=== PATIENT | female | born 1990 | race Caucasian/White ===

== ENCOUNTER → 2017-12-16 | Outpatient (CLI) | payer OTHER | LOC: M SMT 08:59 | DX: M50.323 Other cervical disc degeneration at C6-C7 level (principal) | CPT/HCPCS: 72052 ==

== ENCOUNTER → 2018-04-27 | Outpatient (CLI) | payer OTHER ==
--- NOTE | 2018-04-29 13:02 | REP ---
MR CERVICAL SPINE WITHOUT CONTRAST: HISTORY: Cervicalgia. A small central disc protrusion is present at the C4-5 level. There is minimal effacement of the thecal sac without spinal cord compression. The C4 neural foramina are patent. A disc bulge is present at the C5-6 level. There is minimal effacement of the thecal sac without spinal cord compression. The C5 neural foramina are patent. A disc bulge and small central disc extrusion are present at the C6-7 level. There is minimal spinal cord compression. Uncinate process hypertrophy is present on the left. This produces minimal narrowing of the left C6 neural foramen. The right C6 neural foramen is patent. There is no other disc bulge or herniation. The remaining neural foramina are patent. The spinal cord is normal in signal intensity. Increased signal intensity on T2 weighted images is present in the superior endplate of the C7 vertebral body. This represents degenerative change. IMPRESSION: There is cervical spondylosis at the C4-5 through C6-7 levels most significant at the C6-7 level where there is minimal spinal cord compression. Electronically Signed by Mamadou Cornelius MD 04/29/2018 01:28 P
== END ==
LOC: M RAD 15:52
PROVIDERS: ATTEND Physician Assistant Medical
DX: M47.12 Other spondylosis with myelopathy, cervical region (principal)

== ENCOUNTER → 2018-05-19 | Outpatient (REF) | payer OTHER | LOC: M SFHCPLAZ 15:38 | PROVIDERS: ATTEND Physician Assistant Medical | DX: Z12.4 Encounter for screening for malignant neoplasm of cervix (principal); Z78.9 Other specified health status | CPT/HCPCS: G0123; G0463 ==

== ENCOUNTER → 2018-07-21 | Outpatient (CLI) | payer OTHER ==
--- NOTE | 2018-07-21 14:21 | REP ---
REASON FOR EXAM: Dyspnea. PRIORS: None. FINDINGS: The superior mediastinal structures are midline. The cardiac silhouette is unremarkable in size, shape, and position. The diaphragmatic surfaces of the lungs are regular, and the costophrenic angles are clear. The pulmonary wang are clear. The imaged osseous structures are intact. IMPRESSION: There is no acute cardiopulmonary disease. Electronically Signed by Manuel Ortiz DO 07/21/2018 03:37 P
== END ==
LOC: M SMT 12:58
PROVIDERS: ATTEND Physician Assistant Medical
DX: R06.02 Shortness of breath (principal)
CPT/HCPCS: 71046; 87804; G0463

== ENCOUNTER 2018-11-03 08:45 | Outpatient (RCR) | payer OTHER | END 2018-11-04 | LOC: M PT 08:45 | PROVIDERS: ATTEND Physician Assistant Medical | DX: Z51.89 Encounter for other specified aftercare (principal); G95.20 Unspecified cord compression ==

== ENCOUNTER → 2018-11-26 | Outpatient (CLI) | payer OTHER ==
[2018-11-26 13:29] LABS: HCG, SERUM QUALITATIVE POSITIVE (NEGATIVE)
[2018-11-26 13:58] LABS: HCG, SERUM QUANTITATIVE 18192 MIU/ML
== END ==
LOC: M LAB 12:01
PROVIDERS: ATTEND Physician Assistant Medical
DX: Z34.91 Encounter for supervision of normal pregnancy, unspecified, first trimester (principal); Z3A.00 Weeks of gestation of pregnancy not specified

== ENCOUNTER → 2018-11-27 | Outpatient (CLI) | payer OTHER ==
--- NOTE | 2018-11-27 13:29 | REP ---
First trimester pelvic ultrasound for vaginal bleeding, stat request: The study is performed with transabdominal, endovaginal and Doppler ultrasound assessment: There are two intrauterine gestational sacs. There is a normal size yolk sac within each gestational sac, one yolk sac measuring 4 mm and the other 3 mm in diameter. The findings are compatible with a dichorionic, diamniotic gestation. The mean gestational sac diameter of twin A is 11.3 ml corresponding to a gestational age of 6 weeks 1 day. The mean gestational sac diameter of twin B is 14.3 mm corresponding to a gestational age of 6 weeks 5 days. No subchorionic hematoma is identified. The ovaries are normal size. The right ovary measuring 3.421 x 2.1 cm in left ovary measuring 2.6 x 1.5 x 1.6 cm. The There is a right ovarian 2.1 cm cyst, possibly a corpus luteum. No free fluid in the pelvis. Impression: There is a diamniotic, dichorionic intrauterine gestation. Electronically Signed by Hema Smith MD 11/27/2018 01:21 P
== END ==
LOC: M RAD 12:11
PROVIDERS: ATTEND Physician Assistant Medical
DX: O46.90 Antepartum hemorrhage, unspecified, unspecified trimester (principal); Z3A.01 Less than 8 weeks gestation of pregnancy

== ENCOUNTER 2018-12-03 08:00 | Outpatient (RCR) | payer OTHER | END 2018-12-05 | LOC: M PT 08:00 | PROVIDERS: ATTEND Physician Assistant Medical | DX: G95.20 Unspecified cord compression (principal) ==

== ENCOUNTER → 2018-12-08 | Outpatient (CLI) | payer OTHER ==
[2018-12-08 13:56] LABS: BASO % 0.7 % (0.0-1.0); EOS % 0.5 % (0.0-3.0); HEMATOCRIT 34.2 % (36.0-47.0); HEMOGLOBIN 11.9 g/dl (12.0-15.5); LYMPH # 1.6 10^3/uL (1.5-5.0); LYMPH % 26.5 % (24.0-44.0); MEAN CORPUSCULAR HEMOGLOBIN 32.9 pg (27.0-33.0); MEAN CORPUSCULAR HGB CONC 34.8 g/dl (32.0-36.5); MEAN CORPUSCULAR VOLUME 94.5 fl (80.0-96.0); MONO # 0.5 10^3/uL (0.0-0.8); MONO % 8.5 % (0.0-5.0); NEUTROPHILS # 3.8 10^3/uL (1.5-8.5); NEUTROPHILS % 63.5 % (36.0-66.0); PLATELET COUNT, AUTOMATED 234 10^3/uL (150-450); RED BLOOD COUNT 3.62 10^6/uL (4.00-5.40)
[2018-12-08 15:45] LABS: CHLAMYDIA DNA AMPLIFICATION NEGATIVE (NEGATIVE); GC DNA AMPLIFICATION NEGATIVE (NEGATIVE)
[2018-12-09 13:20] LABS: HEPATITIS C VIRUS ABY INDEX < 0.0 INDEX (<0.8); HIV 1&2 SCREEN CENTAUR NEGATIVE (NEGATIVE); RUBELLA IgG QUALITATIVE IMMUNE (IMMUNE)
== END ==
LOC: M SMT 08:38
PROVIDERS: ATTEND Advanced Practice Midwife
DX: Z34.81 Encounter for supervision of other normal pregnancy, first trimester (principal); Z36.89 Encounter for other specified antenatal screening

== ENCOUNTER → 2019-01-07 | Outpatient (CLI) | payer OTHER | LOC: M SMT 11:18 | PROVIDERS: ATTEND Specialist | DX: Z13.79 Encounter for other screening for genetic and chromosomal anomalies (principal) ==

== ENCOUNTER 2019-01-14 10:15 | Outpatient (RCR) | payer OTHER | END 2019-02-04 | LOC: M PT 10:15 | PROVIDERS: ATTEND Physician Assistant Medical | DX: G95.20 Unspecified cord compression (principal) ==

== ENCOUNTER → 2019-02-23 | Outpatient (CLI) | payer OTHER ==
--- NOTE | 2019-02-23 19:52 | REP ---
TWIN OB ULTRASOUND: Real-time sonographic evaluation of the gravid uterus performed. There is a living diamniotic dichorionic twin gestation. Estimated gestational age is 18 weeks 2 days, EDC 07/25/2019. There is concordant growth. Placenta of fetus A is posteriorly on the right and grade 0 and for fetus B posterior and fundal and grade 0, with no previa or abruption. Cervical length was not obtained for reasons unknown to me. FETUS A: BPD 43 mm = 18 weeks 6 days, 67th percentile HC 161 mm = 18 weeks 6 days, 68th percentile AC 131 mm = 18 weeks 4 days, 57th percentile FL 27 mm = 18 weeks 2 days, 50th percentile HC/AC ratio 1.23. Estimated weight 244 grams, 55th percentile. heart rate 155 beats per minute. SEEN/GROSSLY UNREMARKABLE Lateral ventricles yes Posterior fossa yes Upper lip yes Four-chamber heart yes LVOT yes RVOT yes Stomach yes Cord insertion yes Three vessel cord yes Kidneys yes Bladder yes Spine yes position: Variable. Amniotic fluid: Within normal limits, deepest pocket of fluid 4.3 cm. FETUS B: BPD 41 mm = 18 weeks 2 days, 50th percentile HC 148 mm = 17 weeks 6 days, 36th percentile AC 142 mm = 19 weeks 4 days, 76th percentile FL 28 mm = 18 weeks 3 days, 53rd percentile HC/AC ratio 1.05. Estimated weight 262 grams, 69th percentile. heart rate 152 beats per minute. SEEN/GROSSLY UNREMARKABLE Lateral ventricles yes Posterior fossa yes Upper lip yes Four-chamber heart yes LVOT yes RVOT yes Stomach yes Cord insertion yes Three vessel cord yes Kidneys yes Bladder yes Spine yes position: Variable in the region of the maternal fundus. Amniotic fluid: Within normal limits, deepest pocket of fluid 3.9 cm. Electronically Signed by Hema Vázquez MD 02/24/2019 03:37 P
== END ==
LOC: M RAD 14:12
PROVIDERS: ATTEND Advanced Practice Midwife
DX: O30.041 Twin pregnancy, dichorionic/diamniotic, first trimester (principal); Z3A.18 18 weeks gestation of pregnancy

== ENCOUNTER 2019-02-28 03:19 | Outpatient (CLI) | payer OTHER ==
[~2019-02-28] VITALS: Ht 170.2 cm; Wt 65.4 kg
[2019-02-28 03:33] VITALS: BP 112/63
[2019-02-28] MEDS ORDERED: LACTATED RINGER'S 1000 ML IV STA (04:48)
[2019-02-28] MEDS ORDERED: LR 1,000 ML IV SCH (04:48)
[2019-02-28 04:57] LABS: BASO % 0.3 % (0.0-1.0); EOS % 0.2 % (0.0-3.0); HEMATOCRIT 32.7 % (36.0-47.0); LYMPH # 1.4 10^3/uL (1.5-5.0); LYMPH % 11.3 % (24.0-44.0); MEAN CORPUSCULAR HEMOGLOBIN 31.8 pg (27.0-33.0); MEAN CORPUSCULAR HGB CONC 33.6 g/dl (32.0-36.5); MEAN CORPUSCULAR VOLUME 94.5 fl (80.0-96.0); MONO # 0.8 10^3/uL (0.0-0.8); MONO % 6.1 % (0.0-5.0); NEUTROPHILS # 10.4 10^3/uL (1.5-8.5); NEUTROPHILS % 81.7 % (36.0-66.0); PLATELET COUNT, AUTOMATED 266 10^3/uL (150-450); RED BLOOD COUNT 3.46 10^6/uL (4.00-5.40); WHITE BLOOD COUNT 12.7 10^3/uL (4.0-10.0)
[2019-02-28] MEDS ORDERED: INDOMETHACIN 25 MG CAP PO ONE (05:00)
[2019-02-28] MEDS ORDERED: CRIN8GEL4 PV (05:06)
[2019-02-28 05:17] LABS: APPEARANCE, URINE CLEAR (CLEAR); BACTERIA, URINE AUTO NEGATIVE (NEGATIVE); BILIRUBIN, URINE AUTO NEGATIVE (NEGATIVE); BLOOD, URINE BLOOD 1+ (NEGATIVE); COLOR, URINE STRAW (YELLOW); GLUCOSE, URINE (UA) AUTO NEGATIVE (NEGATIVE); KETONE, URINE AUTO NEGATIVE (NEGATIVE); LEUKOCYTE ESTERASE, URINE AUTO NEGATIVE (NEGATIVE); NITRITE, URINE AUTO NEGATIVE (NEGATIVE); PROTEIN, URINE AUTO NEGATIVE (NEGATIVE); RBC, URINE AUTO 2 /HPF (0-3); SPECIFIC GRAVITY URINE AUTO 1.006 (1.002-1.035); SQUAMOUS EPITHELIAL CELL UR AU 1 /HPF (0-6); UROBILINOGEN, URINE AUTO 0.2 mg/dL (0.0-2.0); WBC, URINE AUTO 0 /HPF (0-3)
[2019-02-28] MEDS ORDERED: PRENTAB9 PO (05:19)
[2019-02-28 07:11] VITALS: BP 103/71
== END 2019-02-28 11:15 | disposition home or self-care (01) ==
LOC: M LDO 03:19
PROVIDERS: ATTEND Obstetrics & Gynecology
DX: O26.852 Spotting complicating pregnancy, second trimester (principal); O30.042 Twin pregnancy, dichorionic/diamniotic, second trimester; Z3A.19 19 weeks gestation of pregnancy
CPT/HCPCS: 81001; 85025; 86850; 86900; 86901; G0378; G0463

== ENCOUNTER 2019-03-01 16:57 | Outpatient (CLI) | payer OTHER ==
[~2019-03-01] VITALS: Ht 170.2 cm; Wt 63.6 kg
[~2019-03-01 16:57] MED LIST: CRIN8GEL4 PV; PRENTAB9 PO
[2019-03-01 17:11] VITALS: BP 109/65
--- NOTE | 2019-03-01 17:38 | IPNPDOC ---
Text Note Date of Service The patient was seen on 03/01/19. NOTE Subjective: Patient is a 28-year-old female who is a at 19 weeks 1 day gestation with an RICHAR of 07/25/19 based off of her LMP and consistent with her first trimester ultrasound. She initiated care in her first trimester with [facility]. She was seen this weekend in L&D with complaints of contractions and given Indocin, which helped stop her contractions and make her comfortable. She was found to have a shortened cervix of 2.4 cm and given vaginal progesterone to use HS. She denies vaginal bleeding or leaking of fluid. She reports her contractions started last night and she was unable to sleep through them. They were only every 15-20 minutes but now they have increased to every 5-10 minutes. She denies vaginal bleeding or spotting like she had this weekend. She reports active movement and denies leaking of fluid. She does report having a headache but has also been crying on and off for the last few hours. Reports that since she has been here her contractions aren't as frequent but are still uncomfortable. Objective: Bedside ultrasound: Twin A with FHR of 156 in cephalic presentation with active movement. Twin B is transverse with head towards maternal left with FHR of 144 and active movement. A+O x3. Respiratory rate is regular w ith no use of accessory muscles. Abdomen is soft and non-tender with palpation. Mild palpation with contraction. Assessment: Di/di twin gestation at 19.1 weeks gestation, contractions Plan: Cervical length ultrasound ordered. Consulted Dr. Crockett for plan of care. Reviewed cervical length of 1.8 cm now. Instructed to given Indocin 50 mg now and continue to monitor. Continue with vaginal progesterone. CBC ordered. Will continue to observe. WINSOME KOWALSKI CNM Mar 01, 2019 17:38
--- NOTE | 2019-03-01 18:37 | REPVR ---
PROCEDURE INFORMATION: Exam: US , Transvaginal Exam date and time: 03/01/2019 6:23 PM Age: 28 years old Clinical history: Lmp or gestational age (in weeks): 19; Antepartum complications; Other: Contractions; ; Additional info: Cervical length- contrctions TECHNIQUE: Imaging protocol: Real-time transvaginal obstetrical ultrasound of the maternal pelvis and a first trimester with image documentation. Transvaginal imaging was used for better evaluation of the fetus and adnexa. COMPARISON: US OBS SINGEL GEST 02/23/2019 2:31 PM FINDINGS: GESTATION: Gestation: Twin gestation Heart rates: heart rate for baby A is 160 beats per minute and for baby B 156 beats per minute. Presentation: Fetus A located in a vertex position on the maternal left, and fetus B in a breech position on the maternal right. MATERNAL: Cervix: Cervical length measures 2.5 cm with mild to funneling at the internal os. IMPRESSION: 1. Cervical length measures 2.5 cm with mild to funneling at the internal os. 2. structural survey was not requested or performed at the time of this examination. Electronically signed by: Aki Cortés On 03/01/2019 18:37:43 PM
[2019-03-01 18:57] LABS: HEMATOCRIT 32.1 % (36.0-47.0); HEMOGLOBIN 10.6 g/dl (12.0-15.5); PLATELET COUNT, AUTOMATED 284 10^3/uL (150-450); RED BLOOD COUNT 3.31 10^6/uL (4.00-5.40); WHITE BLOOD COUNT 16.2 10^3/uL (4.0-10.0)
[2019-03-01] MEDS ORDERED: INDOMETHACIN 25 MG CAP PO ONE (19:00)
[2019-03-01] MEDS ORDERED: diphenhydrAMINE 50 MG CAP PO STA (21:11)
[2019-03-02 00:18] VITALS: BP 81/47
[2019-03-02 04:23] VITALS: BP 92/56
[2019-03-02 07:33] VITALS: BP 109/65
== END 2019-03-02 10:45 | disposition home or self-care (01) ==
LOC: M LDO 16:57
PROVIDERS: ATTEND Advanced Practice Midwife
DX: O30.042 Twin pregnancy, dichorionic/diamniotic, second trimester (principal); O26.872 Cervical shortening, second trimester; O99.89 Other specified diseases and conditions complicating pregnancy, childbirth and the puerperium; R51 Headache; Z3A.19 19 weeks gestation of pregnancy
CPT/HCPCS: 36415; 76817; 85027; G0378; G0463

== ENCOUNTER 2019-03-02 20:04 | Inpatient (IN) | payer OTHER ==
[~2019-03-02] VITALS: Ht 170.2 cm; Wt 65.0 kg
[2019-03-02 20:26] VITALS: BP 108/62
[2019-03-02] MEDS ORDERED: INDOMETHACIN 25 MG CAP PO ONE (21:00)
[2019-03-02] MEDS ORDERED: BUTORPHANOL 2 MG/ML INJ (J0595) IV ONE (22:15)
[2019-03-02] MEDS ORDERED: PROMETHAZINE INJ 25 MG/ML VIAL (J2550) IV PRN (22:15)
[2019-03-02] MEDS ORDERED: LACTATED RINGER'S 1000 ML IV STA (22:28)
--- NOTE | 2019-03-02 23:02 | HPE ---
DATE OF ADMISSION: 03/02/2019 REASON FOR ADMISSION: premature rupture of membranes. HISTORY OF PRESENT ILLNESS: Mrs. Sorto is a 28-year-old 1, who presents at 19 weeks 2 days estimated gestational age by last menstrual period confirmed by 6-week ultrasound with complaints of contractions. Her estimated due date is 07/25/2019. This is a patient who has been recently followed for shortened cervix, which was diagnosed on the . She was noted to have a cervical length to 2.5 cm, was started on vaginal progesterone. She represented yesterday with increased contractions, was treated with Indomethacin and was monitored overnight with symptom improvement. She was discharged earlier today with close followup tomorrow morning and was instructed on vaginal progesterone and modified bedrest/ She representing with an increase contractions. Reported some vaginal spotting. She denied at the time any leakage of fluid. Her course was remarkable again for Di/Di twin gestation. PAST MEDICAL HISTORY: History of anxiety/depression. PAST SURGICAL HISTORY: None. OBSTETRICAL HISTORY: She is a 1. SOCIAL HISTORY: She denies any alcohol, tobacco or drug use during . Her medications includes vitamins and Crinone. ALLERGIES: She has no known drug allergies. PHYSICAL EXAMINATION: Vital signs: Stable. She is afebrile. She had positive Doppler tones for both twins. Her abdomen is currently soft, gravid, nontender. On sterile spec exam, there was a significant about purulent foul-smelling fluid, positive for pooling and tested for Nitrazine, as well as ferning. Cervix appeared to be closed. Transabdominal ultrasound demonstrated oligohydramnios twin A, cephalic presentation. Twin B breech with adequate fluid present. LABS: Her blood type is O+, antibody screen is negative. Rubella is immune. RPR is nonreactive. Hepatitis surface antigen negative. Hepatitis C is nonreactive. Chlamydia, gonorrhea screens are negative. ASSESSMENT: Mrs. Sorto is a 28-year-old 1 with diamniotic dichorionic twin gestation with premature rupture of twin A at 19 weeks gestation. PLANS: 1. Admit to Labor delivery, complete blood count (CBC), type and screen. 2. The patient has been thoroughly counseled in regards to her diagnosis. We discussed expected management of her labor and the possibilities of delivery twin A. We discussed comfort measures that is provided for twin A considering pre-viability 3. Stadol, Phenergan as needed for discomfort. An epidural was also discussed. MTDD
[2019-03-02 23:07] LABS: HEMATOCRIT 33.7 % (36.0-47.0); HEMOGLOBIN 11.3 g/dl (12.0-15.5); MEAN CORPUSCULAR HEMOGLOBIN 31.5 pg (27.0-33.0); MEAN CORPUSCULAR HGB CONC 33.5 g/dl (32.0-36.5); MEAN CORPUSCULAR VOLUME 93.9 fl (80.0-96.0); PLATELET COUNT, AUTOMATED 286 10^3/uL (150-450); RED BLOOD COUNT 3.59 10^6/uL (4.00-5.40); WHITE BLOOD COUNT 13.4 10^3/uL (4.0-10.0)
[2019-03-02 23:16] VITALS: BP 108/61
[2019-03-03] VITALS (17 sets, daily range): BP systolic 95–114; BP diastolic 52–69
[2019-03-03 00:28] LABS: CHLAMYDIA DNA AMPLIFICATION NEGATIVE (NEGATIVE); GC DNA AMPLIFICATION NEGATIVE (NEGATIVE)
[2019-03-03] MEDS: INDOMETHACIN 25 MG CAP PO SCH ×4 (01:00→17:00)
[2019-03-03] MEDS: LR 1,000 ML IV SCH ×2 (07:22→14:12)
[2019-03-03] MEDS: ACETAMINOPHEN 500 MG TAB PO PRN ×3 (10:08→16:16)
--- NOTE | 2019-03-03 14:56 | IPNPDOC ---
Text Note Date of Service The patient was seen on 03/03/19. NOTE Subjective: Patient reports she still has some cramping. she does reports some vaginal pressure and is questioning movement lower uterine or vaginal area. Reviewed options for pathology with genetic testing. Patient does not desire a hoahaoism or for twin A. She does express the desire to have fetus sent to pathology without genetic testing due to the likelihood of PPROM and delivery being due to infection as evidence by dark amniotic fluid with an odor, temperature of 100.3 and elevated WBC count. Objective: VS and labs see below. Abdomen is soft and non-tender to palpation. Refused vaginal exam or speculum exam. Bedside ultrasound shows Twin B in breech position with parts very low and possibly in the vagina. Scant bright red bleeding noted on towel between legs. Assessment: di/di twin gestation with PPROM and IUFD of twin A at 19 weeks 3 days gestation. Plan: Continue to monitor for changes such as increased pressure, increased pain, SROM, increased bleeding, or painful contractions. Plan of care reviewed with patient. VS,Gine, I+O VS, Gnie, I+O Laboratory Tests 03/02/19 22:13 Vital Signs Date Time Temp Pulse Resp B/P (MAP) Pulse Ox O2 Delivery O2 Flow Rate FiO2 03/03/19 13:53 98.6 98 16 101/58 (72) Vital Signs Label Value Date Time Patient Temperature 100.3 degrees F 03/02/196 Pulse 80 03/02/192315 Respiratory Rate 20 bpm 03/02/192315 Blood Pressure Assessment 108/61 (77) 03/02/19 231 Source Automatic Cuff (NIBP) WINSOME KOWALSKI CNM Mar 03, 2019 14:56
--- NOTE | 2019-03-03 15:20 | DN ---
DATE: 03/03/2019 GENDER: Male. ANESTHESIA: None. ESTIMATED BLOOD LOSS: 100 mL. HISTORY AND HOSPITAL COURSE: Ms. Sorto is a 28-year-old 1 with diamniotic dichorionic twin gestation at 19 weeks, four days who presented with complaints of contraction. Upon evaluation, she was noted to have spontaneous rupture of membranes with purulent foul-smelling fluid for twin A. She was admitted. Approximately two hours after her admission, she delivered a stillbirth male infant, weight was 244 grams and cord was clamped times, was cut and the fetus was handed to mother. Cord was left clamped. A transabdominal ultrasound was performed showing twin B with a heart rate of approximately 140s in a cephalic presentation, adequate fluid. Ms. Sorto's contractions have since subsided and currently remain stable. Plan of care is expectant management. KATRINA
[2019-03-03] MEDS ORDERED: IBUPROFEN 800 MG TAB PO PRN ×2 (16:45→20:30)
[2019-03-03] MEDS ORDERED: AMPICILLIN SOD/SULBACTAM SOD 3 GM in D5W MINI-BAG PLUS 100 ML IV SCH (17:00)
[2019-03-03] MEDS ORDERED: UNASYN 3 GM VIAL As Ordered ONE (17:14)
[2019-03-03] MEDS ORDERED: SILVER NITRATE APPLICATOR As Ordered ONE (17:30)
--- NOTE | 2019-03-03 17:42 | DNPDOC ---
[facility] Delivery Note Delivery Note DATE OF DELIVERY: 03/03/19 AT PREDELIVERY DIAGNOSIS: 19-3/7 weeks' gestation and labor. POST DELIVERY DIAGNOSIS: Delivered. PROCEDURE: Spontaneous vaginal delivery. PROVIDER: Winsome Pendleton CNM, WHNP ANESTHESIA: NONE. ESTIMATED BLOOD LOSS: 100 mL. FINDINGS: 226 grams, female, miscarriage. DELIVERY SUMMARY: Patient is a 28-year-old female who is now a at 19.3 weeks gestation who presented to L&D with painful contractions and spotting. She spontaneously delivered Twin A after she spontaneously ruptured. The patient called out with complaints of increased pressure and something sticking out of her vagina. On inspection she had a large bulging bag of fluid sticking out of her vagina. parts were felt at the introitus. The membranes were ruptured and she pushed to a living female in breech presentation. The cord was clamped and the fetus was given to the mother to hold. The fetus was moving and had a FHR. At 1716 the fetus was pronounced with no movement and no HR. The placentas are both still intact at this time. She had a fever of 100.5 at time of delivery of Twin B. A dose of Ibuprofen was given and an order for Unasyn started. Dr. Freeman was notified and instructed to order Unasyn and cytotec to help the placentas deliver. The patient refused the Cytotec and requested to have a D&C for the placentas instead. Anesthesia and the OR were notified. Dr. Freeman is on his way to perform the D&C. WINSOME PENDLETON CNM Mar 03, 2019 17:42
[2019-03-03 17:47] LABS: HEMATOCRIT 25.5 % (36.0-47.0); MEAN CORPUSCULAR HEMOGLOBIN 32.3 pg (27.0-33.0); MEAN CORPUSCULAR HGB CONC 33.3 g/dl (32.0-36.5); PLATELET COUNT, AUTOMATED 214 10^3/uL (150-450); RED BLOOD COUNT 2.63 10^6/uL (4.00-5.40); WHITE BLOOD COUNT 12.9 10^3/uL (4.0-10.0)
[2019-03-03] MEDS ORDERED: miSOPROStol 200 MCG TAB (S0191) PR ONE (18:00)
[2019-03-03 18:04] LABS: HEMOGLOBIN 8.5 g/dl (12.0-15.5)
[2019-03-03] MEDS ORDERED: OXYTOCIN INJ 10 UNITS/ML VIAL (J2590) As Ordered ONE (18:43)
[2019-03-03] MEDS ORDERED: METHYLERGONOVINE MALEATE 0.2 MG/ML VIAL (J2210) As Ordered ONE (19:14)
[2019-03-03] MEDS ORDERED: ONDANSETRON 4MG/2ML VIAL (J2405) As Ordered ONE (19:15)
[2019-03-03] MEDS ORDERED: dexameTHASONE 4 MG/ML 1ML VIAL (J1100) As Ordered ONE (19:15)
[2019-03-03] MEDS ORDERED: ROCURONIUM BROMIDE 50 MG/5 ML VIAL As Ordered ONE (19:15)
[2019-03-03] MEDS ORDERED: fentaNYL 100 MCG/2 ML INJECTION (J3010) As Ordered ONE (19:15)
[2019-03-03] MEDS ORDERED: MIDAZOLAM INJ 2 MG/2 ML VIAL (J2250) As Ordered ONE (19:15)
[2019-03-03] MEDS ORDERED: PROPOFOL 200 MG/20 ML VIAL As Ordered ONE (19:15)
[2019-03-03] MEDS ORDERED: LIDOCAINE 2% INJ 100 MG/5 ML SDV (FOR ANES.) As Ordered ONE (19:15)
[2019-03-03] MEDS ORDERED: SUGAMMADEX SODIUM 500 MG/5 ML VIAL (BRIDION) As Ordered ONE (19:15)
[2019-03-03] MEDS ORDERED: LR 1,000 ML IV SCH ×2 (19:45→20:22)
[2019-03-03] MEDS ORDERED: PERCOCET 5MG/325MG TAB PO PRN (19:45)
[2019-03-03] MEDS ORDERED: ONDANSETRON 4MG/2ML VIAL (J2405) IV PRN ×2 (19:45→20:30)
[2019-03-03] MEDS ORDERED: fentaNYL 100 MCG/2 ML INJECTION (J3010) IV PRN (19:45)
[2019-03-03 19:52] LABS: HEMATOCRIT 24.2 % (36.0-47.0); HEMOGLOBIN 7.9 g/dl (12.0-15.5); MEAN CORPUSCULAR HEMOGLOBIN 31.3 pg (27.0-33.0); MEAN CORPUSCULAR HGB CONC 32.6 g/dl (32.0-36.5); PLATELET COUNT, AUTOMATED 161 10^3/uL (150-450); RED BLOOD COUNT 2.52 10^6/uL (4.00-5.40); WHITE BLOOD COUNT 13.5 10^3/uL (4.0-10.0)
[2019-03-03] MEDS ORDERED: PROMETHAZINE 25 MG TAB PO PRN (20:30)
[2019-03-03] MEDS ORDERED: MEASLES,MUMPS,RUBELLA VACCINE INJ (MMR-II) (90707) SC SCH (20:30)
[2019-03-03] MEDS ORDERED: IBUPROFEN 600 MG TAB PO PRN (20:30)
[2019-03-03] MEDS ORDERED: ACETAMINOPHEN TAB 650MG DOSE (2X325MG) PO PRN (20:30)
[2019-03-03] MEDS ORDERED: RHOGAM 300 MCG (1500 IU) INJ (J2790) IM SCH (20:30)
[2019-03-03] MEDS ORDERED: ACETAMINOPHEN 500 MG TAB PO PRN (20:30)
[2019-03-03] MEDS ORDERED: DIBUCAINE 1% OINTMENT 30GM TOP PRN (20:30)
[2019-03-03] MEDS ORDERED: DOCUSATE SODIUM 100 MG CAP PO PRN (20:30)
[2019-03-03] MEDS: AMPICILLIN SOD/SULBACTAM SOD 3 GM in D5W MINI-BAG PLUS 100 ML IV SCH (23:18)
[2019-03-03] MEDS ORDERED: diphenhydrAMINE 50 MG CAP PO ONE (23:30)
[2019-03-04] VITALS (10 sets, daily range): BP systolic 81–114; BP diastolic 44–67
[2019-03-04] MEDS: AMPICILLIN SOD/SULBACTAM SOD 3 GM in D5W MINI-BAG PLUS 100 ML IV SCH ×3 (05:31→17:11)
[2019-03-04 06:05] LABS: HEMATOCRIT 25.8 % (36.0-47.0); HEMOGLOBIN 8.6 g/dl (12.0-15.5); MEAN CORPUSCULAR HEMOGLOBIN 30.9 pg (27.0-33.0); MEAN CORPUSCULAR HGB CONC 33.3 g/dl (32.0-36.5); MEAN CORPUSCULAR VOLUME 92.8 fl (80.0-96.0); PLATELET COUNT, AUTOMATED 198 10^3/uL (150-450); RED BLOOD COUNT 2.78 10^6/uL (4.00-5.40); WHITE BLOOD COUNT 11.1 10^3/uL (4.0-10.0)
[2019-03-04] MEDS ORDERED: PRENATAL VITAMINS CHEWABLE TABLET PO SCH (09:00)
== END 2019-03-04 18:50 | disposition home or self-care (01) | DRG 762 ==
LOC: M LDO 20:04 → M LDI 22:23
PROVIDERS: ADMIT Obstetrics & Gynecology; ATTEND Obstetrics & Gynecology
PROC: 10D17ZZ Extraction of Products of Conception, Retained, Via Natural or Artificial Opening (ICD-10-PCS; 2019-03-03)
PROC: 10E0XZZ Delivery of Products of Conception, External Approach (ICD-10-PCS; principal; 2019-03-03 17:23)
DX: O42.012 Preterm premature rupture of membranes, onset of labor within 24 hours of rupture, second trimester (principal); Z37.3 Twins, one liveborn and one stillborn; O41.1020 Infection of amniotic sac and membranes, unspecified, second trimester, not applicable or unspecified; O72.0 Third-stage hemorrhage; Z3A.19 19 weeks gestation of pregnancy; O30.042 Twin pregnancy, dichorionic/diamniotic, second trimester; O32.1XX2 Maternal care for breech presentation, fetus 2

== ENCOUNTER → 2019-07-08 | Outpatient (REF) | payer OTHER ==
[2019-07-08 09:46] LABS: BASO % 0.9 % (0.0-1.0); EOS # 0.1 10^3/uL (0.0-0.5); EOS % 4.3 % (0.0-3.0); HEMATOCRIT 39.9 % (36.0-47.0); HEMOGLOBIN 13.1 g/dl (12.0-15.5); LYMPH # 1.5 10^3/uL (1.5-5.0); LYMPH % 46.5 % (24.0-44.0); MEAN CORPUSCULAR HEMOGLOBIN 30.5 pg (27.0-33.0); MEAN CORPUSCULAR HGB CONC 32.8 g/dl (32.0-36.5); MEAN CORPUSCULAR VOLUME 92.8 fl (80.0-96.0); MONO # 0.3 10^3/uL (0.0-0.8); MONO % 8.6 % (0.0-5.0); NEUTROPHILS # 1.3 10^3/uL (1.5-8.5); NEUTROPHILS % 39.7 % (36.0-66.0); PLATELET COUNT, AUTOMATED 328 10^3/uL (150-450); WHITE BLOOD COUNT 3.3 10^3/uL (4.0-10.0)
[2019-07-08 10:16] LABS: ALBUMIN 3.9 GM/DL (3.2-5.2); ALT/SGPT 20 U/L (12-78); BILIRUBIN,TOTAL 0.5 MG/DL (0.2-1.0); BLOOD UREA NITROGEN 11 MG/DL (7-18); CALCIUM LEVEL 9.1 MG/DL (8.5-10.1); CARBON DIOXIDE LEVEL 28 MEQ/L (21-32); CHLORIDE LEVEL 107 MEQ/L (98-107); CHOLESTEROL LEVEL 187 MG/DL (<200); CHOLESTEROL RISK RATIO 2.174 (<5); CREATININE FOR GFR 0.72 MG/DL (0.55-1.30); FREE T4 0.88 NG/DL (0.76-1.46); GLOMERULAR FILTRATION RATE > 60.0 (>60); GLUCOSE, FASTING 94 MG/DL (70-100); HDL CHOLESTEROL 86 MG/DL (>40); LDL CHOLESTEROL 93 MG/DL (<100); NON-HDL-C 101 MG/DL; POTASSIUM SERUM 4.6 MEQ/L (3.5-5.1); SODIUM LEVEL 140 MEQ/L (136-145); TRIGLYCERIDES LEVEL 39 MG/DL (<150)
[2019-07-08 10:32] LABS: DRVV SCREEN 31.2 SEC
[2019-07-08 10:33] LABS: PTT LUPUS TYPE ANTICOAG SCREEN 0.8 (0-1.2)
[2019-07-08 10:44] LABS: INR 1.02; PROTHROMBIN TIME 13.1 SECONDS (11.8-14.0)
[2019-07-08 10:45] LABS: PARTIAL THROMBOPLASTIN TIME 28.6 SECONDS (25.0-38.4)
== END ==
LOC: M SFHCPLAZ 08:53
PROVIDERS: ATTEND Physician Assistant Medical
DX: Z13.220 Encounter for screening for lipoid disorders (principal); F41.9 Anxiety disorder, unspecified; Z87.51 Personal history of pre-term labor

== ENCOUNTER → 2019-12-10 | Outpatient (REF) | payer OTHER | LOC: M LAB REF 13:34 | PROVIDERS: ATTEND Physician Assistant Medical | DX: R30.0 Dysuria (principal) | CPT/HCPCS: 87086; G0463 ==

== ENCOUNTER → 2020-02-22 | Outpatient (REF) | payer OTHER | LOC: M SFHCPLAZ 11:45 | PROVIDERS: ATTEND Physician Assistant Medical | DX: F41.9 Anxiety disorder, unspecified (principal) ==

== ENCOUNTER → 2020-03-23 | Outpatient (CLI) | payer SELFPAY | LOC: M LABSMTC 10:40 | PROVIDERS: ATTEND Pediatrics | DX: Z20.828 Contact with and (suspected) exposure to other viral communicable diseases (principal) ==

== ENCOUNTER → 2020-04-13 | Outpatient (CLI) | payer OTHER | LOC: M LABSMTC 11:44 | PROVIDERS: ATTEND Family Medicine | DX: Z20.822 Contact with and (suspected) exposure to COVID-19 (principal) ==

== ENCOUNTER → 2020-05-04 | Outpatient (CLI) | payer OTHER ==
--- NOTE | 2020-05-06 02:32 | ECWPNPC ---
PATIENT NAME: FOZIA COHEN : 1990 GENDER: FEMALE VISIT DATE: 05/04/2020 DISCHARGE DATE: 05/04/20920 VISIT LOCKED DATE TIME: PHYSICIAN: GERALDINE WEBSTER PHYSICIAN PAGER NO: ACTIVE RESOURCE: GERALDINE WEBSTER REASON FOR APPOINTMENT 1. NECK HISTORY OF PRESENT ILLNESS DEPRESSION SCREENING: PHQ-2 (2015 EDITION) LITTLE INTEREST OR PLEASURE IN DOING THINGS?NOT AT ALL FEELING DOWN, DEPRESSED, OR HOPELESS?NOT AT ALL TOTAL SCORE0 GENERAL: PLEASANT 29-YEAR-OLD FEMALE REFERRED BY PRIMARY CARE TO EVALUATE PERSISTENT NECK PAIN WITH LEFT ARM RADICULAR SYMPTOMS. STATES THAT AFTER BIKING IN 2018 SHE NOTICED STIFFNESS IN HER NECK WITH RADIATION INTO HER LEFT UPPER ARM. THIS IMPROVED WITH CONSERVATIVE CARE BUT CONSTANT ACHING PAIN PERSIST. EVENTUALLY SEEN BY PRIMARY CARE IN 2018 AND AN MRI OF THE CERVICAL SPINE WAS ORDERED. PHYSICAL THERAPY WAS STARTED AND PATIENT NOTICED IMPROVEMENT. DID SEE [facility] IN AUGUST 2018. THEY RECOMMENDED CONSERVATIVE CARE I.E. MASSAGE THERAPY AND PHYSICAL THERAPY AND IF NO IMPROVEMENT THEY WOULD CONSIDER SURGERY. COMPLAINS OF A DULL ACHE THAT IS CONSTANT AT THE BASE OF HER NECK. PAIN IS AGGRAVATED WITH RANGE OF JOINT MOTION OF THE NECK. REPORTS INTERMITTENT RADIATION INTO LEFT ARM AND HAND. PAIN HAS STAYED STABLE OVER THE PAST 2 YEARS. REVIEWED MRI OF THE CERVICAL SPINE DONE ON 04/27/2018. SHOWING SOME DISC PROTRUSION WITH CORD IMPINGEMENT AND LEFT NEURAL FORAMINAL NARROWING. DISCUSSED THERAPY OPTIONS TO INCLUDE PHYSICAL THERAPY AND CERVICAL EPIDURAL STEROID INJECTION. POTENTIAL RISKS AND BENEFITS WERE REVIEWED. DENIES URINARY OR BOWEL INCONTINENCE. DENIES SUDDEN WEIGHT LOSS OR ILLNESS.- - -. FALL RISK SCREENING: SCREENING :NO FALLS REPORTED IN THE LAST YEAR PAIN SCREENING: PATIENT HAS A COMPLAINT OF ACUTE OR CHRONIC PAIN :YES LOCATION OF PAIN:NECK LEFT SIDE MOSTLY, ALSO GOES DOWN RIGHT SIDE INTENSITY OF PAIN (SCALE OF 1 TO 10):5 WHAT DOES YOUR PAIN FEEL LIKE:ACHING PINS & NEEDLES IN LEFT ARM WHEN TURNING HEAD TO LEFT DURATION:CONSTANT, ALL DAY PAIN IS INCREASED BY:ACTIVITIES PROLONGED SITTING, TURNING HEAD PAIN IS DECREASED BY:OTHERS HEATING PAD, STRETCHING NURSING NOTE: - - -. PAIN CENTER INTAKE QUESTIONS: DO YOU HAVE A HISTORY OF MRSA? :NO DO YOU TAKE A BLOOD THINNERS? :NO DO YOU HAVE ANY BLEEDING DISORDERS? :NO ANY NEW NUMBNESS OR WEAKNESS IN YOUR LEGS OR ARMS? :NO PINS & NEEDLES DOWN LEFT ARM, REPORTS GOT BETTER WITH PHYSICAL THERAPY ANY PACEMAKER,DEFIBRILLATOR, OR DORSAL COLUMN STIMULATOR? :NO DO YOU HAVE ANY RASHES OR OPEN SORES? :NO ARE YOU ALLERGIC TO IV DYE? :NO ARE YOU DIABETIC? :NO ANY NEW PROBLEMS WITH YOUR MEDICATIONS? :NO HAVE YOU RECEIVED A VACCINE IN THE PAST 30 DAYS? :NO DO YOU PLAN TO RECEIVE A VACCINE IN THE NEXT 21 DAYS? :NO DO YOU NEED ANY PRESCRIPTION? :NO DO YOU TAKE ANY IMMUNOSUPPRESSIVE MEDICATIONS? :NO CURRENT MEDICATIONS TAKING IBUPROFEN 600 MG TABLET 1 TABLET WITH FOOD OR MILK NEEDED ORALLY THREE TIMES A DAY TAKING ZOLOFT 50 MG TABLET 1 TABLET ORALLY BEFORE BEDTIME TAKING BUPROPION HCL ER (SR) 150 MG TABLET EXTENDED RELEASE 12 HOUR 1 TABLET IN THE MORNING ORALLY ONCE A DAY NOT-TAKING HYDROXYZINE HCL 25 MG TABLET 1 TABLET NEEDED ORALLY EVERY 8 HRS MEDICATION LIST REVIEWED AND RECONCILED WITH THE PATIENT PAST MEDICAL HISTORY ANXIETY DEPRESSION BLOOD TRANSFUSION ( HEMORRHAGE; RETAINED PLACENTAS) ALLERGIES N.K.D.A. SURGICAL HISTORY D&C- PLACENTA FAMILY HISTORY FATHER: ALIVE, CVA MOTHER: ALIVE, HEALTHY 1 BROTHER(S) , 1 SISTER(S) - HEALTHY. DENIES KNOWN FAMILY HISTORY OF COLON CANCER; MATERNAL AUNT HAD BREAST CANCER. SOCIAL HISTORY GENERAL: TOBACCO USE ARE YOU A:NONSMOKER LATEX QUESTIONNAIRE LATEX ALLERGY : HAVE YOU EVER DEVELOPED ANY TYPE OF REACTION AFTER HANDLING LATEX PRODUCTS SUCH RUBBER GLOVES, CONDOMS, DIAPHRAGMS, BALLOONS, SOCKS, OR UNDERWEAR?NO LATEX ALLERGY : HAVE YOU EVER DEVELOPED ANY TYPE OF REACTION DURING OR AFTER DENTAL APPOINTMENT, VAGINAL/RECTAL EXAMINATION, SURGICAL PROCEDURE, OR ANY OTHER EXPOSURE?NO LATEX RISK : HAVE YOU EVER HAD ANY DIFFICULTY BREATHING OR HIVES AFTER EATING OR HANDLING ANY FRUITS, OR VEGETABLES; SUCH KIWI, BANANAS, STONE FRUITS, OR CHESTNUTSNO LATEX RISK : DO YOU HAVE A PREVIOUS PERSONAL HISTORY OF MORE THAN NINE SURGERIES, SPINA BIFIDA, OR REPEATED CATHERIZATIONS? NO LATEX RISK : ARE YOU FREQUENTLY EXPOSED TO LATEX PRODUCTS IN YOUR OCCUPATION?NO DATE ASKED : 05/04/2020 ALCOHOL USE: NO. ALCOHOL SCREENING DID YOU HAVE A DRINK CONTAINING ALCOHOL IN THE PAST YEAR?NO POINTS0 INTERPRETATIONNEGATIVE RECREATIONAL DRUG USE DRUG USE?NO CAFFEINE CAFFEINE USE?YES 3 BEVERAGES DAILY SEXUAL HX HAD SEX IN THE LAST 12 MONTHS (VAGINAL, ORAL, OR ANAL)?YES WITHMEN ONLY USE PROTECTION?NO LMP:10/18/18 HAVE YOU EVER HAD AN STD?NO HIV / HEP-C SCREENING HIV TEST OFFERED TO PATIENT:YES DATE OFFERED:03/03/2019 TEST ACCEPTED:NO HEP-C TEST OFFERED TO PATIENT:NO REASON:PATIENT DECLINED BROCHURE PROVIDED TO PATIENTNO ROMAN CATHOLIC [id number] NONE LANGUAGE LANGUAGES SPOKEN:URDU EDUCATION LEVEL OF EDUCATION:FINISHED [employer] LEARNING BARRIERS / SPECIAL NEEDS CHANGE FROM LAST VISIT?NO BARRIERS TO LEARNING?NO HEARING IMPAIRED?NO VISION IMPAIRED?NO COGNITIVELY IMPAIRED?NO READINESS TO LEARN?YES LEARNING PREFERENCES?NO LEARNING CAPABILITIES PRESENT?YES EMOTIONAL BARRIERS?NO SPECIAL DEVICES?NO HOT WALKER NEEDED?NO OCCUPATION: COMMUNITY DIRECTOR. DIET: REGULAR. EXERCISE: DAILY. MARITAL STATUS: . HOSPITALIZATION/MAJOR DIAGNOSTIC PROCEDURE CHILDBIRTH MISCARRIAGE TWINS, NEEDED D/C & BLOOD TRANSFUSIONS. 03/25 REVIEW OF SYSTEMS CONSTITUTIONAL: ANY RECENT FEVER NO . CHILLS NO . WEIGHT CHANGE OF UNKNOWN REASONS NO . MUSCULOSKELETAL: ANY UNUSUAL JOINT PAIN OR SWELLING NOT MENTIONED NO . SYSTEMIC LUPUS NO . ANY NEUROMUSCULAR DISORDER NOT MENTIONED NO . LYME DISEASE NO . GASTROENTEROLOGY: ANY NEW CHANGE IN BOWEL CONTROL? NO . HISTORY OF LIVER DISORDER NOT MENTIONED NO . HISTORY OF UNUSUAL ABDOMINAL PAIN OR CRAMPING NOT MENTIONED NO . NO CONSTIPATION. GENITOURINARY: ANY NEW CHANGE IN BLADDER CONTROL? NO . ANY RENAL/KIDNEY CONDITON NOT MENTIONED NO . NEUROLOGY: HISTORY OF TBI NOT MENTIONED NO . OTHER NEW NUMBNESS OR PAIN PATTERNS NOT MENTIONED NO . NEW ONSET DIZZINESS OR NEUROLOGICAL CHANGES NOT MENTIONED NO . HISTORY OF SEVERE HEADACHES NOT MENTIONED NO . HISTORY OF STROKE OR NEUROLOGICAL DISORDER NOT MENTIONED NO . CARDIOLOGY: HEART SURGERY NO . CONGESTIVE HEART FAILURE/FLUID OVERLOAD NOT MENTIONED NO . HISTORY OF CHEST PAIN,IRREGULAR HEART BEAT NOT MENTIONED NO . RESPIRATORY: SHORTNESS OF BREATH ON EXERTION, WHEEZES, UNUSUAL COUGH NOT MENTIONED NO . ENDOCRINOLOGY: ADRENAL GLAND OR THYROID DISORDERS NOT MENTIONED NO . UNUSUAL URINATION, DIZZINESS OR LETHARGY NOT MENTIONED NO . VITAL SIGNS WT 151.4 LBS, HT 67 IN, BMI 23.71 INDEX, BP 116/68 MM HG, HR 83 /MIN, RR 18 /MIN, TEMP 98 F, OXYGEN SAT % 99, SAFE IN ENV? (Y/N) YES, REVIEWED BY: APA. LORRAINE RN. EXAMINATION GENERAL EXAMINATION: GENERALNO ACUTE DISTRESS, WELL NOURISHED AND HYDRATED. PSYCHAPPROPRIATE MOOD AND AFFECT . FACE:UNREMARKABLE. NECK:NO LYMPHADENOPATHY, SUPPLE, . LUNGS:CLEAR TO AUSCULTATION BILATERALLY, NO WHEEZES, RHONCHI, RALES. HEART:NO MURMURS, REGULAR RATE AND RHYTHM. MUSCULOSKELETAL: MUSCLE STRENGTH TESTING 5/5 BILATERAL UPPER/LOWER EXTREMITIES. EQUAL STRONG COLLECTIONS MANAGER STRENGTH BILATERAL HANDS.. CERVICAL:RANGE OF JOINT MOTION PRODUCES INCREASE NECK PAIN AND LEFT ARM RADICULAR SYMPTOMS. NONTENDER WITH PALPATION OVER CERVICAL SPINE OR CERVICAL PARASPINALS . NEUROLOGIC EXAM:NORMAL SENSATION TO LIGHT TOUCH BILATERAL UPPER EXTREMITIES . DIAGNOSTIC TESTS REVIEWEDMRI CERVICAL SPINE 2019 . ASSESSMENTS PROTRUDED CERVICAL DISC - M50.20 (PRIMARY) CERVICAL RADICULOPATHY - M54.12 TREATMENT PROTRUDED CERVICAL DISC NOTES: CERVICAL EPIDURAL STEROID INJECTION C6-7,CERVICAL EPIDURAL STEROID INJECTION MATERIAL WAS PUBLISHED TO [employer] CALLED PATIENT AND REVIEWED PRE-PROCEDURE INSTRUCTIONS. PATIENT VERBALIZED AN UNDERSTANDING. INFORMED PATIENT THAT WE WOULD MAIL THE INSTRUCTIONS WELL INFORMATIONAL HANDOUT ON PROCEDURE TO HER ADDRESS. ADDRESS ON FILE CONFIRMED WITH PATIENT. Harjeet PETERS RN. REFERRAL TO:PHYSICAL THERAPIST REASON:RANGE OF MOTION,2XWK X 6 WKS,MASSAGE,STRETCHING,INTERFER. STIM PROCEDURE CODES FA211 ESTABILISHED PATIENT [facility] CHARGE DISPOSITION & COMMUNICATION FOLLOW UP POST PROCEDURE (REASON: CERVICAL EPIDURAL STEROID INJECTION C6-7/PT F/U) ELECTRONICALLY SIGNED BY DEBORAH MCDONALD ON 05/05/2020 AT 01:21 PM EST DISCLAIMER : THIS IS A VISIT SUMMARY EXTRACTED FROM THE [employer] CHART. IT IS NOT A COPY OF THE [employer] PROGRESS NOTE. KATRINA
== END ==
LOC: M PAIN 08:30
PROVIDERS: ATTEND Nurse Practitioner Family
DX: M50.20 Other cervical disc displacement, unspecified cervical region (principal); M54.12 Radiculopathy, cervical region; F41.9 Anxiety disorder, unspecified; F32.9 Major depressive disorder, single episode, unspecified; Z79.899 Other long term (current) drug therapy
CPT/HCPCS: 36415; 84439; 84443; G0463

== ENCOUNTER → 2020-05-04 | Outpatient (REF) | payer OTHER ==
[2020-05-04 15:57] LABS: FREE T4 0.78 NG/DL (0.76-1.46); THYROID STIMULATING HORMONE 0.987 uIU/ML (0.358-3.740)
== END ==
LOC: M PLALAB 14:57
PROVIDERS: ATTEND Physician Assistant Medical
DX: F41.9 Anxiety disorder, unspecified (principal)

== ENCOUNTER → 2020-05-30 | Outpatient (CLI) | payer OTHER | LOC: M LABSMTC 12:50 | PROVIDERS: ATTEND Pediatrics | DX: Z20.828 Contact with and (suspected) exposure to other viral communicable diseases (principal) | CPT/HCPCS: C9803; U0003 ==

== ENCOUNTER → 2020-06-29 | Outpatient (CLI) | payer SELFPAY | LOC: M LABSMTC 12:55 | PROVIDERS: ATTEND Pediatrics | DX: Z20.822 Contact with and (suspected) exposure to COVID-19 (principal) ==

== ENCOUNTER → 2020-06-29 | Outpatient (REF) | payer OTHER | LOC: M SFHCPLAZ 15:56 | PROVIDERS: ATTEND Physician Assistant Medical | DX: D70.9 Neutropenia, unspecified (principal); Z13.220 Encounter for screening for lipoid disorders ==

== ENCOUNTER → 2020-06-30 | Outpatient (CLI) | payer OTHER ==
[2020-06-30 10:47] LABS: BASO % 0.7 % (0.0-1.0); EOS % 0.9 % (0.0-3.0); HEMATOCRIT 39.9 % (36.0-47.0); HEMOGLOBIN 13.1 g/dl (12.0-15.5); LYMPH # 1.7 10^3/uL (1.5-5.0); LYMPH % 39.1 % (24.0-44.0); MEAN CORPUSCULAR HEMOGLOBIN 31.5 pg (27.0-33.0); MEAN CORPUSCULAR HGB CONC 32.8 g/dl (32.0-36.5); MEAN CORPUSCULAR VOLUME 95.9 fl (80.0-96.0); MONO # 0.4 10^3/uL (0.0-0.8); MONO % 9.9 % (2.0-8.0); NEUTROPHILS # 2.1 10^3/uL (1.5-8.5); NEUTROPHILS % 49.2 % (36.0-66.0); PLATELET COUNT, AUTOMATED 283 10^3/uL (150-450); RED BLOOD COUNT 4.16 10^6/uL (4.00-5.40); WHITE BLOOD COUNT 4.4 10^3/uL (4.0-10.0)
[2020-06-30 11:00] LABS: HEMOGLOBIN A1c 4.7 %
[2020-06-30 11:08] LABS: ALT/SGPT 17 U/L (12-78); BILIRUBIN,TOTAL 0.4 MG/DL (0.2-1.0); BLOOD UREA NITROGEN 13 MG/DL (7-18); CARBON DIOXIDE LEVEL 28 MEQ/L (21-32); CHLORIDE LEVEL 106 MEQ/L (98-107); CHOLESTEROL LEVEL 176 MG/DL (<200); CHOLESTEROL RISK RATIO 2.146 (<5); FERRITIN 47 NG/ML (8-252); GLOMERULAR FILTRATION RATE > 60.0 (>60); GLUCOSE, FASTING 89 MG/DL (70-100); HDL CHOLESTEROL 82 MG/DL (>40); LDL CHOLESTEROL 84 MG/DL (<100); NON-HDL-C 94 MG/DL; POTASSIUM SERUM 4.5 MEQ/L (3.5-5.1); SODIUM LEVEL 139 MEQ/L (136-145); TOTAL PROTEIN 6.9 GM/DL (6.4-8.2); TRIGLYCERIDES LEVEL 51 MG/DL (<150)
[2020-06-30 11:14] LABS: TOTAL 25(OH) VITAMIN D 51.7 NG/ML (30.0-100.0)
[2020-06-30 11:15] LABS: PTH INTACT 24.3 PG/ML (18.5-88.0); VITAMIN B12 LEVEL 351 PG/ML (247-911)
== END ==
LOC: M PLALAB 08:43
PROVIDERS: ATTEND Physician Assistant Medical
DX: D70.9 Neutropenia, unspecified (principal); Z13.220 Encounter for screening for lipoid disorders

== ENCOUNTER → 2020-07-25 | Outpatient (REF) | payer OTHER ==
[2020-07-25 14:19] LABS: HCG, SERUM QUALITATIVE POSITIVE (NEGATIVE)
[2020-07-25 14:39] LABS: HCG, SERUM QUANTITATIVE 59470 MIU/ML; PTH INTACT 19.1 PG/ML (18.5-88.0); TOTAL 25(OH) VITAMIN D 39.8 NG/ML (30.0-100.0)
== END ==
LOC: M PLALAB 09:14
PROVIDERS: ATTEND Physician Assistant Medical
DX: N92.6 Irregular menstruation, unspecified (principal); E55.9 Vitamin D deficiency, unspecified

== ENCOUNTER → 2020-07-31 | Outpatient (REF) | payer OTHER ==
[2020-07-31 15:38] LABS: HEMATOCRIT 36.2 % (36.0-47.0); HEMOGLOBIN 12.1 g/dl (12.0-15.5); MEAN CORPUSCULAR HEMOGLOBIN 31.2 pg (27.0-33.0); MEAN CORPUSCULAR HGB CONC 33.4 g/dl (32.0-36.5); MEAN CORPUSCULAR VOLUME 93.3 fl (80.0-96.0); PLATELET COUNT, AUTOMATED 285 10^3/uL (150-450); RED BLOOD COUNT 3.88 10^6/uL (4.00-5.40); WHITE BLOOD COUNT 6.1 10^3/uL (4.0-10.0)
[2020-07-31 16:57] LABS: HEPATITIS C VIRUS ABY INDEX < 0.0 INDEX (<0.8); HIV 1&2 SCREEN CENTAUR NEGATIVE (NEGATIVE)
[2020-07-31 17:46] LABS: CHLAMYDIA DNA AMPLIFICATION NEGATIVE (NEGATIVE); GC DNA AMPLIFICATION NEGATIVE (NEGATIVE)
== END ==
LOC: M PLALAB 12:52
PROVIDERS: ATTEND Obstetrics & Gynecology
DX: O99.341 Other mental disorders complicating pregnancy, first trimester (principal)

== ENCOUNTER → 2020-08-21 | Outpatient (CLI) | payer OTHER | LOC: M PLALAB 09:59 | PROVIDERS: ATTEND Obstetrics & Gynecology | DX: Z34.81 Encounter for supervision of other normal pregnancy, first trimester (principal) ==

== ENCOUNTER → 2020-09-06 | Outpatient (CLI) | payer OTHER ==
[~2020-09-06] MED LIST changes: +BUPR1TAB52 PO; +SERT50TA29 PO
== END ==
LOC: M LABSMTC 09:56
PROVIDERS: ATTEND Anesthesiology
DX: Z01.812 Encounter for preprocedural laboratory examination (principal)

== ENCOUNTER 2020-09-11 06:04 | Day surgery (SDC) | payer OTHER ==
[~2020-09-11] VITALS: Ht 170.2 cm; Wt 66.7 kg
[~2020-09-11 06:04] MED LIST changes: +LR 1,000 ML IV ONE
[2020-09-11 06:42] LABS: HEMOGLOBIN 11.8 g/dl (12.0-15.5); MEAN CORPUSCULAR HEMOGLOBIN 31.8 pg (27.0-33.0); MEAN CORPUSCULAR HGB CONC 33.7 g/dl (32.0-36.5); MEAN CORPUSCULAR VOLUME 94.3 fl (80.0-96.0); PLATELET COUNT, AUTOMATED 264 10^3/uL (150-450); RED BLOOD COUNT 3.71 10^6/uL (4.00-5.40); WHITE BLOOD COUNT 6.5 10^3/uL (4.0-10.0)
[2020-09-11] MEDS ORDERED: SILVER NITRATE APPLICATOR As Ordered ONE (07:09)
[2020-09-11] MEDS ORDERED: CHLOROPROCAINE PRES. FREE 3% 20ML VIAL As Ordered ONE (07:24)
--- NOTE | 2020-09-11 08:29 | ROOPDOC ---
[facility] Report Of Operation Report of Operation DATE OF PROCEDURE: 09/11/20 PREPROCEDURE DIAGNOSES: Cervical insufficiency, history of previable . Currently 14+ weeks EGA POSTPROCEDURE DIAGNOSES: same PROCEDURE: Martinez cerclage (history-indicated). SURGEON: Samuel Freeman DO FACOG INTER COM INSTALLER: none ANESTHESIA: Spinal COMPLICATIONS: None PREOPERATIVE ANTIBIOTIC: None indicated. ESTIMATED BLOOD LOSS: 20 mL IV FLUIDS: 1200 mL LR URINE OUTPUT: 75 mL (in and out catheter) FINDINGS: Martinez Cerclage knot at 12 o'clock (Prolene) at the level of the cervicovaginal junction. heart rate pre- and post- cerclage was 140- 150bpm. A limited bedside ultrasound was performed in the PACU, which revealed normal amniotic fluid volume, movement, and a normal heart rate. PROCEDURE: The patient was counseled and consented on risks, benefits, indications and alternatives of the procedure. Informed consent was obtained. She was taken to the operating room with an IV running. She was moved to the operating table where spinal anesthesia was administered without any difficulty. She was placed in the high lithotomy position. She was prepared and draped in the typical sterile fashion. A time out was performed per protocol. Attention was turned to the pelvis. The bladder was drained with in and out sterile catheter. A speculum was placed with good visualization of the cervix. Ring forceps were used at the anterior lip of the cervix to manipulate the cer vix. Using 1-Prolene suture, a pursestring stitch was placed around the cervix at the level of the cervicovaginal junction. The knot was tied near 12:00 position. Minimal bleeding from the cervix was noted. There was no evidence of ruptured membranes. Holding pressure against the friable ectropion with a sponge stick, the bleeding from the cervix ceased. All instruments were removed from the vagina. A sterile digital vaginal exam revealed a closed long cervix with less than a fingertip dilation (less than 1 cm). Sponge, needle and instrument counts were correct per protocol. She tolerated the entire procedure very well. She was transferred to the PACU in good and stable condition. DO ELEONORA Salazar JONATHAN R. DO Sep 11, 2020 08:29
[2020-09-11] MEDS ORDERED: INDO-16 PO (08:31)
[2020-09-11 10:30] VITALS: BP 110/69
== END 2020-09-11 10:33 | disposition home or self-care (01) ==
LOC: M SDC 06:04
PROVIDERS: ATTEND Obstetrics & Gynecology
DX: O34.32 Maternal care for cervical incompetence, second trimester (principal); Z3A.14 14 weeks gestation of pregnancy
CPT/HCPCS: 36415; 59320; 85027; 86850; 86900; 86901; J2400

== ENCOUNTER → 2020-10-13 | Outpatient (CLI) | payer OTHER ==
[~2020-10-13] MED LIST changes: +ACET-683 PO; +ACET-716 PO; +ACET500T15 PO; +COLA100C5 PO; +CYCL-707 PO; +IBUP-1022 PO; +INDO-16 PO; -LR 1,000 ML IV ONE; +PERCOCET PO
== END ==
LOC: M WHC 07:58
PROVIDERS: ATTEND Obstetrics & Gynecology
DX: O09.292 Supervision of pregnancy with other poor reproductive or obstetric history, second trimester (principal); Z3A.18 18 weeks gestation of pregnancy
CPT/HCPCS: 76811; 76817; 96372; J1729

== ENCOUNTER → 2020-11-28 | Outpatient (CLI) | payer OTHER ==
[~2020-11-28] MED LIST changes: -ACET-683 PO; -ACET-716 PO; -ACET500T15 PO; -COLA100C5 PO; -CYCL-707 PO; -IBUP-1022 PO; -PERCOCET PO
[2020-11-28 11:11] LABS: HEMATOCRIT 34.3 % (36.0-47.0); HEMOGLOBIN 11.4 g/dl (12.0-15.5); MEAN CORPUSCULAR HEMOGLOBIN 31.8 pg (27.0-33.0); MEAN CORPUSCULAR HGB CONC 33.2 g/dl (32.0-36.5); MEAN CORPUSCULAR VOLUME 95.5 fl (80.0-96.0); PLATELET COUNT, AUTOMATED 275 10^3/uL (150-450); RED BLOOD COUNT 3.59 10^6/uL (4.00-5.40); WHITE BLOOD COUNT 6.6 10^3/uL (4.0-10.0)
== END ==
LOC: M PLALAB 08:10
PROVIDERS: ATTEND Obstetrics & Gynecology
DX: O26.892 Other specified pregnancy related conditions, second trimester (principal); Z3A.00 Weeks of gestation of pregnancy not specified
CPT/HCPCS: 36415; 82950; 85027; 86850; 86900; 86901; G0463

== ENCOUNTER → 2021-01-23 | Outpatient (CLI) | payer OTHER ==
[2021-01-23 11:38] LABS: ALBUMIN 2.5 GM/DL (3.2-5.2); ALT/SGPT 16 U/L (12-78); BILIRUBIN,TOTAL 0.2 MG/DL (0.2-1.0); BLOOD UREA NITROGEN 8 MG/DL (7-18); CARBON DIOXIDE LEVEL 27 MEQ/L (21-32); CHLORIDE LEVEL 107 MEQ/L (98-107); CREATININE FOR GFR 0.53 MG/DL (0.55-1.30); GLOMERULAR FILTRATION RATE > 60.0 (>60); GLUCOSE, FASTING 101 MG/DL (70-100); POTASSIUM SERUM 4.2 MEQ/L (3.5-5.1); SODIUM LEVEL 139 MEQ/L (136-145); TOTAL PROTEIN 5.8 GM/DL (6.4-8.2)
== END ==
LOC: M PLALAB 09:05
PROVIDERS: ATTEND Obstetrics & Gynecology
DX: L29.9 Pruritus, unspecified (principal)

== ENCOUNTER → 2021-02-09 | Outpatient (REF) | payer OTHER ==
[~2021-02-09] MED LIST changes: +ACET-683 PO; +ACET-716 PO; +ACET500T15 PO; +COLA100C5 PO; +CYCL-707 PO; +IBUP-1022 PO; +PERCOCET PO
== END ==
LOC: M SFHCWAGY 16:51
PROVIDERS: ATTEND Obstetrics & Gynecology
DX: O09.293 Supervision of pregnancy with other poor reproductive or obstetric history, third trimester (principal)
CPT/HCPCS: 87081; G0463

== ENCOUNTER → 2021-02-10 | Outpatient (CLI) | payer OTHER ==
[~2021-02-10] MED LIST changes: -ACET-683 PO; -ACET-716 PO; -ACET500T15 PO; -COLA100C5 PO; -CYCL-707 PO; -IBUP-1022 PO; -PERCOCET PO
== END ==
LOC: M LABSMTC 10:26
PROVIDERS: ATTEND Anesthesiology
DX: Z01.812 Encounter for preprocedural laboratory examination (principal); Z20.822 Contact with and (suspected) exposure to COVID-19

== ENCOUNTER 2021-02-15 08:47 | Outpatient (CLI) | payer OTHER ==
[~2021-02-15] VITALS: Ht 170.2 cm; Wt 77.3 kg
[2021-02-15 09:14] VITALS: BP 133/96
[2021-02-15] MEDS ORDERED: LR 1,000 ML IV SCH (09:35)
[2021-02-15 09:45] VITALS: BP 122/86
[2021-02-15 09:58] LABS: HEMATOCRIT 37.2 % (36.0-47.0); HEMOGLOBIN 12.4 g/dl (12.0-15.5); MEAN CORPUSCULAR HEMOGLOBIN 31.2 pg (27.0-33.0); MEAN CORPUSCULAR HGB CONC 33.3 g/dl (32.0-36.5); MEAN CORPUSCULAR VOLUME 93.7 fl (80.0-96.0); PLATELET COUNT, AUTOMATED 224 10^3/uL (150-450); RED BLOOD COUNT 3.97 10^6/uL (4.00-5.40); WHITE BLOOD COUNT 7.4 10^3/uL (4.0-10.0)
--- NOTE | 2021-02-15 14:15 | ROOPDOC ---
[facility] Report Of Operation Report of Operation DATE OF PROCEDURE: 02/15/21 PREPROCEDURE DIAGNOSES: History of cervical insufficiency, embedded cerclage, 36+ weeks gestation POSTPROCEDURE DIAGNOSES: Same. PROCEDURE PERFORMED: Removal of embedded Martinez cerclage. SURGEON: Daysi Freeman DO FACOG CLINICAL OPERATIONS MANAGER: HARIS Carey ANESTHESIA: Spinal ESTIMATED BLOOD LOSS: Approximately 10 mL. COMPLICATIONS: none REMARKS: Entire cerclage removed FINDINGS: Embedded cerclage, knot at 12 o'clock DESCRIPTION OF PROCEDURE: Patient was counseled and consented on the risk benefits indications and alternatives of the planned procedure. Informed consent was obtained. She was taken to the operating room with an IV running. Spinal anesthesia was administered without any difficulty. A timeout was performed per protocol. She was prepared and draped in normal sterile fashion. She was placed in the high lithotomy position . The bladder was drained with a sterile in and out catheter. Sterile speculum was placed with good visualization of the cervix and the knot at 12:00 . The anterior lip of the cervix was grasped with a ring forcep and downward traction was applied. With another ring forcep the knot was grasped and elevated. The cerclage suture was exposed on tension, and the cerclage was successfully cut removing all of the suture material. Minimal bleeding was noted. No evidence of ruptured membranes during the procedure. After the cerclage was removed, sterile digital exam revealed 1 to 2 cm dilation 75% effacement and -3 station. heart tones at the conclusion of the case was 140 to 150 bpm. Patient tolerated the entire procedure very well she was transferred to the PACU in good stable condition. DO ERIC Salazar JONATHAN R. DO Feb 15, 2021 14:14
[2021-02-15 15:28] VITALS: BP 139/85
[2021-02-15] MEDS ORDERED: FIORICET TAB PO ONE (15:35)
[2021-02-15 15:44] VITALS: BP 137/77
--- NOTE | 2021-02-15 17:12 | IPNPDOC ---
Obstetrical Progress Note Date of Service Feb 15, 2021 Subjective Light pink spotting since cerclage removal, no painful contractions, no loss of fluid. +FM. Objective Vital Signs Date Time Temp Pulse Resp B/P (MAP) Pulse Ox O2 Delivery O2 Flow Rate FiO2 02/15/21 16:22 18 02/15/21 15:44 69 137/77 (97) 02/15/21 09:14 98.1 Assessment Heart Rate Tracing: Category I Tocometer Frequency: irregular (rare) Sterile Vaginal Examination Dilation: 1cm Effacement (%): 70% Station: -3 Cervical Consistency: Soft Cervical Position: Anterior Postion/Presentation: Cephalic presentation Assessment and Plan Additional Comments Reassuring maternal and status status post cerclage removal. No e/o active PTL or PPROM. Routine third TM precautions reviewed ; follow up in the office as scheduled (weekly PN appointments until delivery). DO ERIC Salazar JONATHAN R. DO Feb 15, 2021 17:12
== END 2021-02-15 17:25 | disposition home or self-care (01) ==
LOC: M LDO 08:47
PROVIDERS: ATTEND Obstetrics & Gynecology
DX: O34.33 Maternal care for cervical incompetence, third trimester (principal); Z3A.36 36 weeks gestation of pregnancy

== ENCOUNTER 2021-02-15 12:46 | Day surgery (SDC) | payer OTHER ==
[~2021-02-15] VITALS: Ht 170.2 cm; Wt 74.8 kg
[~2021-02-15 12:46] MED LIST changes: +LIDOCAINE 1% MDV 20ML VIAL SQ PRN; +LR 1,000 ML IV ONE
--- OUTSIDE RECORDS SUMMARY | 2021-02-15 12:57 | CCD ---
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 Active confirmed [id number] Problem Cervical cancer screening Z12.4 Active confirmed 066938814 Problem Encounter for immunization Z23 Active confirmed 059737841 Problem H/O twin in prior Z87.59 Ac tive confirmed 995705171 Problem Lipid screening Z13.220 Active confirmed 305 672842 Problem Neutropenia, unspecified type D70.9 Active confirm ed 278377393 Problem Supervision of other normal Z34.80 Ac tive confirm 534024748 Problem History of delivery Z87.51 Active confirmed 718793443 Problem Prior poor obstetrical history in second trimest er, antepartum O09.292 Active confirmed 106173207 Problem 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 Active confirmed 36392890477695 Problem Vitamin D deficiency E55.9 Active confirmed 11105923 Problem Late menses N92.6 Active confirmed 81078790 Problem Protruded cervical disc M50.20 Active confirmed 952443210 Problem Depression F32.9 Active confirmed 49226519 ALLERGIES No Known Allergies ENCOUNTERS from 1988 to 2021-01-16 Encounter Location Date Provider Diagnosis [facility] [address] [place] [address] [place] [address] Jan, Samuel Freeman Prior poor obstetric al history in second trimester, antepartum O09.292 ; 31 weeks gestation of Z3A.31 and Encounter for immunization Z23 IMMUNIZATIONS Vaccine Route Administration Date Status TDAP 0.5mL Boostrix IM Intramuscular Jan 09, 2021 Administere d Hydroxyprogesterone Caproate 250mg/ml [place] Subcutaneous Oct Administered Influenza 18 yrs & older Flublok IM Intramuscular Feb 22, 2020 Administered MMR 0.5mL SC Subcutaneous May 01, 2018 Administered Influenza 6mo & up Fluzone IM Intramuscular Jan 22, 2019 Admi nistered Influenza 6mo & up Fluzone IM Intramuscular Feb 19, 2018 Admi nistered DT Unknown Jan 31, 2011 Administered SOCIAL HISTORY Tobacco Use: Social History Observation Description Date Details (start date - stop date) Never Smoker Sex Assigned At : Social History Observation Description Sex Assigned At Unknown Education: Question Answer Notes Level of Education: [employer] Question Answer Notes Total Score: 2 Interpretation: Alcohol Education Language: Question Answer Notes Languages spoken: Turkish Buddhism: Question Answer Notes Buddhism 33 None Drug and Alcohol Question Answer Notes Total Score: 0 Interpretation: No problems reported Tobacco Use: Question Answer Notes Are you a: never smoker REASON FOR REFERRAL No Information VITAL SIGNS Weight 160 lbs Jan, Height 67 in Jan, BMI 25.06 kg/m2 Jan, Blood pressure systolic 108 mm Hg Jan, Blood pressure diastolic 62 mm Hg Jan, MEDICATIONS Medication SIG (Take, Route, Frequency, Duration) Notes Start Da te End Date Status Esgic 50-325-40 MG 1 capsule as needed Orally every 4 hrs Nov, Active Vitamin 27-0.8 MG 1 tablet Orally Once a day Active [place] 275 MG/1.1ML 1.1 ml Subcutaneous Active buPROPion HCl 75 MG 1 tab Orally Daily for 30 Days Not-Taking Ibuprofen 600 MG 1 tablet with food or milk a s needed Orally Three times a day for 7 day(s) Not-Taking buPROPion HCl ER (SR) 100 MG 1 tablet Orally Once a day for 90 d ay(s) May, Active Zoloft 50 MG Take 1 tablet by mouth before bedtime Orally Daily for 90 days Active PROCEDURES from 1988 to 2021-01-16 Procedure Date Ordered Result Body Site Imm: Boostrix 0.5mL IM TDAP 2021-01-09 N/A RESULTS No Results REASON FOR VISIT 2 WK PN PER ADRIANA MEDICAL (GENERAL) HISTORY Type Description Date Medical History anxiety Medical History depression Medical History blood transfusion ( hemorrhage ; retained placentas) Surgical History D&C- placenta Surgical History cervical cerclage placement 09/2020 Hospitalization History childbirth Hospitalization History Miscarriage twins, needed D/C & bloo d transfusions. 03/25 Goals Section No Information Health Concerns No Information MEDICAL EQUIPMENT No Information MENTAL STATUS No Information FUNCTIONAL STATUS No Information ASSESSMENTS Encounter Date Diagnosis Assessment Notes Treatment Notes Treatm ent Clinical Notes Jan, 31 weeks gestation of (ICD-10 - Z3A.31 ) Jan, Prior poor obstetrical histo ry in second trimester, antepartum (ICD-10 - O09.292) Jan, Encounter for immunization (ICD-10 - Z23) PLAN OF TREATMENT Next Appt Details Provider Name:Samuel Freeman, 01:00:00 PM, [address] [facility], , [place], [address], Insurance Providers Payer Name Payer Address Payer Phone Insured Name Patient Relati onship to Insured Coverage Start Date Coverage End Date [address] [phone] FOZIA COHEN self
--- OUTSIDE RECORDS SUMMARY | 2021-02-15 12:57 | CCD ---
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 Active confirmed 86330441343906103 Problem Cervical cancer screening Z12.4 Active confirmed 096231780 Problem Encounter for immunization Z23 Active confirmed 017172366 Problem H/O twin in prior Z87.59 Ac tive confirmed 211838991 Problem Lipid screening Z13.220 Active confirmed 305 066380 Problem Neutropenia, unspecified type D70.9 Active confirm ed 146345414 Problem Supervision of other normal Z34.80 Ac tive confirm 544555402 Problem History of delivery Z87.51 Active confirmed 707815110 Problem Prior poor obstetrical history in second trimest er, antepartum O09.292 Active confirmed 498671424 Problem 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 Active confirmed 98612433003468 Problem Vitamin D deficiency E55.9 Active confirmed 52590737 Problem Late menses N92.6 Active confirmed 67250276 Problem Protruded cervical disc M50.20 Active confirmed 806350973 Problem Depression F32.9 Active confirmed 36407498 ALLERGIES No Known Allergies ENCOUNTERS from 1988 to 2021-01-29 Encounter Location Date Provider Diagnosis [facility] [address] [place] [address] [place] [address] Jan, Samuel Freeman Prior poor obstetric al history in third trimester, antepartum O09.293 ; 33 weeks gestation of Z3A.33 and Encounter for immunization Z23 IMMUNIZATIONS Vaccine Route Administration Date Status TDAP 0.5mL Boostrix IM Intramuscular Jan 09, 2021 Administere d Hydroxyprogesterone Caproate 250mg/ml [place] Subcutaneous Oct Administered Influenza 18 yrs & older Flublok IM Intramuscular Feb 22, 2020 Administered MMR 0.5mL SC Subcutaneous May 01, 2018 Administered Influenza 6mo & up Fluzone IM Intramuscular Jan 26, 2021 Admi nistered Influenza 6mo & up Fluzone [...] Education Language: Question Answer Notes Languages spoken: Hebrew Sabianist: Question Answer Notes Sabianist 33 None Drug and Alcohol Question Answer Notes Total Score: 0 Interpretation: No problems reported Tobacco Use: Question Answer Notes Are you a: never smoker REASON FOR REFERRAL No Information VITAL SIGNS Weight 162 lbs Jan, Height 67 in Jan, BMI 25.373 kg/m2 Jan, Blood pressure systolic 102 mm Hg Jan, Blood pressure diastolic 64 mm Hg Jan, MEDICATIONS Medication SIG (Take, Route, Frequency, Duration) Notes Start Da te End Date Status Zoloft 50 MG Take 1 tablet by mouth before bedtime Orally Daily for 90 days Active buPROPion HCl 75 MG 1 tab Orally Daily for 30 Days Not-Taking Esgic 50-325-40 MG 1 capsule as needed Orally every 4 hrs Nov, Not-Taking buPROPion HCl ER (SR) 100 MG 1 tablet Orally Once a day for 90 d ay(s) May, Active Vitamin 27-0.8 MG 1 tablet Orally Once a day Active [place] 275 MG/1.1ML 1.1 ml Subcutaneous Not-Taking Ibuprofen 600 MG 1 tablet with food or milk a s needed Orally Three times a day for 7 day(s) Not-Taking PROCEDURES from 1988 to 2021-01-29 Procedure Date Ordered Result Body Site Imm: Fluzone 6mo & older 0.5mL IM Influenza 2021-01-26 N/A RESULTS No Results REASON FOR VISIT 2 wk pn MEDICAL (GENERAL) HISTORY Type Description Date Medical [...] Treatment Notes Treatm ent Clinical Notes Jan, Prior poor obstetrical histo ry in third trimester, antepartum (ICD- 10 - O09.293) Jan, 33 weeks gestation of (ICD-10 - Z3A.33 ) Jan, Encounter for immunization (ICD-10 - Z23) PLAN OF TREATMENT Next Appt Details 2 Weeks Reason:COB (Lydia) Provider Name:Samuel Freeman, 07:30:00 AM, [address] [facility], , [place], [address], Follow Up:2 WeeksCOB (Lydia) Insurance Providers Payer Name Payer Address Payer Phone Insured Name Patient Relati onship to Insured Coverage Start Date Coverage End Date [place] [id number] [phone] FOZIA COHEN self
--- OUTSIDE RECORDS SUMMARY | 2021-02-15 12:57 | CCD ---
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 Active confirmed 41859113839877109 Problem Cervical cancer screening Z12.4 Active confirmed 690949893 Problem Encounter for immunization Z23 Active confirmed 930885398 Problem H/O twin in prior Z87.59 Ac tive confirmed 024339072 Problem Lipid screening Z13.220 Active confirmed 305 020409 Problem Neutropenia, unspecified type D70.9 Active confirm ed 228520195 Problem Supervision of other normal Z34.80 Ac tive confirm 512803494 Problem History of delivery Z87.51 Active confirmed 497898307 Problem Prior poor obstetrical history in second trimest er, antepartum O09.292 Active confirmed 783352038 Problem 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 Active confirmed 70883725745050 Problem Vitamin D deficiency E55.9 Active confirmed 14209219 Problem Late menses N92.6 Active confirmed 67339881 Problem Protruded cervical disc M50.20 Active confirmed 709629642 Problem Depression F32.9 Active confirmed 62556232 ALLERGIES No Known Allergies ENCOUNTERS from 1988 to 2021-01-02 Encounter Location Date Provider Diagnosis [facility] [address] [place] [address] [place] [address] Dec, Samuel Freeman IMMUNIZATIONS Vaccine Route Administration Date Status Hydroxyprogesterone Caproate 250mg/ml [place] Subcutaneous Oct [...] Education Language: Question Answer Notes Languages spoken: Zambian Hoahaoism: Question Answer Notes Hoahaoism 33 None Drug and Alcohol Question Answer Notes Total Score: 0 Interpretation: No problems reported Tobacco Use: Question Answer Notes Are you a: never smoker REASON FOR REFERRAL No Information VITAL SIGNS No information MEDICATIONS Medication SIG (Take, Route, Frequency, Duration) Notes Start Da te End Date Status buPROPion HCl ER (SR) 100 MG 1 tablet Orally Once a day for 90 d ay(s) May, Active Esgic 50-325-40 MG 1 capsule as needed Orally every 4 hrs Nov, Active buPROPion HCl 75 MG 1 tab Orally Daily for 30 Days Not-Taking Zoloft 50 MG Take 1 tablet by mouth before bedtime Orally Daily for 90 days Active Vitamin 27-0.8 MG 1 tablet Orally Once a day Active [place] 275 MG/1.1ML 1.1 ml Subcutaneous Active Ibuprofen 600 MG 1 tablet with food or milk a s needed Orally Three times a day for 7 day(s) Not-Taking PROCEDURES No Information RESULTS No Results REASON FOR VISIT Itching since esthela shot MEDICAL (GENERAL) HISTORY Type Description Date Medical [...] No Information FUNCTIONAL STATUS No Information ASSESSMENTS No Information PLAN OF TREATMENT Next Appt Details Provider Name:Samuel Freeman, 02:20:00 PM, [address] [facility], , [place], [address], Insurance Providers Payer Name Payer Address Payer Phone Insured Name Patient Relati onship to Insured Coverage Start Date Coverage End Date [place] [phone] [phone] FOZIA COHEN self
--- OUTSIDE RECORDS SUMMARY | 2021-02-15 12:57 | CCD ---
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 Active confirmed 10771368538107746 Problem Cervical cancer screening Z12.4 Active confirmed 464219156 Problem Encounter for immunization Z23 Active confirmed 969477110 Problem H/O twin in prior Z87.59 Ac tive confirmed 514278412 Problem Lipid screening Z13.220 Active confirmed 305 448581 Problem Neutropenia, unspecified type D70.9 Active confirm ed 453670577 Problem Supervision of other normal Z34.80 Ac tive confirm 032508070 Problem History of delivery Z87.51 Active confirmed 825252651 Problem Prior poor obstetrical history in second trimest er, antepartum O09.292 Active confirmed 039776671 Problem 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 Active confirmed 03605645873554 Problem Vitamin D deficiency E55.9 Active confirmed 82584986 Problem Late menses N92.6 Active confirmed 51094201 Problem Protruded cervical disc M50.20 Active confirmed 369973105 Problem Depression F32.9 Active confirmed 11156347 ALLERGIES No Known Allergies ENCOUNTERS from 1988 to 2020-11-30 Encounter Location Date Provider Diagnosis [facility] [address] [place] [address] [place] [address] Nov, Samuel Freeman Cervical insufficien cy during in second trimester, antepartum O34.32 ; Prior poor obstetrical history in second trimester, antepartum O09.292 and 25 weeks gestation of Z3A.25 IMMUNIZATIONS Vaccine Route Administration Date Status Hydroxyprogesterone Caproate 250mg/ml [place] Subcutaneous Oct Administered Influenza 18 yrs [...] Education Language: Question Answer Notes Languages spoken: Polish Denominational: Question Answer Notes Denominational 33 None Drug and Alcohol Question Answer Notes Total Score: 0 Interpretation: No problems reported Tobacco Use: Question Answer Notes Are you a: never smoker REASON FOR REFERRAL No Information VITAL SIGNS Weight 154 lbs Nov, Height 67 in Nov, BMI 24.12 kg/m2 Nov, Blood pressure systolic 102 mm Hg Nov, Blood pressure diastolic 60 mm Hg Nov, MEDICATIONS Medication SIG (Take, Route, Frequency, Duration) Notes Start Da te End Date Status Vitamin 27-0.8 MG 1 tablet Orally Once a day Active [place] 275 MG/1.1ML 1.1 ml Subcutaneous Active Esgic 50-325-40 MG 1 capsule as needed Orally every 4 hrs Nov, Active buPROPion HCl ER (SR) 100 MG 1 tablet Orally Once a day for 90 d ay(s) May, Active Ibuprofen 600 MG 1 tablet with food or milk a s needed Orally Three times a day for 7 day(s) Not-Taking Zoloft 50 MG Take 1 tablet by mouth before bedtime Orally Daily for 90 days Active buPROPion HCl 75 MG 1 tab Orally Daily for 30 Days Not-Taking PROCEDURES No Information RESULTS No Results REASON FOR VISIT 3 WK PN MEDICAL (GENERAL) HISTORY Type Description Date Medical [...] Notes Treatment Notes Treatm ent Clinical Notes Nov, Cervical insufficiency durin g in second trimester, antepartum (ICD-10 - O34.32) Nov, Prior poor obstetrical histo ry in second trimester, antepartum (ICD-10 - O09.292) Nov, 25 weeks gestation of (ICD-10 - Z3A.25 ) PLAN OF TREATMENT Next Appt Details 3 Weeks Reason:- Complicated OB follow up johnathan Freeman Provider Name:Samuel Freeman, 10:20:00 AM, [address] [facility], , [place], [address], Follow Up:3 Weeks- Complicated OB follow up johnathan Freeman Insurance Providers Payer Name Payer Address Payer Phone Insured Name Patient Relati onship to Insured Coverage Start Date Coverage End Date [address] [phone] FOZIA COHEN self
--- OUTSIDE RECORDS SUMMARY | 2021-02-15 12:57 | CCD ---
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 Active confirmed 06725778328193729 Problem Cervical cancer screening Z12.4 Active confirmed 700511149 Problem Encounter for immunization Z23 Active confirmed 565698953 Problem H/O twin in prior Z87.59 Ac tive confirmed 213789474 Problem Lipid screening Z13.220 Active confirmed 305 827653 Problem Neutropenia, unspecified type D70.9 Active confirm ed 306753050 Problem Supervision of other normal Z34.80 Ac tive confirm 946424683 Problem History of delivery Z87.51 Active confirmed 536281868 Problem Prior poor obstetrical history in second trimest er, antepartum O09.292 Active confirmed 517575777 Problem 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 Active confirmed 10485564531562 Problem Vitamin D deficiency E55.9 Active confirmed 23572500 Problem Late menses N92.6 Active confirmed 54803564 Problem Protruded cervical disc M50.20 Active confirmed 036383768 Problem Depression F32.9 Active confirmed 27365285 ALLERGIES No Known Allergies ENCOUNTERS from 1988 to 2020-11-26 Encounter Location Date Provider Diagnosis [facility] Breast Care [address] [place] [address] [place] [address] Nov, Samuel Reyes Other specified preg kadeem related conditions, second trimester O26.892 ; Headache, unspecified R51.9 ; Cervical insufficiency during in second trimester, antepartum O34.32 and 22 weeks gestation of Z3A.22 IMMUNIZATIONS Vaccine Route Administration Date Status Hydroxyprogesterone [...] Education Language: Question Answer Notes Languages spoken: Venezuelan Mandaeism: Question Answer Notes Mandaeism 33 None Drug and Alcohol Question Answer Notes Total Score: 0 Interpretation: No problems reported Tobacco Use: Question Answer Notes Are you a: never smoker REASON FOR REFERRAL No Information VITAL SIGNS Weight 153 lbs Nov, Height 67 in Nov, BMI 23.963 kg/m2 Nov, Blood pressure systolic 118 mm Hg Nov, Blood pressure diastolic 74 mm Hg Nov, MEDICATIONS Medication SIG (Take, Route, Frequency, Duration) Notes Start Da te End Date Status Ibuprofen 600 MG 1 tablet with food or milk a s needed Orally Three times a day for 7 day(s) Not-Taking Esgic 50-325-40 MG 1 capsule as needed Orally every 4 hrs Nov, Active buPROPion HCl ER (SR) 100 MG 1 tablet Orally Once a day for 90 d ay(s) May, Active Vitamin 27-0.8 MG 1 tablet Orally Once a day Active buPROPion HCl 75 MG 1 tab Orally Daily for 30 Days Not-Taking Zoloft 50 MG Take 1 tablet by mouth before bedtime Orally Daily for 90 days Active [place] 275 MG/1.1ML 1.1 ml Subcutaneous Active PROCEDURES No Information RESULTS No Results REASON FOR VISIT [address] REYES ONLY MEDICAL (GENERAL) HISTORY Type Description Date Medical [...] Treatment Notes Treatm ent Clinical Notes Nov, Other specified re lated conditions, second trimester (ICD-10 - O26.892) Nov, Headache, unspecified (ICD-10 - R51.9) Nov, Cervical insufficiency durin g in second trimester, antepartum (ICD-10 - O34.32) Nov, 22 weeks gestation of (ICD-10 - Z3A.22 ) PLAN OF TREATMENT Medication Medication Name Sig Start Date Stop Date Esgic 50-325-40 MG 1 capsule as needed Orally every 4 hrs Nov Treatment Notes Test Name Order Date CBC - Complete Blood Count 2020-11-10 Type and Screen (D Rh Antibody Screen) 2020-11-10 Glucose Challenge Test 1 Hour 2020-11-10 Next Appt Details 2-4 weeks Reason: Provider Name:Samuel Reyes, 08:20:00 AM, [address] [place] [address] , [place], [address], Provider Name:Cindy Chavez, 01:30:00 PM, [address] [place] [address] , [place], [address], Insurance Providers Payer Name Payer Address Payer Phone Insured Name Patient Relati onship to Insured Coverage Start Date Coverage End Date [place] [phone] FOZIA COHEN self
--- OUTSIDE RECORDS SUMMARY | 2021-02-15 12:57 | CCD ---
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 Active confirmed 46247440559825312 Problem Cervical cancer screening Z12.4 Active confirmed 554050596 Problem Encounter for immunization Z23 Active confirmed 025184395 Problem H/O twin in prior Z87.59 Ac tive confirmed 381476979 Problem Lipid screening Z13.220 Active confirmed 305 771650 Problem Neutropenia, unspecified type D70.9 Active confirm ed 490962114 Problem Supervision of other normal Z34.80 Ac tive confirm 010023527 Problem History of delivery Z87.51 Active confirmed 206176717 Problem Prior poor obstetrical history in second trimest er, antepartum O09.292 Active confirmed 376581201 Problem 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 Active confirmed 47464542525115 Problem Vitamin D deficiency E55.9 Active confirmed 67964580 Problem Late menses N92.6 Active confirmed 19957092 Problem Protruded cervical disc M50.20 Active confirmed 534628603 Problem Depression F32.9 Active confirmed 59088711 ALLERGIES No Known Allergies ENCOUNTERS from 1988 to 2020-12-15 Encounter Location Date Provider Diagnosis [facility] [address] [place] [address] [place] [address] Dec, Samuel Freeman IMMUNIZATIONS Vaccine Route Administration [...] Education Language: Question Answer Notes Languages spoken: Grenadian Uatsdin: Question Answer Notes Uatsdin 33 None Drug and Alcohol Question Answer Notes Total Score: 0 Interpretation: No problems reported Tobacco Use: Question Answer Notes Are you a: never smoker REASON FOR REFERRAL No Information VITAL SIGNS No information MEDICATIONS Medication SIG (Take, Route, Frequency, Duration) Notes Start Da te End Date Status Vitamin 27-0.8 MG 1 tablet Orally Once a day Active [place] 275 MG/1.1ML 1.1 ml Subcutaneous Active Esgic [...] Information RESULTS No Results REASON FOR VISIT tightening MEDICAL (GENERAL) HISTORY Type Description Date Medical [...] TREATMENT Next Appt Details Provider Name:Samuel Freeman, 10:20:00 AM, [address] [facility], , [place], [address], Insurance Providers Payer Name Payer Address Payer Phone Insured Name Patient Relati onship to Insured Coverage Start Date Coverage End Date [place] [id number] [phone] FOZIA COHEN self
--- OUTSIDE RECORDS SUMMARY | 2021-02-15 12:57 | CCD ---
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 Active confirmed 46275710063370468 Problem Cervical cancer screening Z12.4 Active confirmed 674077983 Problem Encounter for immunization Z23 Active confirmed 554253674 Problem H/O twin in prior Z87.59 Ac tive confirmed 593423757 Problem Lipid screening Z13.220 Active confirmed 305 052098 Problem Neutropenia, unspecified type D70.9 Active confirm ed 132602059 Problem Supervision of other normal Z34.80 Ac tive confirm 535814372 Problem History of delivery Z87.51 Active confirmed 861850083 Problem Prior poor obstetrical history in second trimest er, antepartum O09.292 Active confirmed 003479846 Problem 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 Active confirmed 53179306727917 Problem Vitamin D deficiency E55.9 Active confirmed 78825325 Problem Late menses N92.6 Active confirmed 73017878 Problem Protruded cervical disc M50.20 Active confirmed 242997961 Problem Depression F32.9 Active confirmed 82536238 ALLERGIES No Known Allergies ENCOUNTERS from 1988 to 2020-12-26 Encounter Location Date Provider Diagnosis [facility] [address] [place] [address] [place] [address] Dec, Samuel Freeman IMMUNIZATIONS Vaccine Route Administration [...] Education Language: Question Answer Notes Languages spoken: Honduran Mormon: Question Answer Notes Mormon 33 None Drug and Alcohol Question Answer [...] 1 tablet Orally Once a day Active [place] 275 MG/1.1ML 1.1 ml Subcutaneous Active Ibuprofen 600 MG 1 tablet with food or milk a s needed Orally Three times a day for 7 day(s) Not-Taking PROCEDURES No Information RESULTS No Results REASON FOR VISIT NEEDS 2WK PN MEDICAL (GENERAL) HISTORY Type Description Date [...] TREATMENT Next Appt Details Provider Name:Samuel Freeman, 2021-01- 02:20:00 PM, [address] [facility], , [place], [address], Insurance Providers Payer Name Payer Address Payer Phone Insured Name Patient Relati onship to Insured Coverage Start Date Coverage End Date [place] [phone] [phone] FOZIA COHEN self
--- OUTSIDE RECORDS SUMMARY | 2021-02-15 12:57 | CCD ---
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 Active confirmed 98541336431282251 Problem Cervical cancer screening Z12.4 Active confirmed 026727401 Problem Encounter for immunization Z23 Active confirmed 213683555 Problem H/O twin in prior Z87.59 Ac tive confirmed 228851536 Problem Lipid screening Z13.220 Active confirmed 305 008742 Problem Neutropenia, unspecified type D70.9 Active confirm ed 210990238 Problem Supervision of other normal Z34.80 Ac tive confirm 655890402 Problem History of delivery Z87.51 Active confirmed 859897882 Problem Prior poor obstetrical history in second trimest er, antepartum O09.292 Active confirmed 273366636 Problem 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 Active confirmed 50856877922745 Problem Vitamin D deficiency E55.9 Active confirmed 05413460 Problem Late menses N92.6 Active confirmed 94812223 Problem Protruded cervical disc M50.20 Active confirmed 816468753 Problem Depression F32.9 Active confirmed 10379590 ALLERGIES No Known Allergies ENCOUNTERS from 1988 to 2020-12-07 Encounter Location Date Provider Diagnosis [facility] [address] [place] [address] [place] [address] Dec, Samuelkadeem Freeman IMMUNIZATIONS Vaccine Route Administration Date Status [...] Education Language: Question Answer Notes Languages spoken: Eritrean Nondenominational: Question Answer Notes Nondenominational 33 None Drug and Alcohol Question Answer Notes Total Score: 0 Interpretation: No problems reported Tobacco Use: Question Answer Notes Are you a: never smoker REASON FOR REFERRAL No Information VITAL SIGNS No information MEDICATIONS Medication SIG (Take, Route, Frequency, Duration) Notes Start Da te End Date Status Vitamin 27-0.8 MG 1 tablet Orally Once a day Active [place] 275 MG/1.1ML 1.1 ml Subcutaneous Active Esgic [...] Information RESULTS No Results REASON FOR VISIT Covid vaccine MEDICAL (GENERAL) HISTORY Type Description Date Medical [...] Details Provider Name:Samuel Freeman, 10:20:00 AM, [address] [facility], , [place], [address], Insurance Providers Payer Name Payer Address Payer Phone Insured Name Patient Relati onship to Insured Coverage Start Date Coverage End Date [place] [phone] FOZIA COHEN self
--- OUTSIDE RECORDS SUMMARY | 2021-02-15 12:57 | CCD ---
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 Active confirmed 41479946127498797 Problem Cervical cancer screening Z12.4 Active confirmed 004544747 Problem Encounter for immunization Z23 Active confirmed 771856997 Problem H/O twin in prior Z87.59 Ac tive confirmed 713982362 Problem Lipid screening Z13.220 Active confirmed 305 794915 Problem Neutropenia, unspecified type D70.9 Active confirm ed 164003304 Problem Supervision of other normal Z34.80 Ac tive confirm 718256960 Problem History of delivery Z87.51 Active confirmed 514178277 Problem Prior poor obstetrical history in second trimest er, antepartum O09.292 Active confirmed 941635969 Problem 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 Active confirmed 12908897088716 Problem Vitamin D deficiency E55.9 Active confirmed 63398501 Problem Late menses N92.6 Active confirmed 63918621 Problem Protruded cervical disc M50.20 Active confirmed 765628344 Problem Depression F32.9 Active confirmed 24844753 ALLERGIES No Known Allergies ENCOUNTERS from 1988 to 2021-01-30 Encounter Location Date Provider Diagnosis [facility] [address] [place] [address] [place] [address] Jan, Samuel Freeman IMMUNIZATIONS Vaccine Route Administration Date Status TDAP [...] Education Language: Question Answer Notes Languages spoken: Russian Mu-Ism: Question Answer Notes Mu-Ism 33 None Drug and Alcohol Question Answer [...] 1 tablet Orally Once a day Active [place] 275 MG/1.1ML 1.1 ml Subcutaneous Not-Taking Ibuprofen 600 MG 1 tablet with food or milk a s needed Orally Three times a day for 7 day(s) Not-Taking PROCEDURES No Information RESULTS No Results REASON FOR VISIT decreased FM MEDICAL (GENERAL) HISTORY Type Description Date Medical [...] TREATMENT Next Appt Details Provider Name:Samuel Freeman, 07:30:00 AM, [address] [facility], , [place], [address], Insurance Providers Payer Name Payer Address Payer Phone Insured Name Patient Relati onship to Insured Coverage Start Date Coverage End Date [address] [phone] FOZIA COHEN self
--- OUTSIDE RECORDS SUMMARY | 2021-02-15 12:57 | CCD ---
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 Active confirmed 83554414722027349 Problem Cervical cancer screening Z12.4 Active confirmed 909139358 Problem Encounter for immunization Z23 Active confirmed 607980640 Problem H/O twin in prior Z87.59 Ac tive confirmed 011839615 Problem Lipid screening Z13.220 Active confirmed 305 864790 Problem Neutropenia, unspecified type D70.9 Active confirm ed 547770854 Problem Supervision of other normal Z34.80 Ac tive confirm 798105646 Problem History of delivery Z87.51 Active confirmed 322706771 Problem Prior poor obstetrical history in second trimest er, antepartum O09.292 Active confirmed 235963039 Problem 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 Active confirmed 48916666547980 Problem Vitamin D deficiency E55.9 Active confirmed 87350546 Problem Late menses N92.6 Active confirmed 77326188 Problem Protruded cervical disc M50.20 Active confirmed 768377148 Problem Depression F32.9 Active confirmed 27749138 ALLERGIES No Known Allergies ENCOUNTERS from 1988 to 2021-01-23 Encounter Location Date Provider Diagnosis [facility] [address] [place] [address] [place] [address] Jan, Hannah Meraz IMMUNIZATIONS Vaccine Route Administration Date Status TDAP 0.5mL Boostrix IM Intramuscular Jan 09, 2021 Administere d Hydroxyprogesterone Caproate 250mg/ml [place] Subcutaneous Oct Administered Influenza 18 yrs [...] Education Language: Question Answer Notes Languages spoken: Northern Irish Worship: Question Answer Notes Worship 33 None Drug and Alcohol Question Answer [...] 1 tablet Orally Once a day Active [place] 275 MG/1.1ML 1.1 ml Subcutaneous Active buPROPion [...] Orally Daily for 90 days Active PROCEDURES No Information RESULTS No Results REASON FOR VISIT Itching MEDICAL (GENERAL) HISTORY Type Description Date Medical [...] Details Provider Name:Samuel Freeman, 01:00:00 PM, [address] [facility], , [place], [address], Insurance Providers Payer Name Payer Address Payer Phone Insured Name Patient Relati onship to Insured Coverage Start Date Coverage End Date [place] [phone] FOZIA COHEN self
--- OUTSIDE RECORDS SUMMARY | 2021-02-15 12:57 | CCD ---
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 Active confirmed 25274005498131736 Problem Cervical cancer screening Z12.4 Active confirmed 013315451 Problem Encounter for immunization Z23 Active confirmed 562270925 Problem H/O twin in prior Z87.59 Ac tive confirmed 680917737 Problem Lipid screening Z13.220 Active confirmed 305 637700 Problem Neutropenia, unspecified type D70.9 Active confirm ed 566234309 Problem Supervision of other normal Z34.80 Ac tive confirm 562994157 Problem History of delivery Z87.51 Active confirmed 557002631 Problem Prior poor obstetrical history in second trimest er, antepartum O09.292 Active confirmed 006119587 Problem 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 Active confirmed 29387974720568 Problem Vitamin D deficiency E55.9 Active confirmed 44892700 Problem Late menses N92.6 Active confirmed 02272584 Problem Protruded cervical disc M50.20 Active confirmed 862713093 Problem Depression F32.9 Active confirmed 56159870 ALLERGIES No Known Allergies ENCOUNTERS from 1988 to 2020-11-29 Encounter Location Date Provider Diagnosis [facility] [address] [place] [address] [place] [address] Nov, Samuel Freeman IMMUNIZATIONS Vaccine Route Administration Date [...] Education Language: Question Answer Notes Languages spoken: Peruvian Caodaism: Question Answer Notes Caodaism 33 None Drug and Alcohol Question Answer Notes Total Score: 0 Interpretation: No problems reported Tobacco Use: Question Answer Notes Are you a: never smoker REASON FOR REFERRAL No Information VITAL SIGNS No information MEDICATIONS Medication SIG (Take, Route, Frequency, Duration) Notes Start Da te End Date Status Vitamin 27-0.8 MG 1 tablet Orally Once a day Active [place] 275 MG/1.1ML 1.1 ml Subcutaneous Active Esgic [...] Information RESULTS No Results REASON FOR VISIT Iron MEDICAL (GENERAL) HISTORY Type Description Date Medical [...] PLAN OF TREATMENT Next Appt Details Provider Name:Cindy Garayshameka, 01:30:00 PM, [address] [facility], , [place], [address], Provider Name:Samuel Freeman, 10:20:00 AM, [address] [place] [address], , [place], [address], Insurance Providers Payer Name Payer Address Payer Phone Insured Name Patient Relati onship to Insured Coverage Start Date Coverage End Date [address] [phone] FOZIA COHEN self
[2021-02-15] MEDS ORDERED: SILVER NITRATE APPLICATOR As Ordered ONE (13:23)
[2021-02-15] MEDS ORDERED: LIDOCAINE 2% 100MG/5ML SDV (FOR ANES.) As Ordered ONE (13:39)
[2021-02-15] MEDS ORDERED: CHLOROPROCAINE PRES. FREE 2% 20ML VIAL As Ordered ONE (13:39)
[2021-02-15] MEDS ORDERED: fentaNYL 100 MCG/2 ML INJECTION (J3010) As Ordered ONE (13:39)
[2021-02-15] MEDS ORDERED: propofoL 200 MG/20 ML VIAL As Ordered ONE (13:39)
[2021-02-15] MEDS ORDERED: GLYCOPYRROLATE INJ 0.2 MG/ML 2 ML VIAL As Ordered ONE (13:53)
[2021-02-15] MEDS ORDERED: ATROPINE SULF 0.4 MG/ML 1ML VIAL (J0461) As Ordered ONE (13:55)
[2021-02-15] MEDS ORDERED: ePHEDrine SULFATE 25 MG/5 ML(5MG/ML) SYRINGE As Ordered ONE (14:03)
--- NOTE | 2021-02-15 14:16 | ROOPDOC ---
[facility] Report Of Operation Report of Operation DATE OF PROCEDURE: 02/15/21 (Two records created for the same visit) PREPROCEDURE DIAGNOSES: History of cervical insufficiency, embedded cerclage, 36+ weeks gestation POSTPROCEDURE DIAGNOSES: Same. PROCEDURE PERFORMED: Removal of embedded [place] cerclage. SURGEON: Daysi Freeman DO FACOG TYRE RETREADER: HARIS Carey ANESTHESIA: Spinal ESTIMATED BLOOD LOSS: Approximately 10 mL. COMPLICATIONS: none REMARKS: Entire cerclage removed FINDINGS: Embedded cerclage, knot at 12 o'clock DESCRIPTION OF PROCEDURE: Patient was counseled and consented on the risk benefits indications and alternatives of the planned procedure. Informed consent was obtained. She was taken to the operating room with an IV running. Spinal anesthesia was administered without any difficulty. A timeout was performed per protocol. She was prepared and draped in normal sterile fashion. She was placed in the high lithotomy position . The bladder was drained with a sterile in and out catheter. Sterile speculum was placed with good visualization of the cervix and the knot at 12:00 . The anterior lip of the cervix was grasped with a ring forcep and downward traction was applied. With another ring forcep the knot was grasped and elevated. The cerclage suture was exposed on tension, and the cerclage was successfully cut removing all of the suture material. Minimal bleeding was noted. No evidence of ruptured membranes during the procedure. After the cerclage was removed, sterile digital exam revealed 1 to 2 cm dilation 75% effacement and -3 station. heart tones at the conclusion of the case was 140 to 150 bpm. Patient tolerated the entire procedure very well she was transferred to the PACU in good stable condition. DO ERIC Salazar JONATHAN R. DO OLIVA, JONATHAN R. DO Feb 15, 2021 14:16
[2021-02-15 15:05] VITALS: BP 173/86
[2021-02-15] MEDS ORDERED: oxyCODONE 5MG TAB PO PRN (15:15)
[2021-02-15] MEDS ORDERED: LR 1,000 ML IV SCH (15:15)
[2021-02-15] MEDS ORDERED: METOCLOPRAMIDE INJ 10MG/2ML VIAL (J2765 PER 1) IV PRN (15:15)
[2021-02-15] MEDS ORDERED: ONDANSETRON 4MG/2ML VIAL IV PRN (15:15)
[2021-02-15] MEDS ORDERED: fentaNYL 100 MCG/2 ML INJECTION (J3010) IV PRN (15:15)
== END 2021-02-15 15:00 | disposition home or self-care (01) ==
LOC: M SDC 12:46
PROVIDERS: ATTEND Obstetrics & Gynecology
DX: O34.33 Maternal care for cervical incompetence, third trimester (principal); Z3A.36 36 weeks gestation of pregnancy
CPT/HCPCS: 59025; 59320; 76815; 85027; 86850; 86900; 86901; J0461; J2400; J3010; U0002

== ENCOUNTER 2021-02-20 09:12 | Outpatient (CLI) | payer OTHER ==
[~2021-02-20] VITALS: Ht 170.2 cm; Wt 79.1 kg
[2021-02-20] VITALS (10 sets, daily range): BP systolic 125–146; BP diastolic 77–92
[~2021-02-20 09:12] MED LIST changes: -LIDOCAINE 1% MDV 20ML VIAL SQ PRN; -LR 1,000 ML IV ONE
[2021-02-20] MEDS ORDERED: ACET-716 PO (09:45)
[2021-02-20] MEDS ORDERED: HOME MED LIST COMPLETE! XX SCH (09:50)
[2021-02-20] MEDS ORDERED: FIORICET TAB PO PRN (10:15)
[2021-02-20] MEDS: LR 1,000 ML IV SCH ×2 (10:43→18:06)
[2021-02-20 11:18] LABS: HEMATOCRIT 34.3 % (36.0-47.0); HEMOGLOBIN 11.6 g/dl (12.0-15.5); MEAN CORPUSCULAR HEMOGLOBIN 31.5 pg (27.0-33.0); MEAN CORPUSCULAR HGB CONC 33.8 g/dl (32.0-36.5); MEAN CORPUSCULAR VOLUME 93.2 fl (80.0-96.0); PLATELET COUNT, AUTOMATED 217 10^3/uL (150-450); RED BLOOD COUNT 3.68 10^6/uL (4.00-5.40); WHITE BLOOD COUNT 8.1 10^3/uL (4.0-10.0)
[2021-02-20] MEDS ORDERED: CYCLOBENZAPRINE 10MG TABLET PO ONE (12:00)
[2021-02-20] MEDS ORDERED: MORPHINE 10 MG/ML 1ML VIAL (J2270) IV PRN (15:55)
[2021-02-20] MEDS: PERCOCET 5MG/325MG TAB PO PRN (19:46)
[2021-02-20] MEDS: MORPHINE 10 MG/ML 1ML VIAL (J2270) IV PRN ×2 (20:56→23:54)
--- NOTE | 2021-02-20 22:14 | HPEPDOC ---
Obstetrical History & Physical General Date of Admission History of Present Illness 30yo at 37+ weeks presents with persistent neck pain and mild MCKEON x 4-5 days. Neck pain favors left side and provoked by rotation and flexion / extension. MCKEON is mild and located along occipital region. Denies MCKEON that worsens with positional change (ie. from laying to sitting/standing). MCKEON/neck pain has been present since her cerclage removal procedure on 02/15/21. She used Esgic yesterday to help with pain, and that offered some relief but did not take away the pain. On 02/20/21, she decided to present to [facility] triage for evaluation / treatment. Of note, she has a history of bulging disc in her cervical spine years ago, it was managed conservatively, and this pain is somewhat similar (but described as worse than she experienced in the past). No visual changes, sob, cp. Denies fever/chills Reports regular FM. Denies VB/LOF/uctx. PMH: depression/anxiety, migraines, h/o cervical disc disease SH: cerclage (removed), D&C/retained placenta OB: G1, 19+ week of twin demise (cervical insufficiency/PPROM/PTB/IAI and c/b retained PPH/retained placenta) BUTADIENE CONVERTER OPERATOR: No STI Meds: PNV, Esgic, Wellbutrin, and Zoloft All: NKDA VSS/normotensive, normal HR, afebrile. Gen: A&O x 4. Neuro: no deficits H: RRR no m/g/r L: CTA b/l no w/c/r/r Abd: soft,nt,nd,uterine fundal ht c/w/d, no fundal tenderness Ext: no c/c/e, no NMS deficits all 4 ext. EFM: Cat 1 [place]: BH, no ctx pattern See labs A/P: 30yo at 37+ weeks EGA. Neck pain/mild MCKEON, most likely musculoskeletal etiology. No clinical e/o pre-eclampsia. No e/o infection or meningitis. -Admit to OBS status for IV hydration and pain control -Intermittent monitoring Daysi Freeman DO Past Medical History Allergies Coded Allergies: No Known Allergies (Unverified , 02/20/21) NKA Medications Scheduled Bupropion HCl (Bupropion HCl Sr) 100 Mg Tab.sr.12h, 100 MG PO DAILY No.137/Iron/Folic Acd ( Vitamin Tablet) 1 Each Tablet, 1 TAB PO DAILY Sertraline HCl (Sertraline HCl) 50 Mg Tablet, 50 MG PO DAILY Miscellaneous Medications Acetaminophen with Codeine (Acetaminophen-Cod #3 Tablet) 1 Each Tablet, 1 TAB PO Physical Examination Physical Examination GENERAL: Alert and oriented times three. BREAST: . ABDOMEN: Gravid and non-tender to touch. FETUS: Is vertex (VTX) by sterile vaginal examination (SVE), fetus is vertex ( VTX) by William. HEART RATE: Regular rate and rhythm. LUNGS: Clear to auscultation (CTA). EXTREMITIES: No edema. No clonus. Deep tendon reflexes (DTRs) + . Vital Signs/I&O Vital Signs Date Time Temp Pulse Resp B/P (MAP) Pulse Ox O2 Delivery O2 Flow Rate FiO2 02/20/21 21:06 16 02/20/21 20:56 98.0 72 146/85 (105) 02/20/21 20:56 Room Air 02/20/21 19:10 99 Laboratory Data 24H LABS Laboratory Tests 2 02/20/21 10:49: Nucleated Red Blood Cells % (auto) 0.0 CBC/BMP Laboratory Tests 02/20/21 10:49 Assessment/Plan Assessment is a -year-old (G) para (P)--- at + weeks by -week ultrasound. Presents to Labor and Delivery (L&D) . Plan Admit and orient. Continuous Improvement Intern and consent. Diet: . Group B Streptococcus (GBS) [negative]. Labs and intravenous (IV) per unit protocol. Counseled on Pitocin and induction of labor (IOL). Lactated Ringers (LR): Bolus mL, then at mL/hr. Anticipate [normal spontaneous delivery ()]. C-S as appropriate. ASHLEY FREEMAN DO Feb 20, 2021 22:14
[2021-02-21] VITALS (11 sets, daily range): BP systolic 110–144; BP diastolic 65–92
[2021-02-21] MEDS: LR 1,000 ML IV SCH ×3 (01:57→18:15)
[2021-02-21] MEDS: PERCOCET 5MG/325MG TAB PO PRN ×2 (02:03→17:09)
[2021-02-21] MEDS: MORPHINE 10 MG/ML 1ML VIAL (J2270) IV PRN ×2 (03:16→07:15)
[2021-02-21 07:18] LABS: CREATININE,RANDOM URINE 23.1 MG/DL; TOTAL PROTEIN,RANDOM URINE < 5.0 MG/DL (0.0-12.0)
[2021-02-21] MEDS ORDERED: PROMETHAZINE INJ 25 MG/ML VIAL (J2550) IV ONE (08:20)
[2021-02-21 08:46] LABS: HEMATOCRIT 33.6 % (36.0-47.0); MEAN CORPUSCULAR HEMOGLOBIN 31.2 pg (27.0-33.0); MEAN CORPUSCULAR HGB CONC 32.7 g/dl (32.0-36.5); MEAN CORPUSCULAR VOLUME 95.2 fl (80.0-96.0); PLATELET COUNT, AUTOMATED 198 10^3/uL (150-450); RED BLOOD COUNT 3.53 10^6/uL (4.00-5.40); WHITE BLOOD COUNT 7.8 10^3/uL (4.0-10.0)
[2021-02-21] MEDS ORDERED: BUTORPHANOL 2 MG/ML INJ (J0595) IV ONE (09:00)
[2021-02-21] MEDS ORDERED: buPROPion (WELLBUTRIN SR) 100 MG SR TAB PO SCH (09:00)
[2021-02-21] MEDS ORDERED: SERTRALINE HCL 50 MG TAB PO SCH ×2 (09:00→21:00)
[2021-02-21 09:11] LABS: ALBUMIN 2.2 GM/DL (3.2-5.2); ALT/SGPT 14 U/L (12-78); BILIRUBIN,TOTAL 0.3 MG/DL (0.2-1.0); BLOOD UREA NITROGEN 6 MG/DL (7-18); CALCIUM LEVEL 8.3 MG/DL (8.5-10.1); CARBON DIOXIDE LEVEL 26 MEQ/L (21-32); CHLORIDE LEVEL 107 MEQ/L (98-107); CREATININE FOR GFR 0.56 MG/DL (0.55-1.30); GLOMERULAR FILTRATION RATE > 60.0 (>60); GLUCOSE, FASTING 87 MG/DL (70-100); LDH LACTATE DEHYDROGENASE 163 U/L (84-246); POTASSIUM SERUM 3.9 MEQ/L (3.5-5.1); SODIUM LEVEL 138 MEQ/L (136-145); TOTAL PROTEIN 5.4 GM/DL (6.4-8.2); URIC ACID 4.2 MG/DL (2.6-6.0)
[2021-02-21] MEDS ORDERED: SUMAtriptan SUCCINATE 25 MG TAB PO ONE (10:00)
--- NOTE | 2021-02-21 15:49 | REPVR ---
PROCEDURE INFORMATION: Exam: MR Cervical Spine Without Contrast Exam date and time: 02/21/2021 3:33 PM Age: 30 years old Clinical indication: Neck pain TECHNIQUE: Imaging protocol: Multiplanar magnetic resonance images of the cervical spine without contrast. COMPARISON: MRI-Spine,Cervical without con 04/27/2018 4:24 PM FINDINGS: Vertebrae: There is reversal the normal cervical lordosis. Spinal cord: There is no abnormal signal in the cervical spinal cord. Discs/Spinal canal/Neural foramina: Increased signal is seen in the margins of the C4-C5, C5-C6 and C6-C7 discs possibly due to annular tears. These were also seen on the 04/27/2018 MRI. At the C6-C7 level there is a diffusely bulging annulus and possible disc herniation narrowing the ventral spinal canal however does not appear to cause cord compression but there is mild deformity in the left ventrolateral aspect of the cord. There is mild narrowing of the left neural foramen. There is mild stenosis of the cervical spinal canal with AP dimension of 8.7 mm. There is no further spinal canal stenosis or neural foraminal narrowing in the cervical spine. Vasculature: Expected flow voids in the vertebral arteries. Soft tissues: Unremarkable IMPRESSION: There is a central/left paracentral disc herniation at the C6-C7 level with mild narrowing of the left neural foramen which could affect the left C7 nerve root. The disc herniation has decreased in size in comparison to the 04/27/2018 MRI. There is minimal deformity of the left ventral aspect of the cord which appeared to be mildly compressed at time of prior imaging. No new or acute findings. Electronically signed by: Amanda Maher On 02/21/2021 15:49:05 PM
[2021-02-21] MEDS ORDERED: CYCLOBENZAPRINE 10MG TABLET PO ONE (17:25)
[2021-02-21] MEDS ORDERED: CYCL-707 PO (22:46)
[2021-02-21] MEDS ORDERED: PERCOCET PO (22:46)
--- NOTE | 2021-02-21 22:58 | IPNPDOC ---
Text Note Date of Service The patient was seen on 02/21/21. NOTE Subjective: Multiple medications and treatments used to help patient. This morning she reported her pain a 9/10 or 10/10. Given a dose of Imitrex for possible atypical migraine. Also given Stadol and Phenergan, which worked well and she fell asleep. She was able to get OOB and shower. MRI was ordered and done today and normal. The pain did come back and we alternated ice and heat to help and tried a dose of Percocet and Flexeril. She reported improvement in pain and range of motion in her neck. She stated pain was a 4/10 only with movement and experienced no pain when she wasn't moving her neck. Objective: VS, labs and MRI: see below FHR: 120, moderate variability, positive accelerations, no decelerations. [place]: occasional General: Alert and oriented. Sitting up in bed. Respiratory: regular rate without any use of accessory muscles. Abdomen: soft and not tender with palpation Musculoskeletal: Range of motion of neck has greatly improved. Assessment: IUP at 37.2 weeks gestation, severe left sided musculoskeletal neck pain after spinal Plan: Patient discharged to home. She knows to call [facility] physical therapy tomorrow and get in to see them. If PT needs script we will provide it for them. Plan to do Flexeril three times a day for 24 to 48 hours with extra strength Tylenol every 8 hours or Percocet for breakthrough pain. She reports she is doing much better and wants to go home at this time. Reviewed access to care, kick count, labor signs and danger signs to report. VS,Gine, I+O VS, Gine, I+O Laboratory Tests 02/21/21 08:24 Vital Signs Date Time Temp Pulse Resp B/P (MAP) Pulse Ox O2 Delivery O2 Flow Rate FiO2 02/21/21 18:10 16 02/21/21 17:37 72 126/82 (97) 02/21/21 15:35 98.1 02/21/21 03:26 Room Air 02/20/21 19:10 99 Vital Signs Label Value Date Time Patient Temperature 98.3 degrees F 02/21/212045 Pulse 70 02/21/212045 Blood Pressure Assessment 125/79 (94) 02/21/212045 Source Automatic Cuff (NIBP) I&O- Last 24 Hours up to 6 AM 02/21/21 06:00 Intake Total 1262.5 ml Balance 1262.5 ml NAME: FOZIA COHEN DATE OF : 1990 BUSINESS NUMBER: [id number] AGE: 30 SEX: F REPORT #: [id number] ROOM: [facility] TECHNOLOGIST[facility] DOCTOR: ASHLEY REYES DO Ordered for Date&Time: 02/21/21 0746 cc: [~ rep ct ivnm] Service Date&Time: 02/21/21 1533 EXAMINATION REQUESTED: MRI-Spine,Cervical without con REASON FOR PATIENT VISIT: HEADACHE REASON FOR EXAMINATION: neck pain PROCEDURE INFORMATION: Exam: MR Cervical Spine Without Contrast Exam date and time: 02/21/2021 3:33 PM Age: 30 years old Clinical indication: Neck pain TECHNIQUE: Imaging protocol: Multiplanar magnetic resonance images of the cervical spine without contrast. COMPARISON: MRI-Spine,Cervical without con 04/27/2018 4:24 PM FINDINGS: Vertebrae: There is reversal the normal cervical lordosis. Spinal cord: There is no abnormal signal in the cervical spinal cord. Discs/Spinal canal/Neural foramina: Increased signal is seen in the margins of the C4-C5, C5-C6 and C6-C7 discs possibly due to annular tears. These were also seen on the 04/27/2018 MRI. At the C6-C7 level there is a diffusely bulging annulus and possible disc herniation narrowing the ventral spinal canal however does not appear to cause cord compression but there is mild deformity in the left ventrolateral aspect of the cord. There is mild narrowing of the left neural foramen. There is mild stenosis of the cervical spinal canal with AP dimension of 8.7 mm. There is no further spinal canal stenosis or neural foraminal narrowing in the cervical spine. Vasculature: Expected flow voids in the vertebral arteries. Soft tissues: Unremarkable IMPRESSION: There is a central/left paracentral disc herniation at the C6-C7 level with mild narrowing of the left neural foramen which could affect the left C7 nerve root. The disc herniation has decreased in size in comparison to the 04/27/2018 MRI. There is minimal deformity of the left ventral aspect of the cord which appeared to be mildly compressed at time of prior imaging. No new or acute findings. Electronically signed by: Louis Maher On 02/21/2021 15:49:05 PM DD: LOUIS MAHER MD 02/21/21 1533 DT: FABIO 02/21/21 1549 DS: SALVADOR 02/21/21 1549 WINSOME KOWALSKI CNM Feb 21, 2021 22:58
[2021-02-22] MEDS ORDERED: ACET500T15 PO (13:04)
== END 2021-02-21 22:53 | disposition home or self-care (01) ==
LOC: M LDO 09:12
PROVIDERS: ATTEND Obstetrics & Gynecology
DX: O26.893 Other specified pregnancy related conditions, third trimester (principal); O99.891 Other specified diseases and conditions complicating pregnancy; R51.9 Headache, unspecified; M54.2 Cervicalgia; Z3A.37 37 weeks gestation of pregnancy
CPT/HCPCS: 59025; 72141; 80053; 82570; 83615; 84156; 84550; 85027; 96360; 96361; 96374; 96375; 96376; G0378; G0463; J0595; J2270; U0002

== ENCOUNTER 2021-02-22 06:23 | Inpatient (IN) | payer OTHER ==
[~2021-02-22] VITALS: Ht 170.2 cm; Wt 79.1 kg
[2021-02-22] VITALS (37 sets, daily range): BP systolic 106–166; BP diastolic 63–97
[~2021-02-22 06:23] MED LIST changes: +ACET-716 PO; +CYCL-707 PO; +PERCOCET PO
--- OUTSIDE RECORDS SUMMARY | 2021-02-22 11:31 | CCD ---
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 Active confirmed 09058117561662899 Problem Cervical cancer screening Z12.4 Active confirmed 138170686 Problem Encounter for immunization Z23 Active confirmed 370685520 Problem H/O twin in prior Z87.59 Ac tive confirmed 950543732 Problem Lipid screening Z13.220 Active confirmed 305 128875 Problem Neutropenia, unspecified type D70.9 Active confirm ed 525744412 Problem Supervision of other normal Z34.80 Ac tive confirm 758590543 Problem History of delivery Z87.51 Active confirmed 549407128 Problem Prior poor obstetrical history in second trimest er, antepartum O09.292 Active confirmed 229707077 Problem 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 Active confirmed 92748720448289 Problem Vitamin D deficiency E55.9 Active confirmed 46092738 Problem Late menses N92.6 Active confirmed 75246819 Problem Protruded cervical disc M50.20 Active confirmed 530295051 Problem Depression F32.9 Active confirmed 10610932 ALLERGIES No Known Allergies ENCOUNTERS from 1988 to 2021-02-20 Encounter Location Date Provider Diagnosis [facility] [address] [place] [address] [place] [address] Feb, Samuel Freeman Prior poor obstetric al history in third trimester, antepartum O09.293 ; Headache R51.9 and 37 weeks gestation of Z3A.37 IMMUNIZATIONS Vaccine Route Administration Date Status TDAP 0.5mL Boostrix IM Intramuscular Jan 09, 2021 Administere d Influenza 18 yrs & older Flublok IM [...] Education Language: Question Answer Notes Languages spoken: Tanzanian Spiritism: Question Answer Notes Spiritism 33 None Drug and Alcohol Question Answer Notes Total Score: 0 Interpretation: No problems reported Tobacco Use: Question Answer Notes Are you a: never smoker REASON FOR REFERRAL No Information VITAL SIGNS Weight 170 lbs Feb, Weight-kg 77.11 kg Feb, Height 67 in Feb, BMI 26.626 kg/m2 Feb, Blood pressure systolic 108 mm Hg Feb, Blood pressure diastolic 70 mm Hg Feb, MEDICATIONS Medication SIG (Take, Route, Frequency, Duration) [...] times a day for 7 day(s) Not-Taking Vitamin 27-0.8 MG 1 tablet Orally Once a day Active [place] 275 MG/1.1ML 1.1 ml Subcutaneous Not-Taking buPROPion HCl 75 MG 1 tab Orally Daily for 30 Days Not-Taking Otzraebyks-XPSE-Qgtlqgif 50-325-40 MG 2 capsule as needed Orally every 4 hrs Feb, Active Zoloft 50 MG Take 1 tablet by mouth before bedtime Orally Daily for 90 days Active PROCEDURES No Information RESULTS No Results REASON FOR VISIT 1 wk pn per richard MEDICAL (GENERAL) HISTORY Type Description Date Medical [...] Notes Treatment Notes Treatm ent Clinical Notes Feb, Prior poor obstetrical histo ry in third trimester, antepartum (ICD- 10 - O09.293) Feb, Headache (ICD-10 - R51.9) Feb, 37 weeks gestation of (ICD-10 - Z3A.37 ) PLAN OF TREATMENT Medication Medication Name Sig Start Date Stop Date Obafyntmwm-OFKT-Dnwwvvmt 50-325-40 MG 2 capsule as needed Or ally every 4 hrs Feb, Next Appt Details 1 Week Reason:PN Provider Name:Samuel Freeman, 08:20:00 AM, [address] [place], [place] [id number], [place], [address], Provider Name:Samuel Freeman, 07:30:00 AM, [address] [place] [phone], [place], [address], Follow Up:1 WeekPN Insurance Providers Payer Name Payer Address Payer Phone Insured Name Patient Relati onship to Insured Coverage Start Date Coverage End Date [place] [phone] FOZIA COHEN self
--- OUTSIDE RECORDS SUMMARY | 2021-02-22 11:31 | CCD ---
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 Active confirmed 35067313227091715 Problem Cervical cancer screening Z12.4 Active confirmed 471183769 Problem Encounter for immunization Z23 Active confirmed 521204836 Problem H/O twin in prior Z87.59 Ac tive confirmed 199911948 Problem Lipid screening Z13.220 Active confirmed 305 612181 Problem Neutropenia, unspecified type D70.9 Active confirm ed 643427613 Problem Supervision of other normal Z34.80 Ac tive confirm 516311339 Problem History of delivery Z87.51 Active confirmed 862635234 Problem Prior poor obstetrical history in second trimest er, antepartum O09.292 Active confirmed 762681102 Problem 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 Active confirmed 42238202748241 Problem Vitamin D deficiency E55.9 Active confirmed 23770334 Problem Late menses N92.6 Active confirmed 22750092 Problem Protruded cervical disc M50.20 Active confirmed 172189060 Problem Depression F32.9 Active confirmed 84062491 ALLERGIES No Known Allergies ENCOUNTERS from 1988 to 2021-02-16 Encounter Location Date Provider Diagnosis [facility] [address] [place] [address] [place] [address] Feb, Samuel Freeman Prior poor obstetric al history in third trimester, antepartum O09.293 and 35 weeks gestation of Z3A.35 IMMUNIZATIONS Vaccine Route Administration Date Status TDAP [...] Education Language: Question Answer Notes Languages spoken: Danish Mandaen: Question Answer Notes Mandaen 33 None Drug and Alcohol Question Answer Notes Total Score: 0 Interpretation: No problems reported Tobacco Use: Question Answer Notes Are you a: never smoker REASON FOR REFERRAL No Information VITAL SIGNS Weight 169 lbs Feb, Height 67 in Feb, BMI 26.469 kg/m2 Feb, Blood pressure systolic 122 mm Hg Feb, Blood pressure diastolic 70 mm Hg Feb, MEDICATIONS Medication SIG (Take, Route, Frequency, Duration) Notes Start Da te End Date Status buPROPion HCl ER (SR) 100 MG 1 tablet Orally Once a day for 90 d ay(s) May, Active [place]hel[place] 275 MG/1.1ML 1.1 ml Subcutaneous Not-Taking buPROPion HCl 75 MG 1 tab Orally Daily for 30 Days Not-Taking Vitamin 27-0.8 MG 1 tablet Orally Once a day Active Zoloft 50 MG Take 1 tablet by mouth before bedtime Orally Daily for 90 days Active Ibuprofen 600 MG 1 tablet with food or milk a s needed Orally Three times a day for 7 day(s) Not-Taking Esgic 50-325-40 MG 1 capsule as needed Orally every 4 hrs Nov, Not-Taking PROCEDURES No Information RESULTS Component Value Reference Range GROUP B STREP CULTURE Reviewed date:02/13/2021 13:49:17 Interpretation: Performing Lab:[facility], [facility] [address] [facility] [id number] , ,[place] [address] REASON FOR VISIT 2 WK PN MEDICAL (GENERAL) HISTORY Type Description [...] trimester, antepartum (ICD- 10 - O09.293) Feb, 35 weeks gestation of (ICD-10 - Z3A.35 ) PLAN OF TREATMENT Next Appt Details 1 Week Reason:- Complicated OB follow up Provider Name:Samuel Freeman, 07:30:00 AM, [address] [place] [phone], [place], [address], Provider Name:Samuel Freeman, 08:20:00 AM, [address] [place], [place] [phone], [place], [address], Provider Name:Samuel Freeman, 07:30:00 AM, [address] [place] [phone], [place], [address], Follow Up:1 Week- Complicated OB follow up Insurance Providers Payer Name Payer Address Payer Phone Insured Name Patient Relati onship to Insured Coverage Start Date Coverage End Date [place] [id number] [phone] FOZIA COHEN self
--- OUTSIDE RECORDS SUMMARY | 2021-02-22 11:31 | CCD ---
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 Active confirmed 31305981295865701 Problem Cervical cancer screening Z12.4 Active confirmed 171679431 Problem Encounter for immunization Z23 Active confirmed 484924794 Problem H/O twin in prior Z87.59 Ac tive confirmed 489013364 Problem Lipid screening Z13.220 Active confirmed 305 697658 Problem Neutropenia, unspecified type D70.9 Active confirm ed 963383564 Problem Supervision of other normal Z34.80 Ac tive confirm 832887077 Problem History of delivery Z87.51 Active confirmed 555002982 Problem Prior poor obstetrical history in second trimest er, antepartum O09.292 Active confirmed 923325576 Problem 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 Active confirmed 74766519879768 Problem Vitamin D deficiency E55.9 Active confirmed 46405267 Problem Late menses N92.6 Active confirmed 83116402 Problem Protruded cervical disc M50.20 Active confirmed 521181347 Problem Depression F32.9 Active confirmed 25512705 ALLERGIES No Known Allergies ENCOUNTERS from 1988 to 2021-01-05 Encounter Location Date Provider Diagnosis [facility] [address] [place] [address] [place] [address] Dec, Samuel Freeman Prior poor obstetric al history in third trimester, antepartum O09.293 ; History of delivery, currently in third trimester O09.893 and 29 weeks gestation of Z3A.29 IMMUNIZATIONS Vaccine Route Administration Date Status Hydroxyprogesterone [...] Education Language: Question Answer Notes Languages spoken: Serbian Worship: Question Answer Notes Worship 33 None Drug and Alcohol Question Answer Notes Total Score: 0 Interpretation: No problems reported Tobacco Use: Question Answer Notes Are you a: never smoker REASON FOR REFERRAL No Information VITAL SIGNS Weight 158 lbs Dec, Weight-kg 71.67 kg Dec, Height 67 in Dec, BMI 24.746 kg/m2 Dec, Blood pressure systolic 108 mm Hg Dec, Blood pressure diastolic 64 mm Hg Dec, MEDICATIONS Medication SIG (Take, Route, Frequency, Duration) [...] Esthela 275 MG/1.1ML 1.1 ml Subcutaneous Active Ibuprofen 600 MG 1 tablet with food or milk a s needed Orally Three times a day for 7 day(s) Not-Taking PROCEDURES No Information RESULTS No Results REASON FOR VISIT 4 WK PN MEDICAL (GENERAL) HISTORY Type Description [...] Notes Treatment Notes Treatm ent Clinical Notes Dec, Prior poor obstetrical histo ry in third trimester, antepartum (ICD- 10 - O09.293) Dec, History of delivery, currently in third trimester (ICD-10 - O09.893) Dec, 29 weeks gestation of (ICD-10 - Z3A.29 ) PLAN OF TREATMENT Next Appt Details 2 Weeks Reason:- Complicated OB follow up Provider Name:Samuel Freeman, 02:20:00 PM, [address] [facility], , [place], [address], Follow Up:2 Weeks- Complicated OB follow up Insurance Providers Payer Name Payer Address Payer Phone Insured Name Patient Relati onship to Insured Coverage Start Date Coverage End Date [address] [phone] FOZIA COHEN self
--- OUTSIDE RECORDS SUMMARY | 2021-02-22 11:33 | CCD ---
Author Author [facility] Organization [facility] Address Unknown Phone Unavailable Support Name Relationship Address Phone YOUSSEF ASSIST Next Of Kin [address], [place] [id number] Crono Next Of Kin [address] [id number] ALICE BECKER Next Of Kin [address] [place] [address] [place] [address] ALICE BECKER ECON [address] [place] [address] [place] [address] Unavailable Re-disclosure Warning The records that you are about to access may contain information from federally-assisted alcohol or drug abuse programs. If such information is present, then the following federally mandated warning applies: This information has been disclosed to you from records protected by federal confidentiality rules (42 CFR part 2). The federal rules prohibit you from making any further disclosure of this information unless further disclosure is expressly permitted by the written consent of the person to whom it pertains or as otherwise permitted by 42 CFR part 2. A general authorization for the release of medical or other information is NOT sufficient for this purpose. The Federal rules restrict any use of the information to criminally investigate or prosecute any alcohol or drug abuse patient.The records that you are about to access may contain highly sensitive health information, the redisclosure of which is protected by Article 27-F of the [facility] Public Health law. If you continue you may have access to information: Regarding HIV / AIDS; Provided by facilities licensed or operated by the [facility] Office of Mental Health; or Provided by the [facility] Office for People With Developmental Disabilities. If such information is present, then the following [facility] mandated warning applies: This information has been disclosed to you from confidential records which are protected by state law. State law prohibits you from making any further disclosure of this information without the specific written consent of the person to whom it pertains, or as otherwise permitted by law. Any unauthorized further disclosure in violation of state law may result in a fine or mcfp sentence or both. A general authorization for the release of medical or other information is NOT sufficient authorization for further disc losure. Encounters Encounter Providers Location Date Indications Data Source(s ) ( ESTOB) [facility] Est OB [address] [place] [address] 02/19/2021 12:00:00 AM EST eCW1 ([facility]) ( ESTOB) [facility] Est OB [address] [place] [address] 02/09/2021 12:00:00 AM EDT eCW1 ([facility]) Unknown [address] [facility] [address] 01/30/2021 12:00:00 AM EDT eCW1 ([facility]) ( ESTOB) [facility] Est OB [address] [place] [address] 01/26/2021 12:00:00 AM EDT eCW1 ([facility]) Unknown [address] [facility] [address] 01/22/2021 12:00:00 AM EDT eCW1 ([facility]) ( ESTOB) [facility] Est OB [address] [place] [address] 01/09/2021 12:00:00 AM EDT eCW1 ([facility]) Unknown [address] [facility] [address] 01/01/2021 12:00:00 AM EDT eCW1 ([facility]) ( ESTOB) enter Est OB [address] [place] [address] 12/26/2020 12:00:00 AM EDT eCW1 ([facility]) Unknown [address] [facility] [address] 12/26/2020 12:00:00 AM EDT eCW1 ([facility]) Unknown [address] [facility] [address] 12/14/2020 12:00:00 AM EDT eCW1 ([facility]) Unknown [address] [facility] [address] 12/07/2020 12:00:00 AM EDT eCW1 ([facility]) Unknown [address] [facility] [address] 11/29/2020 12:00:00 AM EDT eCW1 ([facility]) ( ESTOB) [facility] Est [facility] [address] [place] [address] 11/28/2020 12:00:00 AM EDT eCW1 ([facility]) ( ESTOB) [facility] Est [facility] [address] [place] [address] 11/10/2020 12:00:00 AM EDT eCW1 ([facility]) ( ESTOB) [facility] Est [facility] [address] [place] [address] 10/17/2020 12:00:00 AM EDT eCW1 ([facility]) [place] [address] [facility] [address] 10/16/2020 12:00:00 AM EDT eCW1 ([facility]) [place] [address] [facility] [address] 10/13/2020 12:00:00 AM EDT eCW1 ([facility]) ( NV) enter Nurse Visit [address] [place] [address] 10/13/2020 12:00:00 AM EDT eCW1 ([facility]) Unknown [address] [facility] [address] 10/13/2020 12:00:00 AM EDT eCW1 ([facility]) ( ESTOB) enter Est OB [address] [place] [address] 10/05/2020 12:00:00 AM EDT eCW1 ([facility]) [place] [address] [facility] [address] 09/20/2020 12:00:00 AM EDT eCW1 ([facility]) (WC ESTOB) [facility] Est [facility] [address] [place] [address] 09/19/2020 12:00:00 AM EDT eCW1 ([facility]) (WC ESTOB) [facility] Est [facility] [address] [place] [address] 09/06/2020 12:00:00 AM EDT eCW1 ([facility]) Unknown [address] [facility] [address] 08/29/2020 12:00:00 AM EDT eCW1 ([facility]) (WC ESTOB) [facility] Est [facility] [address] [place] [address] 08/15/2020 12:00:00 AM EDT eCW1 ([facility]) Unknown [address] [facility] [address] 08/03/2020 12:00:00 AM EDT eCW1 ([facility]) (WC ESTOB) [facility] Est [facility] [address] [place] [address] 07/27/2020 12:00:00 AM EDT eCW1 ([facility]) Unknown [address] [facility] [address] 07/27/2020 12:00:00 AM EDT eCW1 ([facility]) Unknown [address] [facility] [address] 07/27/2020 12:00:00 AM EDT eCW1 ([facility]) Outpatient [address] [facility] [address] 07/03/2020 12:00:00 AM EDT eCW1 ([facility]) Unknown [address] [facility] [address] 06/30/2020 12:00:00 AM EDT eCW1 ([facility]) Unknown [address] [facility] [address] 06/29/2020 12:00:00 AM EDT eCW1 ([facility]) Unknown [address] [facility] [address] 06/28/2020 12:00:00 AM EDT eCW1 ([facility]) Unknown [address] [facility] [address] 06/05/2020 12:00:00 AM EST eCW1 ([facility]) Unknown [address] [facility] [address] 05/28/2020 12:00:00 AM EST eCW1 ([facility]) Unknown [address] [facility] [address] 05/24/2020 12:00:00 AM EST eCW1 ([facility]) Unknown [address] [facility] [address] 05/08/2020 12:00:00 AM EST eCW1 ([facility]) Outpatient [address] [facility] [address] 05/04/2020 12:00:00 AM EST eCW1 ([facility]) Unknown [address] [facility] [address] 05/04/2020 12:00:00 AM EST eCW1 ([facility]) Unknown [address] [facility] [address] 04/17/2020 12:00:00 AM EST eCW1 ([facility]) Unknown [address] [facility] [address] 04/12/2020 12:00:00 AM EST eCW1 ([facility]) Unknown [address] [facility] [address] 04/03/2020 12:00:00 AM EST eCW1 ([facility]) Unknown [address] [facility] [address] 03/22/2020 12:00:00 AM EST eCW1 ([facility]) Unknown [address] [facility] [address] 02/23/2020 12:00:00 AM EST eCW1 ([facility]) Outpatient [address] [facility] [address] 02/22/2020 12:00:00 AM EST eCW1 ([facility]) Unknown [address] [facility] [address] 02/22/2020 12:00:00 AM EST eCW1 ([facility]) Unknown [address] [facility] [address] 02/15/2020 12:00:00 AM EST eCW1 ([facility]) Unknown [address] [facility] [address] 02/14/2020 12:00:00 AM EST eCW1 ([facility]) Unknown [address] [facility] [address] 12/28/2019 12:00:00 AM EDT eCW1 ([facility]) Immunizations Vaccine Date Status Description Data Source(s) New in 2011. IIV4 01/26/2021 01:45:00 PM EDT completed eCW1 ([facility]) New in 2011. IIV4 01/26/2021 01:45:00 PM EDT completed eCW1 ([facility]) New in 2011. IIV4 01/26/2021 01:45:00 PM EDT completed eCW1 ([facility]) New in 2011. IIV4 01/26/2021 01:45:00 PM EDT completed eCW1 ([facility]) Tdap 01/09/2021 07:56:00 AM EDT completed e CW1 ([facility]) Tdap 01/09/2021 07:56:00 AM EDT completed e CW1 ([facility]) Tdap 01/09/2021 07:56:00 AM EDT completed e CW1 ([facility]) Tdap 01/09/2021 07:56:00 AM EDT completed e CW1 ([facility]) Tdap 01/09/2021 07:56:00 AM EDT completed e CW1 ([facility]) Tdap 01/09/2021 07:56:00 AM EDT completed e CW1 ([facility]) 10/13/2020 10:31:00 AM EDT completed e CW1 ([facility]) 10/13/2020 10:31:00 AM EDT completed e CW1 ([facility]) 10/13/2020 10:31:00 AM EDT completed e CW1 ([facility]) 10/13/2020 10:31:00 AM EDT completed e CW1 ([facility]) 10/13/2020 10:31:00 AM EDT completed e CW1 ([facility]) 10/13/2020 10:31:00 AM EDT completed e CW1 ([facility]) 10/13/2020 10:31:00 AM EDT completed e CW1 ([facility]) 10/13/2020 10:31:00 AM EDT completed e CW1 ([facility]) 10/13/2020 10:31:00 AM EDT completed e CW1 ([facility]) 10/13/2020 10:31:00 AM EDT completed e CW1 ([facility]) 10/13/2020 10:31:00 AM EDT completed e CW1 ([facility]) 10/13/2020 10:31:00 AM EDT completed e CW1 ([facility]) 10/13/2020 10:31:00 AM EDT completed e CW1 ([facility]) 10/13/2020 10:31:00 AM EDT completed e CW1 ([facility]) 10/13/2020 10:31:00 AM EDT completed e CW1 ([facility]) 10/13/2020 10:31:00 AM EDT completed e CW1 ([facility]) 10/13/2020 10:31:00 AM EDT completed e CW1 ([facility]) influenza, recombinant, quadrIvalent,injectable, prese rvative free 02/22/2020 11:29:00 AM EST completed eCW1 ([facility]) influenza, recombinant, quadrIvalent,injectable, prese rvative free 02/22/2020 11:29:00 AM EST completed eCW1 ([facility]) influenza, recombinant, quadrIvalent,injectable, prese rvative free 02/22/2020 11:29:00 AM EST completed eCW1 ([facility]) influenza, recombinant, quadrIvalent,injectable, prese rvative free 02/22/2020 11:29:00 AM EST completed eCW1 ([facility]) influenza, recombinant, quadrIvalent,injectable, prese rvative free 02/22/2020 11:29:00 AM EST completed eCW1 ([facility]) influenza, recombinant, quadrIvalent,injectable, prese rvative free 02/22/2020 11:29:00 AM EST completed eCW1 ([facility]) influenza, recombinant, quadrIvalent,injectable, prese rvative free 02/22/2020 11:29:00 AM EST completed eCW1 ([facility]) influenza, recombinant, quadrIvalent,injectable, prese rvative free 02/22/2020 11:29:00 AM EST completed eCW1 ([facility]) influenza, recombinant, quadrIvalent,injectable, prese rvative free 02/22/2020 11:29:00 AM EST completed eCW1 ([facility]) influenza, recombinant, quadrIvalent,injectable, prese rvative free 02/22/2020 11:29:00 AM EST completed eCW1 ([facility]) influenza, recombinant, quadrIvalent,injectable, prese rvative free 02/22/2020 11:29:00 AM EST completed eCW1 ([facility]) influenza, recombinant, quadrIvalent,injectable, prese rvative free 02/22/2020 11:29:00 AM EST completed eCW1 ([facility]) influenza, recombinant, quadrIvalent,injectable, prese rvative free 02/22/2020 11:29:00 AM EST completed eCW1 ([facility]) influenza, recombinant, quadrIvalent,injectable, prese rvative free 02/22/2020 11:29:00 AM EST completed eCW1 ([facility]) influenza, recombinant, quadrIvalent,injectable, prese rvative free 02/22/2020 11:29:00 AM EST completed eCW1 ([facility]) influenza, recombinant, quadrIvalent,injectable, prese rvative free 02/22/2020 11:29:00 AM EST completed eCW1 ([facility]) influenza, recombinant, quadrIvalent,injectable, prese rvative free 02/22/2020 11:29:00 AM EST completed eCW1 ([facility]) influenza, recombinant, quadrIvalent,injectable, prese rvative free 02/22/2020 11:29:00 AM EST completed eCW1 ([facility]) influenza, recombinant, quadrIvalent,injectable, prese rvative free 02/22/2020 11:29:00 AM EST completed eCW1 ([facility]) influenza, recombinant, quadrIvalent,injectable, prese rvative free 02/22/2020 11:29:00 AM EST completed eCW1 ([facility]) influenza, recombinant, quadrIvalent,injectable, prese rvative free 02/22/2020 11:29:00 AM EST completed eCW1 ([facility]) influenza, recombinant, quadrIvalent,injectable, prese rvative free 02/22/2020 11:29:00 AM EST completed eCW1 ([facility]) influenza, recombinant, quadrIvalent,injectable, prese rvative free 02/22/2020 11:29:00 AM EST completed eCW1 ([facility]) influenza, recombinant, quadrIvalent,injectable, prese rvative free 02/22/2020 11:29:00 AM EST completed eCW1 ([facility]) influenza, recombinant, quadrIvalent,injectable, prese rvative free 02/22/2020 11:29:00 AM EST completed eCW1 ([facility]) influenza, recombinant, quadrIvalent,injectable, prese rvative free 02/22/2020 11:29:00 AM EST completed eCW1 ([facility]) influenza, recombinant, quadrIvalent,injectable, prese rvative free 02/22/2020 11:29:00 AM EST completed eCW1 ([facility]) influenza, recombinant, quadrIvalent,injectable, prese rvative free 02/22/2020 11:29:00 AM EST completed eCW1 ([facility]) influenza, recombinant, quadrIvalent,injectable, prese rvative free 02/22/2020 11:29:00 AM EST completed eCW1 ([facility]) influenza, recombinant, quadrIvalent,injectable, prese rvative free 02/22/2020 11:29:00 AM EST completed eCW1 ([facility]) influenza, recombinant, quadrIvalent,injectable, prese rvative free 02/22/2020 11:29:00 AM EST completed eCW1 ([facility]) influenza, recombinant, quadrIvalent,injectable, prese rvative free 02/22/2020 11:29:00 AM EST completed eCW1 ([facility]) influenza, recombinant, quadrIvalent,injectable, prese rvative free 02/22/2020 11:29:00 AM EST completed eCW1 ([facility]) influenza, recombinant, quadrIvalent,injectable, prese rvative free 02/22/2020 11:29:00 AM EST completed eCW1 ([facility]) influenza, recombinant, quadrIvalent,injectable, prese rvative free 02/22/2020 11:29:00 AM EST completed eCW1 ([facility]) influenza, recombinant, quadrIvalent,injectable, prese rvative free 02/22/2020 11:29:00 AM EST completed eCW1 ([facility]) influenza, recombinant, quadrIvalent,injectable, prese rvative free 02/22/2020 11:29:00 AM EST completed eCW1 ([facility]) influenza, recombinant, quadrIvalent,injectable, prese rvative free 02/22/2020 11:29:00 AM EST completed eCW1 ([facility]) influenza, recombinant, quadrIvalent,injectable, prese rvative free 02/22/2020 11:29:00 AM EST completed eCW1 ([facility]) influenza, recombinant, quadrIvalent,injectable, prese rvative free 02/22/2020 11:29:00 AM EST completed eCW1 ([facility]) influenza, recombinant, quadrIvalent,injectable, prese rvative free 02/22/2020 11:29:00 AM EST completed eCW1 ([facility]) influenza, recombinant, quadrIvalent,injectable, prese rvative free 02/22/2020 11:29:00 AM EST completed eCW1 ([facility]) influenza, recombinant, quadrIvalent,injectable, prese rvative free 02/22/2020 11:29:00 AM EST completed eCW1 ([facility]) influenza, recombinant, quadrIvalent,injectable, prese rvative free 02/22/2020 11:29:00 AM EST completed eCW1 ([facility]) influenza, recombinant, quadrIvalent,injectable, prese rvative free 02/22/2020 11:29:00 AM EST completed eCW1 ([facility]) influenza, recombinant, quadrIvalent,injectable, prese rvative free 02/22/2020 11:29:00 AM EST completed eCW1 ([facility]) Medications Medication Brand Name Start Date Product Form Dose Route Admi nistrative Instructions Pharmacy Instructions Status Indications Reaction Description Data Source(s) Acetaminophen 325 MG / butalbital 50 MG / Caffeine 40 MG Oral Capsule Jufkrdjblc-NXMW-Gtdgnsay 50-325-40 MG Vctkjggtkn-HAJF-Omoistel 50-325-40 MG 02/19/2021 12:00:00 AM EST 2.0 {capsule_as_needed} active Xtpxqsxohz-SBVU-Ifoobgqn 50-325-40 MG eCW1 ([facility]) Acetaminophen 325 MG / butalbital 50 MG / Caffeine 40 MG Oral Capsule 50-325-40 mg BUTALB/ACETAMINOPHEN/CAFFEINE 02/19/2021 12:00:00 AM EST capsule 2 0 TAKE TWO CAPSULES BY MOUTH EVERY 4 HOURS NEEDED TAKE TWO CAPSULES BY MOUTH EVERY 4 HOURS NEEDED SOLD: 02/19/2021 Rico Iraheta demetrio Acetaminophen 325 MG / butalbital 50 MG / Caffeine 40 MG Oral Capsule [Esgic] Esgic 50-325-40 MG Esgic 50-325-40 MG 11/10/2020 12:00:00 AM EDT 1.0 {capsule_as_needed} active Esgic 50-325 -40 MG eCW1 ([facility]) Acetaminophen 325 MG / butalbital 50 MG / Caffeine 40 MG Oral Capsule [Esgic] Esgic 50-325-40 MG Esgic 50-325-40 MG 11/10/2020 12:00:00 AM EDT 1.0 {capsule_as_needed} active Esgic 50-325 -40 MG eCW1 ([facility]) Acetaminophen 325 MG / butalbital 50 MG / Caffeine 40 MG Oral Capsule [Esgic] Esgic 50-325-40 MG Esgic 50-325-40 MG 11/10/2020 12:00:00 AM EDT 1.0 {capsule_as_needed} active Esgic 50-325 -40 MG eCW1 ([facility]) Acetaminophen 325 MG / butalbital 50 MG / Caffeine 40 MG Oral Capsule [Esgic] Esgic 50-325-40 MG Esgic 50-325-40 MG 11/10/2020 12:00:00 AM EDT 1.0 {capsule_as_needed} active Esgic 50-325 -40 MG eCW1 ([facility]) Acetaminophen 325 MG / butalbital 50 MG / Caffeine 40 MG Oral Capsule [Esgic] Esgic 50-325-40 MG Esgic 50-325-40 MG 11/10/2020 12:00:00 AM EDT 1.0 {capsule_as_needed} suspended Esgic 50-3 25-40 MG eCW1 ([facility]) Acetaminophen 325 MG / butalbital 50 MG / Caffeine 40 MG Oral Capsule [Esgic] Esgic 50-325-40 MG Esgic 50-325-40 MG 11/10/2020 12:00:00 AM EDT 1.0 {capsule_as_needed} suspended Esgic 50-3 25-40 MG eCW1 ([facility]) Acetaminophen 325 MG / butalbital 50 MG / Caffeine 40 MG Oral Capsule [Esgic] Esgic 50-325-40 MG Esgic 50-325-40 MG 11/10/2020 12:00:00 AM EDT 1.0 {capsule_as_needed} active Esgic 50-325 -40 MG eCW1 ([facility]) Acetaminophen 325 MG / butalbital 50 MG / Caffeine 40 MG Oral Capsule [Esgic] Esgic 50-325-40 MG Esgic 50-325-40 MG 11/10/2020 12:00:00 AM EDT 1.0 {capsule_as_needed} active Esgic 50-325 -40 MG eCW1 ([facility]) Acetaminophen 325 MG / butalbital 50 MG / Caffeine 40 MG Oral Capsule [Esgic] Esgic 50-325-40 MG Esgic 50-325-40 MG 11/10/2020 12:00:00 AM EDT 1.0 {capsule_as_needed} active Esgic 50-325 -40 MG eCW1 ([facility]) Acetaminophen 325 MG / butalbital 50 MG / Caffeine 40 MG Oral Capsule [Esgic] Esgic 50-325-40 MG Esgic 50-325-40 MG 11/10/2020 12:00:00 AM EDT 1.0 {capsule_as_needed} suspended Esgic 50-3 25-40 MG eCW1 ([facility]) Acetaminophen 325 MG / butalbital 50 MG / Caffeine 40 MG Oral Capsule [Esgic] Esgic 50-325-40 MG Esgic 50-325-40 MG 11/10/2020 12:00:00 AM EDT 1.0 {capsule_as_needed} active Esgic 50-325 -40 MG eCW1 ([facility]) Acetaminophen 325 MG / butalbital 50 MG / Caffeine 40 MG Oral Capsule [Esgic] Esgic 50-325-40 MG Esgic 50-325-40 MG 11/10/2020 12:00:00 AM EDT 1.0 {capsule_as_needed} active Esgic 50-325 -40 MG eCW1 ([facility]) Acetaminophen 325 MG / butalbital 50 MG / Caffeine 40 MG Oral Capsule [Esgic] Esgic 50-325-40 MG Esgic 50-325-40 MG 11/10/2020 12:00:00 AM EDT 1.0 {capsule_as_needed} active Esgic 50-325 -40 MG eCW1 ([facility]) Acetaminophen 325 MG / butalbital 50 MG / Caffeine 40 MG Oral Capsule [Esgic] Esgic 50-325-40 MG Esgic 50-325-40 MG 11/10/2020 12:00:00 AM EDT 1.0 {capsule_as_needed} suspended Esgic 50-3 25-40 MG eCW1 ([facility]) 50 mg 07/28/2020 12:00:00 AM EDT tablet 30 TAKE ONE TABLET BY MOUTH BEFORE BEDTIME TAKE ONE TABLET BY MOUTH BEFORE BEDTIME SOLD: 07/30/2020 [facility] 100 mg 07/28/2020 12:00:00 AM EDT tablet sustained-releas e 12 hr 30 TAKE ONE TABLET BY MOUTH EVERY DAY TAKE ONE TABLET BY MOUTH EVERY DAY SOLD: 07/30/2020 [facility] 50 mg 07/28/2020 12:00:00 AM EDT tablet 30 TAKE ONE TABLET BY MOUTH BEFORE BEDTIME TAKE ONE TABLET BY MOUTH BEFORE BEDTIME SOLD: 09/01/2020 [facility] 75 mg 07/03/2020 12:00:00 AM EDT tablet 30 TAKE ONE TABLET BY MOUTH EVERY DAY TAKE ONE TABLET BY MOUTH EVERY DAY SOLD: 07/03/2020 [facility] 50 mg 05/25/2020 12:00:00 AM EST tablet 30 TAKE ONE TABLET BY MOUTH EVERY DAY BEFORE BEDTIME TAKE ONE TABLET BY MOUTH EVERY DAY BEFORE BEDTIME SOLD : 06/28/2020 [facility] 50 mg 05/25/2020 12:00:00 AM EST tablet 30 TAKE ONE TABLET BY MOUTH EVERY DAY BEFORE BEDTIME TAKE ONE TABLET BY MOUTH EVERY DAY BEFORE BEDTIME SOLD : 05/25/2020 [facility] 12 HR Bupropion Hydrochloride 100 MG Ext ended Release Oral Tablet BuPROPion HCl ER (SR) 100 MG BuPROPion HCl ER (SR) 100 MG 05/08/2020 12:00:00 AM EST 1.0 {tablet_in_the_morning} active BuPROPio n HCl ER (SR) 100 MG eCW1 ([facility]) 12 HR Bupropion Hydrochloride 100 MG Ext ended Release Oral Tablet buPROPion HCl ER (SR) 100 MG buPROPion HCl ER (SR) 100 MG 05/08/2020 12:00:00 AM EST 1.0 {tablet} active buPROPion HCl ER (SR) 1 00 MG eCW1 ([facility]) 12 HR Bupropion Hydrochloride 100 MG Ext ended Release Oral Tablet BuPROPion HCl ER (SR) 100 MG BuPROPion HCl ER (SR) 100 MG 05/08/2020 12:00:00 AM EST 1.0 {tablet_in_the_morning} active BuPROPio n HCl ER (SR) 100 MG eCW1 ([facility]) 12 HR Bupropion Hydrochloride 100 MG Ext ended Release Oral Tablet buPROPion HCl ER (SR) 100 MG buPROPion HCl ER (SR) 100 MG 05/08/2020 12:00:00 AM EST 1.0 {tablet} active buPROPion HCl ER (SR) 1 00 MG eCW1 ([facility]) 12 HR Bupropion Hydrochloride 100 MG Ext ended Release Oral Tablet buPROPion HCl ER (SR) 100 MG buPROPion HCl ER (SR) 100 MG 05/08/2020 12:00:00 AM EST 1.0 {tablet} active buPROPion HCl ER (SR) 1 00 MG eCW1 ([facility]) 12 HR Bupropion Hydrochloride 100 MG Ext ended Release Oral Tablet buPROPion HCl ER (SR) 100 MG buPROPion HCl ER (SR) 100 MG 05/08/2020 12:00:00 AM EST 1.0 {tablet} active buPROPion HCl ER (SR) 1 00 MG eCW1 ([facility]) 12 HR Bupropion Hydrochloride 100 MG Ext ended Release Oral Tablet buPROPion HCl ER (SR) 100 MG buPROPion HCl ER (SR) 100 MG 05/08/2020 12:00:00 AM EST 1.0 {tablet} active buPROPion HCl ER (SR) 1 00 MG [facility]1 ([facility] [facility]) 12 HR Bupropion Hydrochloride 100 MG Ext ended Release Oral Tablet buPROPion HCl ER (SR) 100 MG buPROPion HCl ER (SR) 100 MG 05/08/2020 12:00:00 AM EST 1.0 {tablet} active buPROPion HCl ER (SR) 1 00 MG eCW1 ([facility]) 12 HR Bupropion Hydrochloride 100 MG Ext ended Release Oral Tablet BuPROPion HCl ER (SR) 100 MG BuPROPion HCl ER (SR) 100 MG 05/08/2020 12:00:00 AM EST 1.0 {tablet_in_the_morning} active BuPROPio n HCl ER (SR) 100 MG eCW1 ([facility]) 12 HR Bupropion Hydrochloride 100 MG Ext ended Release Oral Tablet buPROPion HCl ER (SR) 100 MG buPROPion HCl ER (SR) 100 MG 05/08/2020 12:00:00 AM EST 1.0 {tablet} active buPROPion HCl ER (SR) 1 00 MG eCW1 ([facility]) 12 HR Bupropion Hydrochloride 100 MG Ext ended Release Oral Tablet buPROPion HCl ER (SR) 100 MG buPROPion HCl ER (SR) 100 MG 05/08/2020 12:00:00 AM EST 1.0 {tablet} active buPROPion HCl ER (SR) 1 00 MG eCW1 ([facility]) 12 HR Bupropion Hydrochloride 100 MG Ext ended Release Oral Tablet buPROPion HCl ER (SR) 100 MG buPROPion HCl ER (SR) 100 MG 05/08/2020 12:00:00 AM EST 1.0 {tablet} active buPROPion HCl ER (SR) 1 00 MG eCW1 ([facility]) 12 HR Bupropion Hydrochloride 100 MG Ext ended Release Oral Tablet buPROPion HCl ER (SR) 100 MG buPROPion HCl ER (SR) 100 MG 05/08/2020 12:00:00 AM EST 1.0 {tablet} active buPROPion HCl ER (SR) 1 00 MG eCW1 ([facility]) 12 HR Bupropion Hydrochloride 100 MG Ext ended Release Oral Tablet BuPROPion HCl ER (SR) 100 MG BuPROPion HCl ER (SR) 100 MG 05/08/2020 12:00:00 AM EST 1.0 {tablet} active BuPROPion HCl ER (SR) 1 00 MG eCW1 ([facility]) 12 HR Bupropion Hydrochloride 100 MG Ext ended Release Oral Tablet BuPROPion HCl ER (SR) 100 MG BuPROPion HCl ER (SR) 100 MG 05/08/2020 12:00:00 AM EST 1.0 {tablet} active BuPROPion HCl ER (SR) 1 00 MG eCW1 ([facility]) 12 HR Bupropion Hydrochloride 100 MG Ext ended Release Oral Tablet buPROPion HCl ER (SR) 100 MG buPROPion HCl ER (SR) 100 MG 05/08/2020 12:00:00 AM EST 1.0 {tablet} active buPROPion HCl ER (SR) 1 00 MG eCW1 ([facility]) 12 HR Bupropion Hydrochloride 100 MG Ext ended Release Oral Tablet BuPROPion HCl ER (SR) 100 MG BuPROPion HCl ER (SR) 100 MG 05/08/2020 12:00:00 AM EST 1.0 {tablet_in_the_morning} active BuPROPio n HCl ER (SR) 100 MG eCW1 ([facility]) 12 HR Bupropion Hydrochloride 100 MG Ext ended Release Oral Tablet buPROPion HCl ER (SR) 100 MG buPROPion HCl ER (SR) 100 MG 05/08/2020 12:00:00 AM EST 1.0 {tablet} active buPROPion HCl ER (SR) 1 00 MG eCW1 ([facility]) 12 HR Bupropion Hydrochloride 100 MG Ext ended Release Oral Tablet buPROPion HCl ER (SR) 100 MG buPROPion HCl ER (SR) 100 MG 05/08/2020 12:00:00 AM EST 1.0 {tablet} active buPROPion HCl ER (SR) 1 00 MG eCW1 ([facility]) 12 HR Bupropion Hydrochloride 100 MG Ext ended Release Oral Tablet buPROPion HCl ER (SR) 100 MG buPROPion HCl ER (SR) 100 MG 05/08/2020 12:00:00 AM EST 1.0 {tablet} active buPROPion HCl ER (SR) 1 00 MG eCW1 ([facility]) 12 HR Bupropion Hydrochloride 100 MG Ext ended Release Oral Tablet BuPROPion HCl ER (SR) 100 MG BuPROPion HCl ER (SR) 100 MG 05/08/2020 12:00:00 AM EST 1.0 {tablet} active BuPROPion HCl ER (SR) 1 00 MG eCW1 ([facility]) 12 HR Bupropion Hydrochloride 100 MG Ext ended Release Oral Tablet buPROPion HCl ER (SR) 100 MG buPROPion HCl ER (SR) 100 MG 05/08/2020 12:00:00 AM EST 1.0 {tablet} active buPROPion HCl ER (SR) 1 00 MG eCW1 ([facility]) 12 HR Bupropion Hydrochloride 100 MG Ext ended Release Oral Tablet BuPROPion HCl ER (SR) 100 MG BuPROPion HCl ER (SR) 100 MG 05/08/2020 12:00:00 AM EST 1.0 {tablet} active BuPROPion HCl ER (SR) 1 00 MG eCW1 ([facility]) 12 HR Bupropion Hydrochloride 100 MG Ext ended Release Oral Tablet buPROPion HCl ER (SR) 100 MG buPROPion HCl ER (SR) 100 MG 05/08/2020 12:00:00 AM EST 1.0 {tablet} active buPROPion HCl ER (SR) 1 00 MG eCW1 ([facility]) 12 HR Bupropion Hydrochloride 100 MG Ext ended Release Oral Tablet buPROPion HCl ER (SR) 100 MG buPROPion HCl ER (SR) 100 MG 05/08/2020 12:00:00 AM EST 1.0 {tablet} active buPROPion HCl ER (SR) 1 00 MG eCW1 ([facility]) 12 HR Bupropion Hydrochloride 100 MG Ext ended Release Oral Tablet BuPROPion HCl ER (SR) 100 MG BuPROPion HCl ER (SR) 100 MG 05/08/2020 12:00:00 AM EST 1.0 {tablet} active BuPROPion HCl ER (SR) 1 00 MG eCW1 ([facility]) 12 HR Bupropion Hydrochloride 100 MG Ext ended Release Oral Tablet BuPROPion HCl ER (SR) 100 MG BuPROPion HCl ER (SR) 100 MG 05/08/2020 12:00:00 AM EST 1.0 {tablet} active BuPROPion HCl ER (SR) 1 00 MG eCW1 ([facility]) 12 HR Bupropion Hydrochloride 100 MG Ext ended Release Oral Tablet buPROPion HCl ER (SR) 100 MG buPROPion HCl ER (SR) 100 MG 05/08/2020 12:00:00 AM EST 1.0 {tablet} active buPROPion HCl ER (SR) 1 00 MG eCW1 ([facility]) 12 HR Bupropion Hydrochloride 100 MG Ext ended Release Oral Tablet BuPROPion HCl ER (SR) 100 MG BuPROPion HCl ER (SR) 100 MG 05/08/2020 12:00:00 AM EST 1.0 {tablet_in_the_morning} active BuPROPio n HCl ER (SR) 100 MG eCW1 ([facility]) 12 HR Bupropion Hydrochloride 100 MG Ext ended Release Oral Tablet BuPROPion HCl ER (SR) 100 MG BuPROPion HCl ER (SR) 100 MG 05/08/2020 12:00:00 AM EST 1.0 {tablet_in_the_morning} active BuPROPio n HCl ER (SR) 100 MG eCW1 ([facility]) 12 HR Bupropion Hydrochloride 100 MG Ext ended Release Oral Tablet buPROPion HCl ER (SR) 100 MG buPROPion HCl ER (SR) 100 MG 05/08/2020 12:00:00 AM EST 1.0 {tablet} active buPROPion HCl ER (SR) 1 00 MG eCW1 ([facility]) 12 HR Bupropion Hydrochloride 100 MG Ext ended Release Oral Tablet buPROPion HCl ER (SR) 100 MG buPROPion HCl ER (SR) 100 MG 05/08/2020 12:00:00 AM EST 1.0 {tablet} active buPROPion HCl ER (SR) 1 00 MG eCW1 ([facility]) 12 HR Bupropion Hydrochloride 100 MG Ext ended Release Oral Tablet BuPROPion HCl ER (SR) 100 MG BuPROPion HCl ER (SR) 100 MG 05/08/2020 12:00:00 AM EST 1.0 {tablet_in_the_morning} active BuPROPio n HCl ER (SR) 100 MG eCW1 ([facility]) 12 HR Bupropion Hydrochloride 100 MG Ext ended Release Oral Tablet BuPROPion HCl ER (SR) 100 MG BuPROPion HCl ER (SR) 100 MG 05/08/2020 12:00:00 AM EST 1.0 {tablet_in_the_morning} active BuPROPio n HCl ER (SR) 100 MG eCW1 ([facility]) 12 HR Bupropion Hydrochloride 100 MG Ext ended Release Oral Tablet buPROPion HCl ER (SR) 100 MG buPROPion HCl ER (SR) 100 MG 05/08/2020 12:00:00 AM EST 1.0 {tablet} active buPROPion HCl ER (SR) 1 00 MG eCW1 ([facility]) 12 HR Bupropion Hydrochloride 100 MG Ext ended Release Oral Tablet buPROPion HCl ER (SR) 100 MG buPROPion HCl ER (SR) 100 MG 05/08/2020 12:00:00 AM EST 1.0 {tablet} active buPROPion HCl ER (SR) 1 00 MG eCW1 ([facility]) 12 HR Bupropion Hydrochloride 100 MG Ext ended Release Oral Tablet buPROPion HCl ER (SR) 100 MG buPROPion HCl ER (SR) 100 MG 05/08/2020 12:00:00 AM EST 1.0 {tablet} active buPROPion HCl ER (SR) 1 00 MG eCW1 ([facility]) 150 mg 02/23/2020 12:00:00 AM EST tablet sustained-releas e 12 hr 30 TAKE ONE TABLET BY MOUTH EVERY MORNING TAKE ONE TABLET BY MOUTH EVERY MORNING SOLD: 02/23/2020 [facility] 12 HR Bupropion Hydrochloride 150 MG Ext ended Release Oral Tablet BuPROPion HCl ER (SR) 150 MG BuPROPion HCl ER (SR) 150 MG 02/22/2020 12:00:00 AM EST 1.0 {tablet_in_the_morning} active BuPROPio n HCl ER (SR) 150 MG eCW1 ([facility]) 12 HR Bupropion Hydrochloride 150 MG Ext ended Release Oral Tablet BuPROPion HCl ER (SR) 150 MG BuPROPion HCl ER (SR) 150 MG 02/22/2020 12:00:00 AM EST 1.0 {tablet_in_the_morning} active BuPROPio n HCl ER (SR) 150 MG eCW1 ([facility]) 12 HR Bupropion Hydrochloride 150 MG Ext ended Release Oral Tablet BuPROPion HCl ER (SR) 150 MG BuPROPion HCl ER (SR) 150 MG 02/22/2020 12:00:00 AM EST 1.0 {tablet_in_the_morning} active BuPROPio n HCl ER (SR) 150 MG eCW1 ([facility]) 12 HR Bupropion Hydrochloride 150 MG Ext ended Release Oral Tablet BuPROPion HCl ER (SR) 150 MG BuPROPion HCl ER (SR) 150 MG 02/22/2020 12:00:00 AM EST 1.0 {tablet_in_the_morning} active BuPROPio n HCl ER (SR) 150 MG eCW1 ([facility]) 12 HR Bupropion Hydrochloride 150 MG Ext ended Release Oral Tablet BuPROPion HCl ER (SR) 150 MG BuPROPion HCl ER (SR) 150 MG 02/22/2020 12:00:00 AM EST 1.0 {tablet_in_the_morning} active BuPROPio n HCl ER (SR) 150 MG eCW1 ([facility]) 12 HR Bupropion Hydrochloride 150 MG Ext ended Release Oral Tablet BuPROPion HCl ER (SR) 150 MG BuPROPion HCl ER (SR) 150 MG 02/22/2020 12:00:00 AM EST 1.0 {tablet_in_the_morning} active BuPROPio n HCl ER (SR) 150 MG eCW1 ([facility]) 12 HR Bupropion Hydrochloride 150 MG Ext ended Release Oral Tablet BuPROPion HCl ER (SR) 150 MG BuPROPion HCl ER (SR) 150 MG 02/22/2020 12:00:00 AM EST 1.0 {tablet_in_the_morning} active BuPROPio n HCl ER (SR) 150 MG eCW1 ([facility]) 12 HR Bupropion Hydrochloride 150 MG Ext ended Release Oral Tablet BuPROPion HCl ER (SR) 150 MG BuPROPion HCl ER (SR) 150 MG 02/22/2020 12:00:00 AM EST 1.0 {tablet_in_the_morning} active BuPROPio n HCl ER (SR) 150 MG eCW1 ([facility]) 12 HR Bupropion Hydrochloride 150 MG Ext ended Release Oral Tablet BuPROPion HCl ER (SR) 150 MG BuPROPion HCl ER (SR) 150 MG 02/22/2020 12:00:00 AM EST 1.0 {tablet_in_the_morning} active BuPROPio n HCl ER (SR) 150 MG eCW1 ([facility]) 50 mg 09/22/2019 12:00:00 AM EDT tablet 30 TAKE ONE TABLET BY MOUTH AT BEDTIME TAKE ONE TABLET BY MOUTH AT BEDTIME SOLD: 01/20/2020 [facility] Insurance Providers Payer name Policy type / Coverage type Policy ID Covered democrat ID Covered democrat's relationship to billings Policy Billings Plan Information [facility] [id number] SP [id number] [facility] [id number] SP [id number] [facility] [id number] [facility] [id number] [facility] [id number] SP [id number] ANSI-Commercial [id number] ANSI-Commercial [id number] ANSI-Commercial [id number] ANSI-Commercial [id number] ANSI-Commercial [id number] ANSI-Commercial [id number] ANSI-Commercial [id number] ANSI-Commercial [id number] ANSI-Commercial [id number] ANSI-Commercial [id number] ANSI-Commercial [id number] ANSI-Commercial [id number] ANSI-Commercial [id number] ANSI-Commercial [id number] ANSI-Commercial [id number] ANSI-Commercial [id number] ANSI-Commercial [id number] ANSI-Commercial [id number] ANSI-Commercial [id number] [id number] ANSI-Commercial [id number] ANSI-Commercial [id number] ANSI-Commercial [id number] ANSI-Commercial [id number] ANSI-Commercial [id number] ANSI-Commercial [id number] [id number]-[id number]-[id number] ANSI-Commercial knnifihb-[id number] ebgdedbt-[id number] ANSI-Commercial [id number] ANSI-Commercial [id number] ANSI-Commercial [id number] [facility] [id number] SP [id number] ANSI-Commercial [id number] SELF PAY ONLY [id number] SP [id number] SELF PAY ONLY [id number] SP [id number] ANSI-Commercial [id number] Problems, Conditions, and Diagnoses Code Display Name Description Problem Type Effective Dates Data Source(s) O09.292 101211178 Prior poor obstetric al history in second trimester, antepartum Problem 10/05/2020 12:00:00 AM EDT eCW1 ([facility]) F32.9 [id number] Depression Problem 07/27/2020 12:00:00 AM ED T eCW1 ([facility]) Z34.80 care Supervision of other normal P roblem 07/27/2020 12:00:00 AM EDT eCW1 ([facility]) N92.6 [id number] Late menses Problem 07/03/2020 12:00:00 AM E DT eCW1 ([facility]) E55.9 [id number] Vitamin D deficiency Problem 07/03/2020 12:0 0:00 AM EDT eCW1 ([facility]) M50.20 [id number] Protruded cervical disc Problem 05/04/2020 1 2:00:00 AM EST eCW1 ([facility]) Surgeries/Procedures Procedure Description Date Indications Data Source(s) INFLUENZA VIRUS VACC SPLIT PRSRV FREE 3 YRS/> IM 01/26 12:00:00 AM EDT eCW1 ([facility]) TDAP VACCINE 7/> YR IM 01/09/2021 12:00:00 AM EDT eCW1 ([facility]) Medication: Esthela 250 mg/mL IM (Hydroxyprogesterone) 10/13/2020 12:00:00 AM EDT eCW1 ([facility]) Immunization: Flublok Quadrivalent (18 years & older) 0.5mL IM (Influenza) 02/22/2020 12:00:00 AM EST eCW1 ([facility]) Results ID Date Data Source [id number] 02/15/2021 10:03:00 AM EST [facility] Name Value Range Interpretation Code Description Data Rachel rce(s) Supporting Document(s) SARS coronavirus 2 RNA [Presence] in Res piratory specimen by JASON with probe detection NEGATIVE [facility] This lab was ordered by [facility] a nd reported by [facility]. ID Date Data Source [id number] 02/10/2021 09:30:00 AM EDT [facility] Name Value Range Interpretation Code Description Data Rachel rce(s) Supporting Document(s) SARS-CoV-2 (COVID-19) RNA [Presence] in Respiratory specimen by JASON with probe detection Not Detected [facility] This lab was ordered by [facility] and reported by [facility]. ID Date Data Source GROUP B STREP CULTURE 02/09/2021 12:00:00 AM EDT eCW1 ([facility]) Name Value Range Interpretation Code Description Data Rachel rce(s) Supporting Document(s) GROUP B STREP CULTURE eCW1 ([facility]) ID Date Data Source [id number] 02/01/2021 10:05:00 AM EDT [facility] Name Value Range Interpretation Code Description Data Rachel rce(s) Supporting Document(s) SARS-COV 2 PCR NEGATIVE [facility] This lab was ordered by [facility] and reported by [employer]. ID Date Data Source [id number] 02/01/2021 12:00:00 AM EDT [facility] Name Value Range Interpretation Code Description Data Rachel rce(s) Supporting Document(s) SARS-CoV-2 (COVID-19) RNA [Presence] in Respiratory specimen by JASON with probe detection Not detected [facility] This lab was ordered by [facility] and r eported by [employer]. ID Date Data Source [id number] 01/12/2021 12:00:00 AM EDT [facility] Name Value Range Interpretation Code Description Data Rachel rce(s) Supporting Document(s) SARS-CoV-2 (COVID-19) RNA [Presence] in Respiratory specimen by JASON with probe detection Not detected [facility] This lab was ordered by [facility] and r eported by [employer]. ID Date Data Source [id number] 01/12/2021 12:00:00 AM EDT [facility] Name Value Range Interpretation Code Description Data Rachel rce(s) Supporting Document(s) SARS-COV 2 PCR NEGATIVE [facility] This lab was ordered by [facility] and reported by [employer]. ID Date Data Source [id number] 12/25/2020 04:10:00 PM EDT [facility] Name Value Range Interpretation Code Description Data Rachel rce(s) Supporting Document(s) SARS coronavirus 2 RNA [Presence] in Res piratory specimen by JASON with probe detection Not Detected [facility] This lab was ordered by [facility] and re ported by [employer]. ID Date Data Source [id number] 12/25/2020 12:10:00 PM EDT [facility] Name Value Range Interpretation Code Description Data Rachel rce(s) Supporting Document(s) SARS-CoV-2 NEGATIVE [facility] This lab was ordered by [facility] and reported by [facility]. ID Date Data Source [id number] 11/10/2020 04:56:00 PM EDT [facility] Name Value Range Interpretation Code Description Data Rachel rce(s) Supporting Document(s) SARS coronavirus 2 RdRp gene [Presence] in Respiratory specimen by JASON with probe detection Negative [facility] This lab was ordered by [facility] and re ported by [employer]. ID Date Data Source [id number] 10/10/2020 12:00:00 AM EDT [facility] Name Value Range Interpretation Code Description Data Rachel rce(s) Supporting Document(s) SARS-CoV2 Rapid Antigen Negative [facility] This lab was ordered by [facility] and reported by [facility]. ID Date Data Source [id number] 07/31/2020 12:00:00 AM EDT eCW1 ([facility]) Name Value Range Interpretation Code Description Data Rachel rce(s) Supporting Document(s) NEGATIVE NEGATIVE HBsAg eCW1 ([facility]) ID Date Data Source HEPATITIS C ANTIBODY INDEX 07/31/2020 12:00:00 AM EDT eCW1 ( [facility]) Name Value Range Interpretation Code Description Data Rachel rce(s) Supporting Document(s) < 0.0 <0.8 HEPATITIS C VIRUS AUDREY IND EX eCW1 ([facility]) ID Date Data Source RUBELLA IMMUNE STATUS IgG 07/31/2020 12:00:00 AM EDT eCW1 ([facility]) Name Value Range Interpretation Code Description Data Rachel rce(s) Supporting Document(s) IMMUNE IMMUNE RUBELLA IgG QUALITATIVE eCW1 ( [facility]) ID Date Data Source SYPHILIS ANTIBODY (RPR SCREEN) 07/31/2020 12:00:00 AM EDT eC W1 ([facility]) Name Value Range Interpretation Code Description Data Rachel rce(s) Supporting Document(s) NONREACTIVE NONREACTIVE SYPHILIS eCW1 ([facility]) ID Date Data Source [id number] 07/31/2020 12:00:00 AM EDT eCW1 ([facility]) Name Value Range Interpretation Code Description Data Rachel rce(s) Supporting Document(s) HIV 1&2 ANTIBODY SCREEN eCW1 ( [facility]) ID Date Data Source CHLAMYDIA & GC DNA AMPLIFICAT 07/31/2020 12:00:00 AM EDT eCW 1 ([facility]) Name Value Range Interpretation Code Description Data Rachel rce(s) Supporting Document(s) Chlamydia trachomatis rRNA [Presence] in Unspecified specimen by Probe and target amplification method NEGATIVE NEGATIVE CHLAMYDIA DNA AMPLIFICATION eCW1 ([facility]) ID Date Data Source CBC - Complete Blood Count 07/31/2020 12:00:00 AM EDT eCW1 ( [facility]) Name Value Range Interpretation Code Description Data Rachel rce(s) Supporting Document(s) 6.1 4.0-10.0 WHITE BLOOD COUNT eCW1 ([facility]) 12.1 12.0-15.5 HEMOGLOBIN eCW1 ([facility]) 3.88 4.00-5.40 RED BLOOD COUNT eCW1 ([facility]) 36.2 36.0-47.0 HEMATOCRIT eCW1 ([facility]) 93.3 80.0-96.0 MEAN CORPUSCULAR VOLUME e CW1 ([facility]) 31.2 27.0-33.0 MEAN CORPUSCULAR HEMOGLOB IN eCW1 ([facility]) 11.6 11.5-14.5 RED CELL DISTRIBUTION WID TH eCW1 ([facility]) 33.4 32.0-36.5 MEAN CORPUSCULAR HGB CONC eCW1 ([facility]) 285 150-450 PLATELET COUNT, AUTOMATED eCW1 ([facility]) ID Date Data Source Type and Screen Prenatal1 07/31/2020 12:00:00 AM EDT eCW1 ([facility]) Name Value Range Interpretation Code Description Data Rachel rce(s) Supporting Document(s) NEGATIVE AB SCREEN PNP1 GEL (VIS) eCW1 ([facility]) ID Date Data Source [id number] 06/29/2020 12:55:00 PM EDT [facility] Name Value Range Interpretation Code Description Data Rachel rce(s) Supporting Document(s) SARS-CoV-2 (COVID-19) RNA [Presence] in Respiratory specimen by JASON with probe detection Not Detected [facility] This lab was ordered by [facility] and reported by [employer] [employer] ID Date Data Source [id number] 05/30/2020 02:00:00 PM EST [facility] Name Value Range Interpretation Code Description Data Rachel rce(s) Supporting Document(s) SARS coronavirus 2 RNA Not Detected [facility] This lab was ordered by [facility] and reported by [facility]. ID Date Data Source [id number] 05/30/2020 12:00:00 AM EST [facility] Name Value Range Interpretation Code Description Data Rachel rce(s) Supporting Document(s) SARS-CoV2 Rapid Antigen Negative [facility] This lab was reported by [facility]. ID Date Data Source [id number] 04/13/2020 12:00:00 PM EST [facility] Name Value Range Interpretation Code Description Data Rachel rce(s) Supporting Document(s) SARS coronavirus 2 RNA Not Detected [facility] This lab was ordered by [facility] and reported by [facility]. ID Date Data Source [id number] 03/23/2020 12:00:00 AM EST [facility] Name Value Range Interpretation Code Description Data Rachel rce(s) Supporting Document(s) SARS-CoV-2 (COVID-19) RNA [Presence] in Respiratory specimen by JASON with probe detection [facility] This [facility] was ordered by [facility] and reported by [facility]. Procedure Social History Code Duration Value Status Description Data Source(s ) Smoking 02/20/2021 12:00:00 AM EST Never Smoker completed Never S moker eCW1 ([facility]) Smoking 02/06/2021 12:00:00 AM EDT Never Smoker completed Never S moker eCW1 ([facility]) Smoking 01/25/2021 12:00:00 AM EDT Never Smoker completed Never S moker eCW1 ([facility]) Smoking 01/25/2021 12:00:00 AM EDT Never Smoker completed Never S moker eCW1 ([facility]) Smoking 01/09/2021 12:00:00 AM EDT Never Smoker completed Never S moker eCW1 ([facility]) Smoking 01/09/2021 12:00:00 AM EDT Never Smoker completed Never S moker eCW1 ([facility]) Smoking 12/21/2020 12:00:00 AM EDT Never Smoker completed Never S moker eCW1 ([facility]) Smoking 12/21/2020 12:00:00 AM EDT Never Smoker completed Never S moker eCW1 ([facility]) Smoking 12/21/2020 12:00:00 AM EDT Never Smoker completed Never S moker eCW1 ([facility]) Smoking 11/24/2020 12:00:00 AM EDT Never Smoker completed Never S moker eCW1 ([facility]) Smoking 11/24/2020 12:00:00 AM EDT Never Smoker completed Never S moker eCW1 ([facility]) Smoking 11/24/2020 12:00:00 AM EDT Never Smoker completed Never S moker eCW1 ([facility]) Smoking 11/24/2020 12:00:00 AM EDT Never Smoker completed Never S moker eCW1 ([facility]) Smoking 11/24/2020 12:00:00 AM EDT Never Smoker completed Never S moker eCW1 ([facility]) Smoking 10/17/2020 12:00:00 AM EDT Never Smoker completed Never S moker eCW1 ([facility]) Smoking 10/17/2020 12:00:00 AM EDT Never Smoker completed Never S moker eCW1 ([facility]) Smoking 10/05/2020 12:00:00 AM EDT Never Smoker completed Never S moker eCW1 ([facility]) Smoking 10/05/2020 12:00:00 AM EDT Never Smoker completed Never S moker eCW1 ([facility]) Smoking 10/05/2020 12:00:00 AM EDT Never Smoker completed Never S moker eCW1 ([facility]) Smoking 10/05/2020 12:00:00 AM EDT Never Smoker completed Never S moker eCW1 ([facility]) Smoking 10/05/2020 12:00:00 AM EDT Never Smoker completed Never S moker eCW1 ([facility]) Smoking 09/19/2020 12:00:00 AM EDT Never Smoker completed Never S moker eCW1 ([facility]) Smoking 09/18/2020 12:00:00 AM EDT Never Smoker completed Never S moker eCW1 ([facility]) Smoking 09/06/2020 12:00:00 AM EDT Never Smoker completed Never S moker eCW1 ([facility]) Smoking 08/15/2020 12:00:00 AM EDT Never Smoker completed Never S moker eCW1 ([facility]) Smoking 07/27/2020 12:00:00 AM EDT Never Smoker completed Never S moker eCW1 ([facility]) Smoking 07/27/2020 12:00:00 AM EDT Never Smoker completed Never S moker eCW1 ([facility]) Smoking 07/27/2020 12:00:00 AM EDT Never Smoker completed Never S moker eCW1 ([facility]) Smoking 07/27/2020 12:00:00 AM EDT Never Smoker completed Never S moker eCW1 ([facility]) Smoking 07/03/2020 12:00:00 AM EDT Never Smoker completed Never S moker eCW1 ([facility]) Smoking 07/03/2020 12:00:00 AM EDT Never Smoker completed Never S moker eCW1 ([facility]) Smoking 05/04/2020 12:00:00 AM EST Never Smoker completed Never S moker eCW1 ([facility]) Smoking 05/04/2020 12:00:00 AM EST Never Smoker completed Never S moker eCW1 ([facility]) Smoking 05/04/2020 12:00:00 AM EST Never Smoker completed Never S moker eCW1 ([facility]) Smoking 05/04/2020 12:00:00 AM EST Never Smoker completed Never S moker eCW1 ([facility]) Smoking 05/04/2020 12:00:00 AM EST Never Smoker completed Never S moker eCW1 ([facility]) Smoking 05/04/2020 12:00:00 AM EST Never Smoker completed Never S moker eCW1 ([facility]) Smoking 05/04/2020 12:00:00 AM EST Never Smoker completed Never S moker eCW1 ([facility]) Smoking 05/04/2020 12:00:00 AM EST Never Smoker completed Never S moker eCW1 ([facility]) Smoking 03/22/2020 12:00:00 AM EST Never Smoker completed Never S moker eCW1 ([facility]) Smoking 03/22/2020 12:00:00 AM EST Never Smoker completed Never S moker eCW1 ([facility]) Smoking 03/22/2020 12:00:00 AM EST Never Smoker completed Never S moker eCW1 ([facility]) Smoking 03/22/2020 12:00:00 AM EST Never Smoker completed Never S moker eCW1 ([facility]) Smoking 02/22/2020 12:00:00 AM EST Never Smoker completed Never S moker eCW1 ([facility]) Smoking 02/22/2020 12:00:00 AM EST Never Smoker completed Never S moker eCW1 ([facility]) Smoking 02/22/2020 12:00:00 AM EST Never Smoker completed Never S moker eCW1 ([facility]) Vital Signs ID Date Data Source UNK Name Value Range Interpretation Code Description Data Source(s) Body weight 170 [lb_av] 170 [lb_av] eCW1 ([facility]) Body weight 77.11 kg 77.11 kg W1 ([facility]) Body height 67 [in_i] 67 [in_i] eCW1 ([facility]) Body mass index (BMI) [Ratio] 26.626 kg/m2 26.6 26 kg/m2 [facility] ([facility]) Diastolic blood pressure 70 mm[Hg] 70 mm[Hg] eCW1 ([facility]) Systolic blood pressure 108 mm[Hg] 108 mm[Hg] e CW1 ([facility]) Body weight 169 [lb_av] 169 [lb_av] eCW1 ([facility]) Body height 67 [in_i] 67 [in_i] eCW1 ([facility]) Body mass index (BMI) [Ratio] 26.469 kg/m2 26.4 69 kg/m2 [facility] ([facility]) Systolic blood pressure 122 mm[Hg] 122 mm[Hg] e CW1 ([facility]) Diastolic blood pressure 70 mm[Hg] 70 mm[Hg] eCW1 ([facility]) Body weight 162 [lb_av] 162 [lb_av] eCW1 ([facility]) Body height 67 [in_i] 67 [in_i] eCW1 ([facility]) Body mass index (BMI) [Ratio] 25.373 kg/m2 25.3 73 kg/m2 eCW1 ([facility]) Systolic blood pressure 102 mm[Hg] 102 mm[Hg] e CW1 ([facility]) Diastolic blood pressure 64 mm[Hg] 64 mm[Hg] eCW1 ([facility]) Body weight 160 [lb_av] 160 [lb_av] eCW1 ([facility]) Body height 67 [in_i] 67 [in_i] eCW1 ([facility]) Body mass index (BMI) [Ratio] 25.06 kg/m2 25.06 kg/m2 eCW1 ([facility]) Systolic blood pressure 108 mm[Hg] 108 mm[Hg] e CW1 ([facility]) Diastolic blood pressure 62 mm[Hg] 62 mm[Hg] eCW1 ([facility]) Body weight 158 [lb_av] 158 [lb_av] eCW1 ([facility]) Body weight 71.67 kg 71.67 kg W1 ([facility]) Body height 67 [in_i] 67 [in_i] eCW1 ([facility]) Body mass index (BMI) [Ratio] 24.746 kg/m2 24.7 46 kg/m2 eCW1 ([facility]) Systolic blood pressure 108 mm[Hg] 108 mm[Hg] e CW1 ([facility]) Diastolic blood pressure 64 mm[Hg] 64 mm[Hg] eCW1 ([facility]) Body weight 154 [lb_av] 154 [lb_av] eCW1 ([facility]) Body height 67 [in_i] 67 [in_i] eCW1 ([facility]) Body mass index (BMI) [Ratio] 24.12 kg/m2 24.12 kg/m2 eCW1 ([facility]) Systolic blood pressure 102 mm[Hg] 102 mm[Hg] e CW1 ([facility]) Diastolic blood pressure 60 mm[Hg] 60 mm[Hg] eCW1 ([facility]) Body weight 153 [lb_av] 153 [lb_av] eCW1 ([facility]) Body height 67 [in_i] 67 [in_i] eCW1 ([facility]) Body mass index (BMI) [Ratio] 23.963 kg/m2 23.9 63 kg/m2 eCW1 ([facility]) Systolic blood pressure 118 mm[Hg] 118 mm[Hg] e CW1 ([facility]) Diastolic blood pressure 74 mm[Hg] 74 mm[Hg] eCW1 ([facility]) Body weight 146 [lb_av] 146 [lb_av] eCW1 ([facility]) Body height 67 [in_i] 67 [in_i] eCW1 ([facility]) Body mass index (BMI) [Ratio] 22.867 kg/m2 22.8 67 kg/m2 eCW1 ([facility]) Systolic blood pressure 104 mm[Hg] 104 mm[Hg] e CW1 ([facility]) Diastolic blood pressure 68 mm[Hg] 68 mm[Hg] eCW1 ([facility]) Body weight 148.0 [lb_av] 148.0 [lb_av] eCW1 ([facility]) Body weight 67.13 kg 67.13 kg eCW1 ([facility]) Body height 67 [in_i] 67 [in_i] eCW1 ([facility]) Body mass index (BMI) [Ratio] 23.18 kg/m2 23.18 kg/m2 eCW1 ([facility]) Body weight 150 [lb_av] 150 [lb_av] eCW1 ([facility]) Body height 67 [in_i] 67 [in_i] eCW1 ([facility]) Body mass index (BMI) [Ratio] 23.493 kg/m2 23.4 93 kg/m2 eCW1 ([facility]) Diastolic blood pressure 68 mm[Hg] 68 mm[Hg] eCW1 ([facility]) Systolic blood pressure 102 mm[Hg] 102 mm[Hg] e CW1 ([facility]) Body weight 149.4 [lb_av] 149.4 [lb_av] eCW1 ([facility]) Body height 67 [in_i] 67 [in_i] eCW1 ([facility]) Body mass index (BMI) [Ratio] 23.399 kg/m2 23.3 99 kg/m2 eCW1 ([facility]) Systolic blood pressure 122 mm[Hg] 122 mm[Hg] e CW1 ([facility]) Diastolic blood pressure 70 mm[Hg] 70 mm[Hg] eCW1 ([facility]) Body weight 147.6 [lb_av] 147.6 [lb_av] eCW1 ([facility]) Body height 67 [in_i] 67 [in_i] eCW1 ([facility]) Body mass index (BMI) [Ratio] 23.117 kg/m2 23.1 17 kg/m2 eCW1 ([facility]) Systolic blood pressure 120 mm[Hg] 120 mm[Hg] e CW1 ([facility]) Diastolic blood pressure 76 mm[Hg] 76 mm[Hg] eCW1 ([facility]) Body weight 147 [lb_av] 147 [lb_av] eCW1 ([facility]) Body mass index (BMI) [Ratio] 23.02 kg/m2 23.02 kg/m2 eCW1 ([facility]) Body height 67 [in_i] 67 [in_i] eCW1 ([facility]) Systolic blood pressure 122 mm[Hg] 122 mm[Hg] e CW1 ([facility]) Diastolic blood pressure 74 mm[Hg] 74 mm[Hg] eCW1 ([facility]) Body weight 144 [lb_av] 144 [lb_av] eCW1 ([facility]) Body height 67 [in_i] 67 [in_i] eCW1 ([facility]) Body mass index (BMI) [Ratio] 22.554 kg/m2 22.5 54 kg/m2 eCW1 ([facility]) Systolic blood pressure 122 mm[Hg] 122 mm[Hg] e CW1 ([facility]) Diastolic blood pressure 80 mm[Hg] 80 mm[Hg] eCW1 ([facility]) Body weight 147 [lb_av] 147 [lb_av] eCW1 ([facility]) Body height 67 [in_i] 67 [in_i] eCW1 ([facility]) Body mass index (BMI) [Ratio] 23.02 kg/m2 23.02 kg/m2 eCW1 ([facility]) Heart rate 103 /min 103 /min eCW1 ([facility]) Respiratory rate 18 /min 18 /min eCW1 ([facility]) Body temperature 98.6 [degF] 98.6 [degF] eCW1 ( [facility]) Systolic blood pressure 110 mm[Hg] 110 mm[Hg] e CW1 ([facility]) Diastolic blood pressure 78 mm[Hg] 78 mm[Hg] eCW1 ([facility]) Body weight 151.4 [lb_av] 151.4 [lb_av] eCW1 ([facility]) Body height 67 [in_i] 67 [in_i] eCW1 ([facility]) Body mass index (BMI) [Ratio] 23.71 kg/m2 23.71 kg/m2 eCW1 ([facility]) Heart rate 83 /min 83 /min eCW1 ([facility]) Respiratory rate 18 /min 18 /min eCW1 ([facility]) Body temperature 98 [degF] 98 [degF] eCW1 ([facility]) Systolic blood pressure 116 mm[Hg] 116 mm[Hg] e CW1 ([facility]) Diastolic blood pressure 68 mm[Hg] 68 mm[Hg] eCW1 ([facility]) Body weight 148.4 [lb_av] 148.4 [lb_av] eCW1 ([facility]) Body height 67 [in_i] 67 [in_i] eCW1 ([facility]) Body mass index (BMI) [Ratio] 23.24 kg/m2 23.24 kg/m2 eCW1 ([facility]) Heart rate 69 /min 69 /min eCW1 ([facility]) Respiratory rate 20 /min 20 /min eCW1 ([facility]) Body temperature 97.9 [degF] 97.9 [degF] eCW1 ( [facility]) Systolic blood pressure 108 mm[Hg] 108 mm[Hg] e CW1 ([facility]) Diastolic blood pressure 62 mm[Hg] 62 mm[Hg] eCW1 ([facility]) Patient Treatment Plan of Care Planned Activity Planned Date Details Description Data Source (s) Acetaminophen 325 MG / butalbital 50 MG / Caffeine 40 MG Oral Capsule 02/19/2021 12:00:00 AM EST eCW1 ([facility]) Acetaminophen 325 MG / butalbital 50 MG / Caffeine 40 MG Oral Capsule [Esgic] 11/10/2020 12:00:00 AM EDT eCW1 ([facility]) 12 HR Bupropion Hydrochloride 100 MG Extended Release Oral Tablet 05/08/2020 12:00:00 AM EST eCW1 ([facility]) 12 HR Bupropion Hydrochloride 100 MG Extended Release Oral Tablet 05/08/2020 12:00:00 AM EST eCW1 ([facility]) 12 HR Bupropion Hydrochloride 100 MG Extended Release Oral Tablet 05/08/2020 12:00:00 AM EST eCW1 ([facility]) 12 HR Bupropion Hydrochloride 100 MG Extended Release Oral Tablet 05/08/2020 12:00:00 AM EST eCW1 ([facility]) 12 HR Bupropion Hydrochloride 100 MG Extended Release Oral Tablet 05/08/2020 12:00:00 AM EST eCW1 ([facility]) 12 HR Bupropion Hydrochloride 100 MG Extended Release Oral Tablet 05/08/2020 12:00:00 AM EST eCW1 ([facility]) 12 HR Bupropion Hydrochloride 100 MG Extended Release Oral Tablet 05/08/2020 12:00:00 AM EST eCW1 ([facility]) 12 HR Bupropion Hydrochloride 100 MG Extended Release Oral Tablet 05/08/2020 12:00:00 AM EST eCW1 ([facility]) 12 HR Bupropion Hydrochloride 100 MG Extended Release Oral Tablet 05/08/2020 12:00:00 AM EST eCW1 ([facility]) 12 HR Bupropion Hydrochloride 100 MG Extended Release Oral Tablet 05/08/2020 12:00:00 AM EST eCW1 ([facility]) 12 HR Bupropion Hydrochloride 100 MG Extended Release Oral Tablet 05/08/2020 12:00:00 AM EST eCW1 ([facility]) 12 HR Bupropion Hydrochloride 150 MG Extended Release Oral Tablet 02/22/2020 12:00:00 AM EST eCW1 ([facility]) 12 HR Bupropion Hydrochloride 150 MG Extended Release Oral Tablet 02/22/2020 12:00:00 AM EST eCW1 ([facility]) 12 HR Bupropion Hydrochloride 150 MG Extended Release Oral Tablet 02/22/2020 12:00:00 AM EST eCW1 ([facility])
--- NOTE | 2021-02-22 11:57 | HPEPDOC ---
Obstetrical History & Physical General Date of Admission Feb 22, 2021 at 11:25 Primary Care Physician: A History of Present Illness Patient is a 30-year-old female at 37+3 weeks by LMP consistent with 7 week US (EDC = 03/12/21) presents with contractions. Contractions increasing in intensity shortly thereafter, no bleeding. Good movement. She has neck pain for the past few days. MRI from 02/21/21 showed a previous disc herniation at C6-C7, but no new or acute changes. Chief Complaint: Contractions, term Information Provided By: Patient Age: 30 : 2 Term: 0 Pre-term: 1 Abortions: 0 Livin Care Care: Good Care Dating Final EDC: Mar 12, 2021 Final EDC by: LMP, 1st trimester (US) Antepartum Course Diagnos(e)s H/o 19 week twin loss, cervical insufficiency and shortening. Cerclage was placed and removed 02/15/21. Placed on 17-hydroxyprogesterone weekly. Past Medical History Past Medical History Medical History Neck pain Anxiety/depression Migraines Surgical History: Dilatation and Curettage Family History Significant Family History: No pertinent family hx Social History Marital Status: Family situation: Spouse/partner home Psychosocial History: Anxiety, Depression * Smoker: non-smoker Alcohol: Denies Allergies Coded Allergies: No Known Allergies (Unverified , 02/20/21) NKA Medications Scheduled Bupropion HCl (Bupropion HCl Sr) 100 Mg Tab.sr.12h, 100 MG PO DAILY No.137/Iron/Folic Acd ( Vitamin Tablet) 1 Each Tablet, 1 TAB PO DAILY Sertraline HCl (Sertraline HCl) 50 Mg Tablet, 50 MG PO DAILY Scheduled PRN Cyclobenzaprine HCl (Cyclobenzaprine HCl) 10 Mg Tablet, 10 MG PO TIDP PRN for MUSCLE SPASMS Oxycodone/Acetaminophen (Oxycodone-Acetaminophen 5-325) 1 Each Tablet, 1 TAB PO Q6HP PRN for PAIN LEVEL 7-10 Physical Examination Physical Examination GENERAL: Alert and oriented times three. BREAST: . ABDOMEN: Gravid and non-tender to touch. FETUS: Is vertex (VTX) by sterile vaginal examination (SVE), fetus is vertex (VTX) by William. HEART RATE: Regular rate and rhythm. LUNGS: Clear to auscultation (CTA). EXTREMITIES: No edema. No clonus. Deep tendon reflexes (DTRs). Vital Signs/I&O Vital Signs Date Time Temp Pulse Resp B/P (MAP) Pulse Ox O2 Delivery O2 Flow Rate FiO2 02/22/21 06:38 98.1 85 16 123/87 (99) 98 Pertinent Laboratoy Data Blood Type: O+ Group B Streptococcus: Negative Assessment/Plan Assessment Patient is a 30-year-old (G)2 para (P)0-1-0-0 at 37+3 weeks by 7-week ultrasound. Presents to Labor and Delivery (L&D) for early term labor. Plan Admit and orient. [employer] and consent. Diet: Regular. Group B Streptococcus (GBS) negative. Anticipate normal spontaneous delivery (). C-S as appropriate. DARIA MELTON OMS-3 Feb 22, 2021 11:56
[2021-02-22 12:12] LABS: HEMATOCRIT 35.3 % (36.0-47.0); HEMOGLOBIN 11.7 g/dl (12.0-15.5); MEAN CORPUSCULAR HEMOGLOBIN 31.1 pg (27.0-33.0); MEAN CORPUSCULAR HGB CONC 33.1 g/dl (32.0-36.5); MEAN CORPUSCULAR VOLUME 93.9 fl (80.0-96.0); PLATELET COUNT, AUTOMATED 217 10^3/uL (150-450); RED BLOOD COUNT 3.76 10^6/uL (4.00-5.40); WHITE BLOOD COUNT 10.9 10^3/uL (4.0-10.0)
[2021-02-22] MEDS ORDERED: ACET500T15 PO (13:04)
[2021-02-22] MEDS ORDERED: HOME MED LIST COMPLETE! XX SCH (13:05)
[2021-02-22] MEDS ORDERED: FENTANYL 2MCG/ML ROPIVACAINE 0.2% IN 0.9% NACL 100ML IVBAG As Ordered ONE (13:42)
[2021-02-22] MEDS ORDERED: ONDANSETRON 4MG/2ML VIAL IV PRN ×2 (13:55→22:20)
[2021-02-22] MEDS ORDERED: EPIDURAL COMMENT XX SCH (13:55)
[2021-02-22] MEDS ORDERED: EPIDURAL/PCA KEYS XX PRN (13:55)
[2021-02-22] MEDS ORDERED: REFRIGERATOR IV KEYS XX PRN (13:55)
[2021-02-22] MEDS ORDERED: diphenhydrAMINE 50MG/ML VIAL (J1200) IV PRN (13:55)
[2021-02-22] MEDS ORDERED: FENTANYL/ROPIVACAINE/NACL BAG 100 ML EPIDURAL SCH (13:55)
[2021-02-22] MEDS ORDERED: LACTATED RINGER'S 1000 ML IV PRN (13:55)
[2021-02-22] MEDS ORDERED: ePHEDrine SULFATE 25 MG/5 ML(5MG/ML) SYRINGE IV PRN (13:55)
[2021-02-22] MEDS ORDERED: NALOXONE INJ 0.4MG/1ML VIAL (J2310 PER 1MG) IV PRN (13:55)
[2021-02-22] MEDS ORDERED: OXYTOCIN DRIP 30 UNITS in IV 1 EA IV SCH (20:55)
[2021-02-22] MEDS ORDERED: METHYLERGONOVINE MALEATE 0.2 MG TAB PO PRN (22:20)
[2021-02-22] MEDS ORDERED: RHOGAM 300 MCG (1500 IU) INJ (J2790) IM SCH (22:20)
[2021-02-22] MEDS ORDERED: DIBUCAINE 1% OINTMENT 30GM TOP PRN (22:20)
[2021-02-22] MEDS ORDERED: ACETAMINOPHEN 500 MG TAB PO PRN (22:20)
[2021-02-22] MEDS ORDERED: IBUPROFEN 600MG TAB PO PRN (22:20)
[2021-02-22] MEDS ORDERED: ACETAMINOPHEN TAB 650MG DOSE (2X325MG) PO PRN (22:20)
[2021-02-22] MEDS ORDERED: MEASLES,MUMPS,RUBELLA VACCINE INJ (MMR-II) (90707) SC SCH (22:20)
[2021-02-22] MEDS ORDERED: DOCUSATE SODIUM 100MG CAPSULE PO PRN (22:20)
[2021-02-22] MEDS ORDERED: OXYTOCIN DRIP 30 UNITS in IV 1 EA IV ONE (22:20)
--- NOTE | 2021-02-22 22:23 | DNPDOC ---
[facility] Delivery Note Delivery Note DATE OF DELIVERY: February 22, 2021 PREDELIVERY DIAGNOSIS: 37-3/7 weeks' gestation and labor. POST DELIVERY DIAGNOSIS: Delivered. PROCEDURE: Spontaneous vaginal delivery. DIANETICIST: Dr. Alyssia Gunderson MD ANESTHESIA: Epidural. ESTIMATED BLOOD LOSS: 300 mL. FINDINGS: 6 pound 7 ounce, male infant, Score 8/9. DELIVERY SUMMARY: Patient is a 30-year-old 2 now para 1101 who was admitted to labor and delivery for labor. She did not require augmentation. She had AROM. After a 39 minute second stage of labor she had a spontaneous vaginal delivery of a 6 lb. 7 oz. male infant. No nuchal cord. Shoulders delivered with ease. Placenta delivered spontaneously and appeared intact. Pt received IV Pitocin after delivery of placenta. A first degree vaginal laceration repaired with 3-0 Chromic. Sponge and needle counts correct. ALYSSIA GUNDERSON MD Feb 22, 2021 22:23
[2021-02-23 00:01] VITALS: BP 131/83
[2021-02-23] MEDS: IBUPROFEN 800 MG TAB PO PRN ×2 (04:13→17:01)
[2021-02-23 05:53] VITALS: BP 112/71
--- NOTE | 2021-02-23 08:21 | IPNPDOC ---
Text Note Date of Service The patient was seen on 02/23/21. NOTE PP #1 Feels well. No complaints. Adequate pain management. , desires assist. Voiding. VSS, afebrile, normotensive Breasts soft, nipples intact Fundus firm, NT, down 1 FB Lochia rubra light without odor Perineum intact without edema PP #1 Routine care. Anticipate D/C in am VS,Fishbone, I+O VS, Fishbone, I+O Laboratory Tests 02/22/21 11:54 Vital Signs Date Time Temp Pulse Resp B/P (MAP) Pulse Ox O2 Delivery O2 Flow Rate FiO2 02/23/21 05:53 98.5 52 18 112/71 (85) 02/22/21 06:38 98 I&O- Last 24 Hours up to 6 AM 02/23/21 06:00 Intake Total 1500 ml Output Total 1700 ml Balance -200 ml Kindra Wiley CNM Feb 23, 2021 08:21
[2021-02-23] MEDS: PRENATAL VITAMINS CHEWABLE TABLET PO SCH (09:21)
[2021-02-23] MEDS: buPROPion (WELLBUTRIN SR) 100 MG SR TAB PO SCH (10:55)
[2021-02-23 18:00] VITALS: BP 132/75
[2021-02-24 06:00] VITALS: BP 130/93
[2021-02-24] MEDS: buPROPion (WELLBUTRIN SR) 100 MG SR TAB PO SCH (08:59)
[2021-02-24] MEDS: PRENATAL VITAMINS CHEWABLE TABLET PO SCH (08:59)
[2021-02-24] MEDS ORDERED: ACET-683 PO (11:31)
[2021-02-24] MEDS ORDERED: IBUP-1022 PO (11:31)
[2021-02-24] MEDS ORDERED: COLA100C5 PO (11:31)
== END 2021-02-24 12:00 | disposition home or self-care (01) | DRG 807 ==
LOC: M LDO 06:23 → M LDI 11:25 → M OBS 23:45
PROVIDERS: ADMIT Specialist; ATTEND Advanced Practice Midwife
PROC: 10E0XZZ Delivery of Products of Conception, External Approach (ICD-10-PCS; principal; 2021-02-22)
PROC: 0HQ9XZZ Repair Perineum Skin, External Approach (ICD-10-PCS; 2021-02-22)
PROC: 10907ZC Drainage of Amniotic Fluid, Therapeutic from Products of Conception, Via Natural or Artificial Opening (ICD-10-PCS; 2021-02-22)
DX: O70.0 First degree perineal laceration during delivery (principal); Z37.0 Single live birth; Z3A.37 37 weeks gestation of pregnancy

== ENCOUNTER → 2022-12-06 | Outpatient (CLI) | payer OTHER ==
[~2022-12-06] MED LIST changes: +ACET-683 PO; +ACET500T15 PO; +COLA100C5 PO; +IBUP-1022 PO
[2022-12-06 14:32] LABS: BASO # 0.1 10^3/uL (0.0-0.2); BASO % 1.3 % (0.0-1.0); EOS # 0.1 10^3/uL (0.0-0.5); EOS % 1.8 % (0.0-3.0); HEMATOCRIT 39.2 % (36.0-47.0); HEMOGLOBIN 12.7 g/dl (12.0-15.5); LYMPH # 1.8 10^3/uL (1.5-5.0); LYMPH % 33.3 % (24.0-44.0); MEAN CORPUSCULAR HGB CONC 32.4 g/dl (32.0-36.5); MEAN CORPUSCULAR VOLUME 98.7 fl (80.0-96.0); MONO # 0.4 10^3/uL (0.0-0.8); MONO % 7.7 % (2.0-8.0); PLATELET COUNT, AUTOMATED 351 10^3/uL (150-450); RED BLOOD COUNT 3.97 10^6/uL (4.00-5.40); WHITE BLOOD COUNT 5.4 10^3/uL (4.0-10.0)
[2022-12-06 14:59] LABS: ALKALINE PHOSPHATASE 105 U/L (46-116); ALT/SGPT 10 U/L (7.0-40); AST/SGOT < 8 U/L (<34); BILIRUBIN,TOTAL 0.3 MG/DL (0.3-1.2); BLOOD UREA NITROGEN 15 MG/DL (9-23); CARBON DIOXIDE LEVEL 30 MMOL/L (20-31); CHLORIDE LEVEL 104 MMOL/L (98-107); CHOLESTEROL LEVEL 200 MG/DL (<200); CHOLESTEROL RISK RATIO 1.89 (<5); CREATININE FOR GFR 0.64 MG/DL (0.55-1.30); GLOMERULAR FILTRATION RATE > 60.0 (>60); GLUCOSE, FASTING 90 MG/DL (60-100); HDL CHOLESTEROL 105.4 MG/DL (>40); LDL CHOLESTEROL 82.2 MG/DL (<100); NON-HDL-C 94.6 MG/DL; POTASSIUM SERUM 4.1 MMOL/L (3.5-5.1); SODIUM LEVEL 140 MMOL/L (136-145); TOTAL PROTEIN 6.8 G/DL (5.7-8.2); TRIGLYCERIDES LEVEL 62 MG/DL (<150)
[2022-12-06 15:02] LABS: FREE T4 1.07 NG/DL (0.89-1.76)
[2022-12-06 15:03] LABS: THYROID STIMULATING HORMONE 0.995 uIU/ML (0.55-4.78)
== END ==
LOC: M PLALAB 09:07
PROVIDERS: ATTEND Physician Assistant Medical
DX: Z13.220 Encounter for screening for lipoid disorders (principal); E55.9 Vitamin D deficiency, unspecified; F32.9 Major depressive disorder, single episode, unspecified
CPT/HCPCS: 36415; 80053; 80061; 82306; 84439; 84443; 85025; G0463

== ENCOUNTER → 2023-09-17 | Outpatient (CLI) | payer OTHER ==
[2023-09-17 18:43] LABS: BASO # 0.1 10^3/uL (0.0-0.2); BASO % 0.8 % (0.0-1.0); EOS # 0.1 10^3/uL (0.0-0.5); EOS % 0.8 % (0.0-3.0); HEMATOCRIT 40.5 % (36.0-47.0); HEMOGLOBIN 13.2 g/dl (12.0-15.5); LYMPH # 1.8 10^3/uL (1.5-5.0); LYMPH % 28.2 % (24.0-44.0); MEAN CORPUSCULAR HEMOGLOBIN 31.8 pg (27.0-33.0); MEAN CORPUSCULAR HGB CONC 32.6 g/dl (32.0-36.5); MEAN CORPUSCULAR VOLUME 97.6 fl (80.0-96.0); MONO # 0.5 10^3/uL (0.0-0.8); MONO % 7.6 % (2.0-8.0); NEUTROPHILS % 62.4 % (36.0-66.0); PLATELET COUNT, AUTOMATED 374 10^3/uL (150-450); RED BLOOD COUNT 4.15 10^6/uL (4.00-5.40); WHITE BLOOD COUNT 6.4 10^3/uL (4.0-10.0)
[2023-09-17 19:12] LABS: THYROID STIMULATING HORMONE 1.393 uIU/ML (0.55-4.78); TOTAL 25(OH) VITAMIN D 31.9 NG/ML (20.0-100.0)
[2023-09-17 19:14] LABS: FREE T4 0.94 NG/DL (0.89-1.76)
[2023-09-17 19:18] LABS: ALBUMIN 3.9 G/DL (3.2-5.2); ALKALINE PHOSPHATASE 107 U/L (46-116); ALT/SGPT 19 U/L (7.0-40); AST/SGOT 10 U/L (<34); BILIRUBIN,TOTAL 0.4 MG/DL (0.3-1.2); BLOOD UREA NITROGEN 13 MG/DL (9-23); CALCIUM LEVEL 9.3 MG/DL (8.5-10.1); CARBON DIOXIDE LEVEL 27 MMOL/L (20-31); CHLORIDE LEVEL 106 MMOL/L (98-107); CHOLESTEROL LEVEL 209 MG/DL (<200); CHOLESTEROL RISK RATIO 2.15 (<5); CREATININE FOR GFR 0.63 MG/DL (0.55-1.30); GLOMERULAR FILTRATION RATE > 60.0 (>60); GLUCOSE, FASTING 101 MG/DL (60-100); LDL CHOLESTEROL 96.8 MG/DL (<100); POTASSIUM SERUM 4.3 MMOL/L (3.5-5.1); SODIUM LEVEL 140 MMOL/L (136-145); TOTAL PROTEIN 6.8 G/DL (5.7-8.2); TRIGLYCERIDES LEVEL 76 MG/DL (<150)
== END ==
LOC: M PLALAB 15:16
PROVIDERS: ATTEND Physician Assistant Medical
DX: D70.9 Neutropenia, unspecified (principal); Z12.4 Encounter for screening for malignant neoplasm of cervix; E55.9 Vitamin D deficiency, unspecified; Z13.220 Encounter for screening for lipoid disorders; Z91.09 Other allergy status, other than to drugs and biological substances; F32.9 Major depressive disorder, single episode, unspecified; F41.9 Anxiety disorder, unspecified
CPT/HCPCS: 36415; 80053; 80061; 82306; 84439; 84443; 85025; G0123

== ENCOUNTER → 2025-01-31 | Outpatient (CLI) | payer OTHER ==
[~2025-01-31] MED LIST changes: +BUPR-670 PO; -BUPR1TAB52 PO; -IBUP-1022 PO; +IBUP600T42 PO
[2025-01-31 16:56] LABS: BASO # 0.1 10^3/uL (0.0-0.2); BASO % 0.7 % (0.0-1.0); EOS # 0.0 10^3/uL (0.0-0.5); EOS % 0.6 % (0.0-3.0); LYMPH # 1.8 10^3/uL (1.5-5.0); LYMPH % 27.2 % (24.0-44.0); MONO # 0.6 10^3/uL (0.0-0.8); MONO % 8.9 % (2.0-8.0); NEUTROPHILS # 4.2 10^3/uL (1.5-8.5); NEUTROPHILS % 62.3 % (36.0-66.0); PLATELET COUNT, AUTOMATED 362 10^3/uL (150-450)
[2025-01-31 17:27] LABS: ALT/SGPT 22 U/L (7.0-40); AST/SGOT 16 U/L (<34); CALCIUM LEVEL 9.5 MG/DL (8.5-10.1); CARBON DIOXIDE LEVEL 26 MMOL/L (20-31); CHLORIDE LEVEL 106 MMOL/L (98-107); CREATININE FOR GFR 0.81 MG/DL (0.55-1.30); GLOMERULAR FILTRATION RATE > 90.0 (>60); POTASSIUM SERUM 4.3 MMOL/L (3.5-5.1); SODIUM LEVEL 140 MMOL/L (136-145)
[2025-01-31 17:28] LABS: FREE T4 1.05 NG/DL (0.89-1.76); TOTAL 25(OH) VITAMIN D 38.5 NG/ML (20.0-100.0)
[2025-01-31 17:40] LABS: HCG, SERUM QUALITATIVE POSITIVE (NEGATIVE)
== END ==
LOC: M PLALAB 15:02
PROVIDERS: ATTEND Physician Assistant Medical
DX: Z36.89 Encounter for other specified antenatal screening (principal); Z3A.01 Less than 8 weeks gestation of pregnancy; O99.341 Other mental disorders complicating pregnancy, first trimester; F32.9 Major depressive disorder, single episode, unspecified; F41.9 Anxiety disorder, unspecified; O99.281 Endocrine, nutritional and metabolic diseases complicating pregnancy, first trimester; E55.9 Vitamin D deficiency, unspecified

== ENCOUNTER → 2025-03-16 | Outpatient (REF) | payer OTHER ==
[~2025-03-16] MED LIST changes: +IBUP80TA PO; +ONDA-282 PO
== END ==
LOC: M PLALAB 11:56
PROVIDERS: ATTEND Obstetrics & Gynecology
DX: Z53.9 Procedure and treatment not carried out, unspecified reason (principal)

== ENCOUNTER 2025-03-17 09:56 | Observation (INO) | payer OTHER ==
[~2025-03-17] VITALS: Ht 170.2 cm; Wt 71.8 kg
[2025-03-17] VITALS (8 sets, daily range): BP systolic 98–115; BP diastolic 53–71; TEMP 97.9–99.4; O2SAT 96–99
[2025-03-17] MEDS: DOCUSATE SODIUM 100 MG CAPSULE PO SCH (09:00)
[~2025-03-17 09:56] MED LIST changes: -IBUP80TA PO; -ONDA-282 PO
[2025-03-17] MEDS ORDERED: LIDOCAINE 2% 100 MG/5 ML SDV (FOR ANES.) As Ordered ONE (10:49)
[2025-03-17] MEDS ORDERED: ONDANSETRON 4MG/2ML VIAL As Ordered ONE (10:51)
[2025-03-17] MEDS ORDERED: dexAMETHasone 4 MG/ML 1 ML VIAL As Ordered ONE (10:52)
[2025-03-17] MEDS ORDERED: MIDAZOLAM INJ 2 MG/2 ML VIAL As Ordered ONE (10:56)
[2025-03-17] MEDS: DOXYCYCLINE HYCLATE 100 MG/10 ML VIAL As Ordered ONE (11:51)
[2025-03-17] MEDS ORDERED: ACETAMINOPHEN 1000MG/100ML IV BAG As Ordered ONE (11:59)
[2025-03-17 12:11] LABS: PLATELET COUNT, AUTOMATED 198 10^3/uL (150-450)
[2025-03-17] MEDS: SILVER NITRATE APPLICATOR (1 = QTY 10) As Ordered ONE (12:13)
[2025-03-17] MEDS ORDERED: HYDROMORPHONE HCL 0.5 MG/0.5 ML SYRINGE IV PRN (12:30)
[2025-03-17] MEDS ORDERED: ONDANSETRON 4MG/2ML VIAL IV PRN ×2 (12:30→12:55)
[2025-03-17] MEDS ORDERED: ONDA-282 PO (13:05)
[2025-03-17] MEDS ORDERED: IBUP80TA PO (13:05)
[2025-03-17] MEDS ORDERED: KETOROLAC 30 MG/ML 1 ML VIAL IV SCH (14:00)
[2025-03-17] MEDS: KETOROLAC 30 MG/ML 1 ML VIAL IV SCH (17:22)
[2025-03-18] VITALS: BP 108/66; TEMP 98.7; O2SAT 96
[2025-03-18 04:00] VITALS: BP 105/59; TEMP 98.5; O2SAT 95
[2025-03-18] MEDS: LR 1,000 ML IV SCH (07:25)
[2025-03-18 07:59] VITALS: BP 110/60; TEMP 98.7; O2SAT 98
[2025-03-18] MEDS: FLUZONE VACCINE TRI PF(25-26) 0.5ML SYRINGE IM.IMMUN ONE (08:26)
[2025-03-18] MEDS ORDERED: IBUPROFEN 800 MG TAB PO SCH (19:00)
== END 2025-03-18 10:00 | disposition home or self-care (01) ==
LOC: M SDC 09:56 → M PED 09:57
PROVIDERS: ADMIT Obstetrics & Gynecology; ATTEND Obstetrics & Gynecology
DX: O02.1 Missed abortion (principal); Z23 Encounter for immunization
CPT/HCPCS: 59820; 85027; 86850; 86900; 86901; 88305; 90656; 96374; 96376; G0008; J0131; J1100; J1271; J1885; J2250; J2405; J3010